=== PATIENT | male | born 1955 | race Caucasian/White ===

== ENCOUNTER 2020-08-31 14:01 | Outpatient (REF) | payer MEDICARE, MEDICAID, SELFPAY ==
--- NOTE | 2020-08-31 14:08 | CT_ITS ---
EXAMINATION: CT CHEST WITHOUT CONTRAST CLINICAL INFORMATION: Pulmonary nodule COMPARISON: 10/04/2019 TECHNIQUE: Multidetector volumetric CT imaging of the chest was done. Axial MIP volume rendering provided. Sagittal and coronal reformatted images were obtained. This CT examination was performed using dose optimization techniques as appropriate, variously including the following: *Automated exposure control *Adjustment of mA and/or kV according to patient size (this includes techniques or standardized protocols for targeted exams where dose is matched to indication/reason for exam; i.e. extremities or head) *Use of iterative reconstruction technique DLP: 273 mGy-cm FINDINGS: LUNGS: cc there are scattered calcified and noncalcified lymph nodes which are stable from the previous examination (see iglesias images). The largest nodule within the right lung measures 5 mm and contains central coarse calcification within the middle lobe, the largest within the left lung measures 6 mm containing central calcification within the left upper lobe. There are scattered nodules measuring 3 mm or less along the fissural pleural surfaces compatible with lymph nodes. No new or suspicious pulmonary nodules. MEDIASTINUM: Multiple enlarged mediastinal and bilateral hilar lymph nodes with associated coarse calcification are stable in size and appearance. This would include the 2.7 x 1.5 cm right paratracheal lymph node on series 3, image 20, and the 4.0 x 2.0 cm subcarinal lymph node on series 3, image 32. Heart normal in size without pericardial effusion. Great vessels normal caliber. PLEURA: There is no pleural effusion. No pleural mass. Stable areas of pleural thickening along the lateral right upper lobe. AXILLA: No lymphadenopathy. UPPER ABDOMEN: Stable punctate calcification in the upper pole of left kidney. This could represent a cortical calcification or nonobstructive stone. OSSEOUS STRUCTURES: No acute or suspicious osseous abnormalities. IMPRESSION: Stable calcified and noncalcified pulmonary nodules, and bulky mediastinal and bilateral hilar calcified lymph nodes. This most likely reflects granulomatous disease, such as sarcoidosis, however treated lymphoma, or less likely metastatic disease could also have this appearance.
== END 2020-08-31 14:02 | disposition home or self-care (01) ==
LOC: HO.CT 14:01
PROVIDERS: Visit Provider Internal Medicine Pulmonary Disease
DX: R91.8 Other nonspecific abnormal finding of lung field (principal)
CPT/HCPCS: 71250

== ENCOUNTER → 2020-11-12 14:11 | Outpatient (BNVA) | payer OTHER, SELFPAY | PROVIDERS: PCP Nurse Practitioner Family; Visit Provider Internal Medicine Pulmonary Disease | DX: D86.9 Sarcoidosis, unspecified (principal); R91.8 Other nonspecific abnormal finding of lung field | CPT/HCPCS: 99212 ==

== ENCOUNTER 2021-04-26 12:59 | Outpatient (REF) | payer OTHER, SELFPAY ==
--- NOTE | ~2021-04-26 | CT_ITS ---
EXAMINATION: CT CHEST WITHOUT CONTRAST CLINICAL INFORMATION: Follow-up pulmonary nodules COMPARISON: Previous chest CT scans August 2020 and September 2019 TECHNIQUE: Multidetector volumetric CT imaging of the chest was done. Axial MIP volume rendering provided. Sagittal and coronal reformatted images were obtained. This CT examination was performed using dose optimization techniques as appropriate, variously including the following: *Automated exposure control *Adjustment of mA and/or kV according to patient size (this includes techniques or standardized protocols for targeted exams where dose is matched to indication/reason for exam; i.e. extremities or head) *Use of iterative reconstruction technique DLP: 266 mGy-cm FINDINGS: [employer]: LUNGS: There are small bilateral pulmonary nodules that are stable. The largest left pulmonary nodule measures 6 mm in the central left upper lobe adjacent to a vessel with central calcification axial image 251 series 5. The largest right pulmonary nodule is a calcified nodule and measures 5 mm in the right middle lobe axial image 386 series 5. No new pulmonary nodules are seen. MEDIASTINUM: There are enlarged calcified mediastinal and bilateral hilar lymph nodes. These appear unchanged. The heart does not appear enlarged. There is no pericardial effusion. The thoracic aorta is normal in caliber. The thyroid gland has been removed. PLEURA: There is no pleural effusion. No pleural mass or thickening. AXILLA: No lymphadenopathy. UPPER ABDOMEN: Unremarkable. OSSEOUS STRUCTURES: There are degenerative changes of the spine. CT/CT chest wo con IMPRESSION: Stable calcified and noncalcified pulmonary nodules and calcified mediastinal and bilateral hilar lymph nodes.
== END 2021-04-26 13:00 | disposition home or self-care (01) ==
LOC: HO.CT 12:59
PROVIDERS: Visit Provider Internal Medicine Pulmonary Disease
DX: R91.8 Other nonspecific abnormal finding of lung field (principal)
CPT/HCPCS: 71250

== ENCOUNTER → 2021-05-14 13:37 | Outpatient (BNVA) | payer OTHER, SELFPAY | PROVIDERS: PCP Nurse Practitioner Family; Visit Provider Internal Medicine Pulmonary Disease | DX: D86.9 Sarcoidosis, unspecified (principal); R91.8 Other nonspecific abnormal finding of lung field | CPT/HCPCS: 99212 ==

== ENCOUNTER → 2021-12-10 12:56 | Outpatient (BNVA) | payer OTHER, SELFPAY | PROVIDERS: PCP Nurse Practitioner Family; Visit Provider Internal Medicine Pulmonary Disease | DX: D86.9 Sarcoidosis, unspecified (principal); R91.8 Other nonspecific abnormal finding of lung field | CPT/HCPCS: 99212 ==

== ENCOUNTER → 2022-06-17 12:41 | Outpatient (BNVA) | payer OTHER, SELFPAY | PROVIDERS: PCP Nurse Practitioner Family; Visit Provider Internal Medicine Pulmonary Disease | DX: D86.9 Sarcoidosis, unspecified (principal); R91.8 Other nonspecific abnormal finding of lung field | CPT/HCPCS: 99212 ==

== ENCOUNTER → 2023-03-27 14:51 | Outpatient (BNVA) | payer OTHER, SELFPAY | PROVIDERS: PCP Nurse Practitioner Family; Visit Provider Internal Medicine Pulmonary Disease | DX: D86.9 Sarcoidosis, unspecified (principal) | CPT/HCPCS: 99212 ==

== ENCOUNTER 2023-09-25 14:40 | Outpatient (AMB) | payer OTHER, SELFPAY ==
[2023-09-25 14:42] VITALS: BP 128/67; PULSE 84; O2SAT 96; BMI 34.7
--- NOTE | 2023-09-25 14:42 | A.OFFVIS_ITS ---
Intake Vital Signs 09/25/23 14:42 Height 5 ft 11 in Weight 249 lb 1.957 oz BMI 34.7 BP 128/67 Blood Pressure Location Lt brachial Position Sitting Pulse 84 Pulse Source Doppler Pulse Oximetry (%) 96 Oxygen Delivery Method Room Air Intake Visit Reasons: copd Allergies penicillin V Allergy (Unknown, Verified 09/25/23 14:44) Unknown bee stings Allergy (Severe, Uncoded 09/25/23 14:44) Anaphylaxis HPI copd HPI Details 68-year-old gentleman, lifetime nonsmoke r, followed for underlying sarcoidosis diagnosed with cervical lymph node biopsy.? He continues on Advair and albuterol MDI with good symptom control. He denies any recent exacerbations. [facility] Social History Advance Directives Date on File: 08/31/20 Review of Systems Const Denies daytime sleepiness, Denies excessive sweating, Denies fatigue, Denies fever(s), Denies lethargy, Denies malaise, Denies night sweats, Denies snoring and Denies weight loss Eyes Denies blurry vision and Denies itchy eyes ENT Denies nasal congestion, Denies post nasal drip, Denies sinus pain, Denies sinus pressure and Denies other ( Thrush) Card Denies chest pain, Denies pedal edema, Denies dyspnea, Denies orthopnea and Denies paroxysmal nocturnal dyspnea Resp Denies cough, Denies hemoptysis, Denies excessive phlegm production, Denies dyspnea, Denies snoring and Denies wheezing GI Denies abdominal pain and Denies heartburn Musc Denies myalgias, Denies arthralgias and Denies joint swelling Skin/Breast Denies rash Neuro Denies memory loss and Denies seizure-like activity Psych Denies abnormal sleep pattern, Denies anxiety and Denies memory loss Endo Denies excessive sweating, Denies fatigue and Denies heat intolerance Nitin/Lymph Denies easy bruising Aller/Immun Denies itchy eyes, Denies seasonal rhinorrhea and Denies wheezing Physical Exam Vital Signs: Last Vital Signs Pulse 84 09/25/23 14:42 BP 128/67 09/25/23 14:42 Pulse Ox 96 09/25/23 14:42 Oxygen Delivery Method Room Air 09/25/23 14:42 BMI result Body Mass Index 34.7 Const General: no acute distress and alert Nutritional Appearance: not obese Orientation/consciousness: Other orientation findings ( oriented) HEENT Head: Yes atraumatic Eyes General: appearance normal, both eyes and all related structures Sclerae: sclerae normal EOM: EOMs intact bilaterally Neck Neck: Yes supple Lymphatic: no lymphadenopathy noted Resp Effort & Inspection: normal respiratory effort and no use of accessory muscles Auscultation: clear to auscultation bilaterally Cardio Rate: regular rate Rhythm: regular rhythm Heart sounds: no gallops, no murmurs and no rubs Skin General skin exam: other ( warm) Extrem General: No clubbing, No cyanosis and No edema Assessment & Plan Assessment & Plan (1) Sarcoidosis: Code(s): D86.9 - Sarcoidosis, unspecified Plan: Well controlled on current regimen of Advair and albuterol MDI. Continue current regimen. Coding Level of Care Code Est Pt Level 3 (96542) Diagnoses Sarcoidosis D86.9
== END 2023-09-25 14:55 | disposition home or self-care (01) ==
PROVIDERS: PCP Nurse Practitioner Family; Visit Provider Internal Medicine Pulmonary Disease
DX: D86.9 Sarcoidosis, unspecified (principal)
CPT/HCPCS: 99213

== ENCOUNTER → 2023-09-25 14:40 | Outpatient (BNVA) | payer OTHER, SELFPAY | PROVIDERS: PCP Nurse Practitioner Family; Visit Provider Internal Medicine Pulmonary Disease | DX: D86.9 Sarcoidosis, unspecified (principal) | CPT/HCPCS: 99212 ==

== ENCOUNTER 2024-04-28 13:04 | Outpatient (AMB) | payer OTHER, SELFPAY ==
[2024-04-28 13:12] VITALS: BP 122/74; PULSE 82; O2SAT 98; BMI 34.9
--- NOTE | 2024-04-28 13:12 | A.OFFVIS_ITS ---
Vital Signs 04/28/24 13:12 Height 5 ft 11 in Weight 250 lb 3.594 oz BMI 34.9 BP 122/74 Blood Pressure Location Lt brachial Position Sitting Pulse 82 Pulse Source Doppler Pulse Oximetry (%) 98 Oxygen Delivery Method Room Air Intake Visit Reasons: copd Allergies penicillin V Allergy (Unknown, Verified 09/25/23 14:44) Unknown bee stings Allergy (Severe, Uncoded 09/25/23 14:44) Anaphylaxis HPI HPI copd: Details: 68-year-old gentleman, lifetime nonsmoker, followed for underlying sarcoidosis diagnosed with cervical lymph node biopsy.? He continues on Advair and albuterol MDI with good symptom control. He denies any recent exacerbations. [facility] Social History Advance Directives Date on File: 08/31/20 Review of Systems Const Denies daytime sleepiness, Denies excessive sweating, Denies fatigue, Denies fever(s), Denies lethargy, Denies malaise, Denies night sweats, Denies snoring and Denies weight loss Eyes Denies blurry vision and Denies itchy eyes ENT Denies nasal congestion, Denies post nasal drip, Denies sinus pain, Denies sinus pressure and Denies other ( Thrush) Card Denies chest pain, Denies pedal edema, Denies dyspnea, Denies orthopnea and Denies paroxysmal nocturnal dyspnea Resp Denies cough, Denies hemoptysis, Denies excessive phlegm production, Denies dyspnea, Denies snoring and Denies wheezing GI Denies abdominal pain and Denies heartburn Musc Denies myalgias, Denies arthralgias and Denies joint swelling Skin/Breast Denies rash Neuro Denies memory loss and Denies seizure-like activity Psych Denies abnormal sleep pattern, Denies anxiety and Denies memory loss Endo Denies excessive sweating, Denies fatigue and Denies heat intolerance Nitin/Lymph Denies easy bruising Aller/Immun Denies itchy eyes, Denies seasonal rhinorrhea and Denies wheezing Physical Exam Vital Signs: Last Vital Signs Pulse 82 04/28/24 13:12 BP 122/74 04/28/24 13:12 Pulse Ox 98 04/28/24 13:12 Oxygen Delivery Method Room Air 04/28/24 13:12 BMI result Body Mass Index 34.9 Const General: no acute distress and alert Nutritional Appearance: obese Orientation/consciousness: Other orientation findings ( oriented) HEENT Head: Yes atraumatic Eyes General: appearance normal, both eyes and all related structures Sclerae: sclerae normal EOM: EOMs intact bilaterally Neck Neck: Yes supple Lymphatic: no lymphadenopathy noted Resp Effort & Inspection: normal respiratory effort and no use of accessory muscles Auscultation: clear to auscultation bilaterally Cardio Rate: regular rate Rhythm: regular rhythm Heart sounds: no gallops, no murmurs and no rubs Skin General skin exam: other ( warm) Extrem General: No clubbing, No cyanosis and No edema Assessment & Plan Assessment & Plan (1) Sarcoidosis: Code(s): D86.9 - Sarcoidosis, unspecified Category: Medical Plan: No recent exacerbations. Continue to follow up clinically. (2) Reactive airway disease: Code(s): J45.909 - Unspecified asthma, uncomplicated Category: Medical Plan: Well controlled on Advair and albuterol MDI. Continue current regimen. Coding Level of Care Code Est Pt Level 4 (35759) Diagnoses Sarcoidosis D86.9 Reactive airway disease J45.909
== END 2024-04-28 13:59 | disposition home or self-care (01) ==
PROVIDERS: PCP Nurse Practitioner Family; Visit Provider Internal Medicine Pulmonary Disease
DX: D86.9 Sarcoidosis, unspecified (principal); J45.909 Unspecified asthma, uncomplicated
CPT/HCPCS: 99214

== ENCOUNTER → 2024-04-28 13:04 | Outpatient (BNVA) | payer OTHER, SELFPAY | PROVIDERS: PCP Nurse Practitioner Family; Visit Provider Internal Medicine Pulmonary Disease | DX: D86.9 Sarcoidosis, unspecified (principal); J45.909 Unspecified asthma, uncomplicated | CPT/HCPCS: 99212 ==

== ENCOUNTER 2025-03-09 13:23 | Outpatient (AMB) | payer OTHER, SELFPAY ==
[2025-03-09 13:24] VITALS: BP 122/70; PULSE 131; O2SAT 97; BMI 32.4
--- NOTE | 2025-03-09 13:24 | MHC.OFFVIS ---
Vital Signs 03/09/25 13:24 Height 5 ft 11 in Weight 232 lb BMI 32.4 BP 122/70 Blood Pressure Location Rt brachial Position Sitting Pulse 131 H Pulse Source Doppler Pulse Oximetry (%) 97 Oxygen Delivery Method Room Air Intake Visit Reasons: copd Allergies penicillin V Allergy (Unknown, Verified 03/09/25 13:28) Unknown bee stings Allergy (Severe, Uncoded 09/25/23 14:44) Anaphylaxis HPI HPI copd: Details: 68-year-old gentleman, lifetime nonsmoker, followed for underlying sarcoidosis diagnosed with cervical lymph node biopsy.? He is no longer able to tolerate Advair dry powder and has been relying on albuterol MDI with suboptimal control. He wants to try Airsupra. [facility] Social History Advance Directives Date on File: 08/31/20 Review of Systems Const Denies daytime sleepiness, Denies excessive sweating, Denies fatigue, Denies fever(s), Denies lethargy, Denies malaise, Denies night sweats, Denies snoring and Denies weight loss Eyes Denies blurry vision and Denies itchy eyes ENT Denies nasal congestion, Denies post nasal drip, Denies sinus pain, Denies sinus pressure and Denies other ( Thrush) Card Denies chest pain, Denies pedal edema, Denies dyspnea, Denies orthopnea and Denies paroxysmal nocturnal dyspnea Resp Denies cough, Denies hemoptysis, Denies excessive phlegm production, Denies dyspnea, Denies snoring and Denies wheezing GI Denies abdominal pain and Denies heartburn Musc Denies myalgias, Denies arthralgias and Denies joint swelling Skin/Breast Denies rash Neuro Denies memory loss and Denies seizure-like activity Psych Denies abnormal sleep pattern, Denies anxiety and Denies memory loss Endo Denies excessive sweating, Denies fatigue and Denies heat intolerance Nitin/Lymph Denies easy bruising Aller/Immun Denies itchy eyes, Denies seasonal rhinorrhea and Denies wheezing Physical Exam Vital Signs: Last Vital Signs Pulse 131 H 03/09/25 13:24 BP 122/70 03/09/25 13:24 Pulse Ox 97 03/09/25 13:24 Oxygen Delivery Method Room Air 03/09/25 13:24 BMI result Body Mass Index 32.4 Const General: no acute distress and alert Nutritional Appearance: not obese Orientation/consciousness: Other orientation findings ( oriented) HEENT Head: Yes atraumatic Eyes General: appearance normal, both eyes and all related structures Sclerae: sclerae normal EOM: EOMs intact bilaterally Neck Neck: Yes supple Lymphatic: no lymphadenopathy noted Resp Effort & Inspection: normal respiratory effort and no use of accessory muscles Auscultation: clear to auscultation bilaterally Cardio Rate: regular rate Rhythm: regular rhythm Heart sounds: no gallops, no murmurs and no rubs Skin General skin exam: other ( warm) Extrem General: No clubbing, No cyanosis and No edema Assessment & Plan Assessment & Plan (1) Sarcoidosis: Code(s): D86.9 - Sarcoidosis, unspecified Category: Medical (2) Reactive airway disease: Code(s): J45.909 - Unspecified asthma, uncomplicated Category: Medical Plan Suboptimal control on Advair as patient is not able to tolerate powder inhaler anymore. Will switch to Symbicort. Patient also wants to try Airsupra instead of albuterol. Ordered. Medications: New budesonide-formoterol 160-4.5 mcg/actuation (Symbicort) 2 puffs inhalation BID 10.2 grams 6RF albuterol-budesonide 90-80 mcg/actuation (Airsupra) 2 inhalations inhalation TID PRN 10.7 grams 6RF shortness of breath Coding Level of Care Code Est Pt Level 4 (77032) Diagnoses Sarcoidosis D86.9 Reactive airway disease J45.909
--- OUTSIDE RECORDS SUMMARY | 2025-03-09 15:42 | XMS_ITS ---
Author Name [facility] [place] [facility] [place] Address [address] [place] [address] Care Team Providers Care Unit Aide Tech Name Role Phone HUNTER MARTINEZ Primary Care Provider Unavailabl e Insurance Providers: All historical and current Section Date Range: From patient's date of to the date document was created. This section includes the names of all active insurance providers for the patient. Insurance Provider Type of Coverage Plan Name Start of Policy Coverage End of Policy Coverage Group Number Member ID Insurance Provider's Telephone Number Policy Carmona's Name Patient's Relationship to Policy Carmona [facility] Nov 16, 2014 01 [id number] LAUREL,JARRETT DE LA TORRE PATIENT MEDICARE (WNR) MEDICARE (M) PART A Jul 17, 2018 PART A [id number] LAUREL,JARRETT MEJIASONY PATIENT MEDICARE (WNR) MEDICARE (M) PART B Jul 17, 2018 PART B [id number] LAUREL,JARRETT MEJIASONY PATIENT MEDICARE (WNR) MEDICARE (M) PART A Jul 17, 2018 PART A [id number] LAUREL,JARRETT MEJIASONY PATIENT MEDICARE (WNR) MEDICARE (M) PART B Jul 17, 2018 PART B [id number] LAUREL,JARRETT DE [place] PATIENT Selected Encounter This section includes the information on record at [place] for the Encounter. Date/Time Encounter Type Encounter Description Reason Provider Source Sep 05, 2024 08:30 AM COMPRE OPH EXAM EST PT 1/> OPTOMETRY ICD-10-CM E11.3292 Type 2 diab with mild nonp rtnop without mclr edema, l eye MERHAR,NAMITA B IHE Encounter Template Text not used by VA Assessments - Encounter Diagnoses This section includes the primary and secondary diagnoses documented for the Encounter. Date/Time Primary/Secondary Diagnosis Diagnosis Name Provider Source Sep 05, 2024 08:49 AM PRIMARY Type 2 diab with mild nonp rtnop without mclr edema, l eye MERHAR,NAMITA B [place] [facility] [place] [facility] Sep 05, 2024 08:49 AM SECONDARY Age-related nuclear cataract, bilateral MERHAR,NAMITA B [facility] [place] [facility] Sep 05, 2024 08:49 AM SECONDARY Dry eye syndrome of bilateral lacrimal glands MERHAR,NAMITA B [place] [facility] [place] [facility] Sep 05, 2024 08:49 AM SECONDARY Regular astigmatism, bilateral MERHAR,NAMITA B [place] [facility] [place] [facility] Plan of Treatment: Future Appointments (+ 6 months) and Future Tests (+/- 45 days) The Plan of Treatment section includes future care activities for the patient from all [place] treatmentfacilities. This section includes future appointments and future orders which are active, pending or scheduled. Future Appointments This section includes appointments that were scheduled to occur 6 months from the date of the Encounter, up to a maximum of 20 appointments. The data comes from all [place] treatment facilities. Appointment Date/Time Appointment Type Appointme nt Facility Name Sep 06, 2024 12:00 PM AMBULATORY - NONE [facility] [place] [facility] Sep 08, 2024 11:00 AM [facility]ATORY - NONE [place] Sep 15, 2024 11:00 AM AMBULATORY - NONE [place] Sep 22, 2024 11:00 AM AMBULATORY - NONE [place] Sep 27, 2024 12:00 PM AMBULATORY - NONE [facility] [place] [facility] Sep 28, 2024 04:00 PM AMBULATORY - REHAB MEDICIN E [facility] [place] [facility] Oct 04, 2024 03:00 PM [facility]ULATORY - [facility]ICINE [place] [place] Oct 06, 2024 11:00 AM AMBULATORY - NONE [place] Oct 11, 2024 12:00 PM AMBULATORY - NONE [facility] [place] [facility] Oct 20, 2024 11:00 AM AMBULATORY - NONE [place] Oct 25, 2024 12:00 PM AMBULATORY - NONE [facility] [place] [facility] Oct 27, 2024 11:00 AM AMBULATORY - NONE [place] Oct 27, 2024 02:30 PM AMBULATORY - MEDICINE [facility] [place] [facility] Nov 03, 2024 09:00 AM AMBULATORY - MEDICINE [facility] [place] [facility] Nov 03, 2024 11:00 AM AMBULATORY - NONE [place] Dec 01, 2024 08:30 AM AMBULATORY - REHAB MEDICIN E [facility] [place] [facility] Dec 06, 2024 01:30 PM [facility]ORY [facility] Dec 08, 2024 11:00 AM AMBULATORY - NONE [place] Dec 13, 2024 12:00 PM AMBULATORY - NONE [facility] [place] [facility] Dec 15, 2024 11:00 AM AMBULATORY - NONE [place] Lab Results: +/- 30 days of the encounter This section includes the Chemistry and Hematology Lab Results on record with [place] for the patient. Radiology Reports and Pathology Reports are provided separately, in subsequent sections. Lab Results This section contains the Chemistry/Hematology Results that were resulted 30 days before or 30 daysafter the date of the Encounter. Date/Time Source Result Type Result - Unit Interpretation Reference Range Specimen Type Comment Aug 16, 2024 02:05 PM [facility] [place] [facility] T3, FREE (QU) SERUM Specimen Type: SERUM Comment: Test Performed by [employer], [employer] [facility], [address] [place] [address] Benjamin Ortiz M.D., Ph.D., Director of Laboratories , CLIA [id number] TEST PERFORMED AT: , Ordering Provider: ESTEFANI QUESADA Report Released Date/Time: Aug 16, 2024 06:36 AM Reporting Lab: [place] [facility] [place] [address] [address] Performing Lab: [facility] [place] [facility] [address] [address] T3, FREE (QU) 2.3 pg/mL 2.3-4.2 Aug 16, 2024 02:05 PM [facility] [place] [facility] THYROID TOTAL T4 SERUM Specimen Type: SERUM No comment entered. Ordering Provider: ESTEFANI QUESADA Report Released Date/Time: Aug 16, 2024 06:36 AM Reporting Lab: [facility] [place] [facility] [address] [facility] [address] Performing Lab: [facility] [place] [facility] [address] [facility] [address] THYROID TOTAL T4 7.92 ug/dL 4.5-12.0 Aug 16, 2024 02:05 PM [facility] TSH SERUM Specimen Type: SERUM No comment entered. Ordering Provider: ESTEFANI QUESADA Report Released Date/Time: Aug 16, 2024 06:36 AM Reporting Lab: [facility] [place] [facility] [address] [facility] [address] Performing Lab: [facility] [address] [facility] [address] TSH 0.98 u[IU]/mL 0.35-5.00 Social History: Smoking Status (Most current) and Tobacco Use (All prior to encounter date) This section includes the most current, and the historical, smoking and tobacco- related health factors from the [place] facility where the Encounter took place. Current Smoking Status This section includes the most current smoking, or tobacco-related health factor, from the [place] facility where the Encounter took place. Date/Time Current Smoking Status Comment Facil [facility] Dec 10, 2023 01:11 PM VA-TOBACCO NEVER USED [facility] Advance Directives: All historical and current Section Date Range: From patient's date of to the date document was created. This section includes ALL of a patient's completed or amended VA Advance and Rescinded Directives. The entries below indicate that a directive exists for the patient, but an actual copy is not included with this document. The data comes from all [place] facilities. Date Advance Directives Provider Source Aug 07, 2015 ADVANCE DIRECTIVE BEN BERNABE SEVERINO Encounter Notes: All associated encounter notes This section contains the clinical notes associated to the Encounter. Date/Time Encounter Note(s) Provider Source Sep 05, 2024 07:56 AM OPTOMETRY NOTE: LOCAL TITLE: OPTOMETRY NOTE STANDARD TITLE: OPTOMETRY NOTE DATE OF NOTE: SEP 05, 2024@07:56 ENTRY DATE: SEP 05, 2024@07:56:10 AUTHOR: NAMITA CRUZ EXP COSIGNER: URGENCY: STATUS: COMPLETED 69 WHITE MALE NOT OR Last eye exam: 09/03/23 Reason for Visit/CC: patient here for a comprehensive eye exam. Stopped the eyedrops because he didn't feel like he needed them, doing ok without them OHx: 1. Type II diabetes without diabetic retinopathy without macular edema OU 2. Nuclear sclerosis cataracts OU 3. 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 4. Refractive error OU/presbyopia 5. dry eye OU (-) Pain: (-) GALINDO: (-) Diplopia: (-) Flashes: (-) Floaters: (-) Amaurosis Fugax/Tia's: (-) Eye Injury: (+) Eye Surgery: pt denies, corneal scar OS consistent with RK (-) TBI (-) FOHx: MHx: Code Description Z77.29 Exposure to potentially hazardous substance ([facility] [id number]) H17.89 History of radial keratotomy ([facility] [id number]) R69. 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 ([facility] [id number]) E66.8 Obesity ([facility] [id number]) M17.0 Osteoarthritis of knee ([facility] [id number]) 799.9 outside providers (ICD-9-CM 799.9) C76.0 Neoplasm of neck ([facility] [id number]) D09.3 Thyroid cancer ([facility] [id number]) F20.9 Schizophrenia ([facility] [id number]) E11.65 Diabetes mellitus ([facility] [id number]) E78.5 Hyperlipidemia ([facility] [id number]) K59.00 Constipation ([facility] [id number]) Other: SYSTEMIC MEDICATIONS/OCULAR MEDICATIONS: Active and Recently Outpatient Medications (excluding Supplies): Active Outpatient Medications Status ========= 1) ALBUTEROL 90MCG (CFC-F) 200D ORAL INHL INHALE 2 PUFFS ACTIVE BY MOUTH EVERY 4 HOURS NEEDED FOR ASTHMA ATTACK 2) EMPAGLIFLOZIN 25MG TAB TAKE ONE TABLET BY MOUTH ONCE ACTIVE (S) DAILY FOR TYPE 2 DIABETES MELLITUS 3) FLUTICAS 250/SALMETEROL 50 INHL DISK 60 INHALE 1 PUFF ACTIVE BY MOUTH TWICE DAILY 4) GLUCOSE 4GM CHEW TAB CHEW FOUR TABLETS BY MOUTH ACTIVE NEEDED FOR LOW BLOOD SUGAR 5) INSULIN,GLARGINE-YFGN 100UNIT/ML PEN 3ML INJECT 10 ACTIVE (S) UNITS SUBCUTANEOUSLY ONCE DAILY FOR DIABETES 6) LEVOTHYROXINE NA (SYNTHROID) 150MCG TAB TAKE ONE ACTIVE (S) TABLET BY MOUTH EVERY MORNING 30 MINUTES BEFORE BREAKFAST FOR THYROID - TAKE ON AN EMPTY STOMACH WITH A FULL GLASS OF WATER 7) METFORMIN HCL 1000MG TAB TAKE ONE TABLET BY MOUTH ACTIVE TWICE DAILY FOR DIABETES Inactive Outpatient Medications Status ========= 1) CARBOXYMETHYLCELLULOSE NA 0.5% OPH SOLN INSTILL 1 DROP INTO EACH EYE FOUR TIMES DAILY NEEDED FOR DRYNESS Active Non-VA Medications Status ========= 1) Non-VA ASCORBIC ACID 500MG TAB 1000MG BY MOUTH ONCE ACTIVE DAILY 2) Non-VA BISACODYL 5MG EC TAB 5MG BY MOUTH TWICE DAILY ACTIVE 3) Non-VA CHOLECALCIF 50MCG (D3-2,000UNIT) TAB 2000UNIT ACTIVE BY MOUTH DAILY 4) Non-VA DOCUSATE NA 100MG CAP 100MG BY MOUTH TWICE ACTIVE DAILY 5) Non-VA FENOFIBRATE 145MG TAB 145MG BY MOUTH ONCE ACTIVE DAILY 6) Non-VA FLAXSEED CAP,ORAL BY MOUTH DAILY ACTIVE 7) Non-VA LISINOPRIL 20MG TAB 20MG BY MOUTH ONCE DAILY ACTIVE 8) Non-VA MULTIVITAMIN/MINERALS CAP/TAB 1 TABLET BY ACTIVE MOUTH AT BEDTIME 9) Non-VA OLANZAPINE 15MG TAB 15MG BY MOUTH AT BEDTIME ACTIVE 10) Non-VA POLYETHYLENE GLYCOL 3350 ORAL PWDR 17 GRAMS (1 ACTIVE CAPFUL) BY MOUTH AT BEDTIME 11) Non-VA SIMVASTATIN 80MG TAB 40MG BY MOUTH AT BEDTIME ACTIVE 19 Total Medications ALLERGIES: PENICILLIN, BEE STINGS LAST BP: 99/72 (12/10/2023 13:03) PERTINENT LABS: HEMOGLOBIN A1C; BLOOD Silvia. Date: 04/21/24 13:35 12/10/23 13:50 Test Name Result Units Range HEMOGLOBIN A1C 6.2 H 6.1 H % 4.0 - 5.6 Current Rx with last BCVA: OD:-0.75-1.89m386 20/20 OS:+0.75-0.31w321 20/20 Add:+2.50 DVA ( )sc ( x )cc OD 20/25+2 OS 20/20-1 Pupils: PERRL (-)APD EOM: Full all meridia OU, (-) pain/diplopia Confrontation Visual Swan: Full all meridia OU Subjective: OD plano -1.25 x 090 20/20 OS +1.00 -0.50 x 095 20/20 Add: +2.50 20/20 OU SLE: Lids/Lashes: clear OU Conjunctiva: white and quiet OU Corneas: mild inferior SPK OU, 4 radial scars OS Iris: flat and clear OU (-)NVI OU Anterior Chamber: deep and quiet OU Angles: open OU Lens: 1+ NS OU TAP @ 8:10am Salazar OD 18 mm Hg OS 18 mm Hg Dilating Drops: 1 gtt 1% Tropicamide OU, 2.5% phenylephrine OU (Pt. ed. on side effects) Vitreous: Syneresis OU C/D (Size and Rim Description) OD 0.25 pink & healthy OS 0.25 pink & healthy (-)NVD OU Macula OD flat and clear OS flat and clear (-)CSME OU A/V: attenuation OU with increased arterial light reflex OU Posterior Pole: clear OD, 1 dot hemorrhage superior arcade OS Periphery: Flat and intact (-)NVE, holes, tears, detachments 360 OU chorioretinal scar temporally OS Assessment/Plan: 1. 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 Pt ed on findings and importance of good blood glucose control. Monitor 2. Nuclear sclerosis cataracts OU, not visually significant. Monitor 3. 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 4. dry eye OU - defers artificial tears at this time. 5. regular astigmatism OU - order new DVO clear and sun and NVO RTC 1 year or earlier PRN Patient Education: Diabetes: Patient was educated regarding diabetes and related ocular complications including retinopathy and cataract formation as well as other related systemic complications. The importance of good blood sugar control, blood sugar testing as recommended by their PCP and the importance of timely follow up were all emphasized. patient offered and declined printed medication list Medication Reconciliation: Outpatient: Has the patient been taking medications as documented in the EMLR? YES: The patient has been taking medications as documented in the EMLR. Essential Medication List for Review used to complete this medication reconciliation. INCLUDED IN THIS LIST: Alphabetical list of active outpatient prescriptions dispensed from this [facility] (local) and dispensed from another [place] or [facility] facility (remote) as well as inpatient orders (local, pending and active), local clinic medications, locally documented non-VA medications, and local prescriptions that have or been discontinued in the past 90 days. - All changes in medications, including all non-VA/Herbal/OTC medications were entered into CPRS. - If there were any medications the patient should no longer take, they were discontinued. - The patient/caregiver was instructed to update this list, discard old lists, and take this list to the next appointment, whether with a VA or non-VA provider. JLV Link Data on this list may not be complete. Please check JLV. Allergies/ADRs (Tool #5) FACILITY ALLERGY/ADR -------- No Remote Allergy/ADR Data available for this patient [facility] [place] [facility] PENICILLIN Med Recon NoGlossary (Tool #1) INCLUDED IN THIS LIST: Alphabetical list of active outpatient prescriptions dispensed from this [place] (local) and dispensed from another [place] or [facility] facility (remote) as well as inpatient orders (local pending and active), local clinic medications, locally documented non-VA medications, and local prescriptions that have or been discontinued in the past 90 days. Non-VA Meds Last Documented On: Dec 10, 2023 NOTE The display of VA prescriptions dispensed from another [place] or [place] facility (remote) is limited to active outpatient prescription entries matched to National Drug File at the originating site and may not include some items such as investigational drugs, compounds, etc. NOT INCLUDED IN THIS LIST: Medications self-entered by the patient into personal health records (i.e. [employer]) are NOT included in this list. Non-VA medications documented outside this [place], remote inpatient orders (regardless of status) and remote clinic medications are NOT included in this list. The patient and provider must always discuss medications the patient is taking, regardless of where the medication was dispensed or obtained. -------- OUTPT ALBUTEROL 90MCG (CFC-F) 200D ORAL INHL (Status = Active) INHALE 2 PUFFS BY MOUTH EVERY 4 HOURS NEEDED FOR ASTHMA ATTACK Rx# [id number] Last Released: 07/08/24 Qty/Days Supply: Rx Expiration Date: 12/10/24 Refills Remainin Indication: FOR ASTHMA ATTACK Non-VA ASCORBIC ACID 500MG TAB TAKE TWO TABLETS BY MOUTH ONCE DAILY Medication prescribed by Non-VA provider. Non-VA BISACODYL 5MG EC TAB TAKE ONE TABLET BY MOUTH TWICE DAILY Medication prescribed by Non-VA provider. OUTPT CARBOXYMETHYLCELLULOSE NA 0.5% OPH SOLN (Status = ) INSTILL 1 DROP INTO EACH EYE FOUR TIMES DAILY NEEDED FOR DRYNESS Rx# [id number] Last Released: 09/11/23 Qty/Days Supply: Rx Expiration Date: 09/03/24 Refills Remainin Non-VA CHOLECALCIF 50MCG (D3-2,000UNIT) TAB TAKE ONE TABLET BY MOUTH DAILY Medication prescribed by Non-VA provider. Non-VA DOCUSATE NA 100MG CAP TAKE 1 CAPSULE BY MOUTH TWICE DAILY Medication prescribed by Non-VA provider. OUTPT EMPAGLIFLOZIN 25MG TAB (Status = ) TAKE ONE TABLET BY MOUTH ONCE DAILY FOR DIABETES Rx# [id number] Last Released: 04/21/24 Qty/Days Supply: Rx Expiration Date: 07/09/24 Refills Remainin OUTPT EMPAGLIFLOZIN 25MG TAB (Status = Discontinued) TAKE ONE TABLET BY MOUTH ONCE DAILY FOR TYPE 2 DIABETES MELLITUS Rx# [id number] Last Released: 07/13/24 Qty/Days Supply: Rx Expiration Date: 07/13/25 Refills Remainin Indication: FOR TYPE 2 DIABETES MELLITUS OUTPT EMPAGLIFLOZIN 25MG TAB (Status = Active/Suspended) TAKE ONE TABLET BY MOUTH ONCE DAILY FOR TYPE 2 DIABETES MELLITUS Rx# [id number] Last Released: Qt/Days Supply: Rx Expiration Date: 08/18/25 Refills Remainin Indication: FOR TYPE 2 DIABETES MELLITUS Non-VA FENOFIBRATE 145MG TAB TAKE ONE TABLET BY MOUTH ONCE DAILY Medication prescribed by Non-VA provider. Indication: FOR HIGH CHOLESTEROL Non-VA FLAXSEED CAP,ORAL TAKE BY MOUTH DAILY OUTPT FLUTICAS 250/SALMETEROL 50 INHL DISK 60 (Status = Active) INHALE 1 PUFF BY MOUTH TWICE DAILY Rx# [id number] Last Released: 07/08/24 Qty/Days Supply: 12/15 Rx Expiration Date: 12/10/24 Refills Remainin OUTPT GLUCOSE 4GM CHEW TAB (Status = Active) CHEW FOUR TABLETS BY MOUTH NEEDED FOR LOW BLOOD SUGAR Rx# [id number] Last Released: 07/08/24 Qt/ Supply: Rx Expiration Date: 07/06/25 Refills Remainin Indication: FOR LOW BLOOD SUGAR OUTPT INSULIN,GLARGINE-YFGN 100UNIT/ML PEN 3ML (Status = ) INJECT 26 UNITS SUBCUTANEOUSLY ONCE DAILY Rx# [id number] Last Released: 07/13/23 Qty/Days Supply: Rx Expiration Date: 07/09/24 Refills Remainin Indication: FOR DIABETES OUTPT INSULIN,GLARGINE-YFGN 100UNIT/ML PEN 3ML (Status = Active/Suspended) INJECT 10 UNITS SUBCUTANEOUSLY ONCE DAILY FOR DIABETES Rx# [id number] Last Released: Supply: Rx Expiration Date: 08/18/25 Refills Remainin Indication: FOR DIABETES OUTPT LEVOTHYROXINE NA (SYNTHROID) 150MCG TAB (Status = Discontinued) TAKE ONE TABLET BY MOUTH EVERY MORNING 30 MINUTES BEFORE BREAKFAST FOR THYROID - TAKE ON AN EMPTY STOMACH WITH A FULL GLASS OF WATER Rx# [id number] Last Released: 07/28/24 Qty/Days Supply: Rx Expiration Date: 11/18/24 Refills Remainin OUTPT LEVOTHYROXINE NA (SYNTHROID) 150MCG TAB (Status = Active/Suspended) TAKE ONE TABLET BY MOUTH EVERY MORNING 30 MINUTES BEFORE BREAKFAST FOR THYROID - TAKE ON AN EMPTY STOMACH WITH A FULL GLASS OF WATER Rx# [id number] Last Released: Supply: Rx Expiration Date: 08/24/25 Refills Remainin Non-VA LISINOPRIL 20MG TAB TAKE ONE TABLET BY MOUTH ONCE DAILY Medication prescribed by Non-VA provider. OUTPT METFORMIN HCL 1000MG TAB (Status = Discontinued) TAKE ONE TABLET BY MOUTH TWICE DAILY FOR DIABETES Rx# [id number] Last Released: 06/08/24 Qt/ Supply: Rx Expiration Date: 10/19/24 Refills Remainin OUTPT METFORMIN HCL 1000MG TAB (Status = Active) TAKE ONE TABLET BY MOUTH TWICE DAILY FOR DIABETES Rx# [id number] Last Released: Supply: Rx Expiration Date: 08/18/25 Refills Remainin Non-VA MULTIVITAMIN/MINERALS CAP/TAB TAKE ONE TABLET BY MOUTH AT BEDTIME Medication prescribed by Non-VA provider. OUTPT NIACIN (SLO-NIACIN) 500MG TAB,SA (Status = Discontinued) TAKE THREE TABLETS BY MOUTH ONCE DAILY PER DR. CASANOVA Rx# [id number] Last Released: 05/26/24 Qty/Days Supply: 300/90 Rx Expiration Date: 10/23/24 Refills Remainin Non-VA OLANZAPINE 15MG TAB TAKE ONE TABLET BY MOUTH AT BEDTIME Medication prescribed by Non-VA provider. Non-VA POLYETHYLENE GLYCOL 3350 ORAL PWDR TAKE 17 GRAMS (1 CAPFUL) BY MOUTH AT BEDTIME Medication prescribed by Non-VA provider. Non-VA SIMVASTATIN 80MG TAB TAKE ONE-HALF TABLET BY MOUTH AT BEDTIME Apr 27, 2020 Medication prescribed by Non-VA provider. OUTPT SODIUM FLUORIDE 1.1% (FL 0.5%) DENT GEL (Status = ) APPLY PEA SIZE AMOUNT TO TEETH AT BEDTIME FOR TOOTH DECAY PREVENTION Rx# [id number] Last Released: 06/16/24 Qty/Days Supply: 180 Rx Expiration Date: 07/13/24 Refills Remainin Indication: FOR TOOTH DECAY PREVENTION -------- SUPPLIES -------- OUTPT GLUCOSE SENSOR [employer] G7 (Status = Active) USE 1 SENSOR DIRECTED EVERY 10 DAYS Rx# [id number] Last Released: 06/24/24 Qty/Days Supply: Rx Expiration Date: 04/22/25 Refills Remainin OUTPT LANCET,SOFTCLIX (Status = Active) USE 1 LANCET TOPICALLY TWICE DAILY TO TEST BLOOD SUGAR Rx# [id number] Last Released: 09/18/23 Qty/Days Supply: 200/90 Rx Expiration Date: 09/18/24 Refills Remainin OUTPT NEEDLE,PEN 31G,5MM (Status = ) USE 1 NEEDLE SUBCUTANEOUSLY ONCE DAILY FOR USE WITH PEN DEVICE Rx# [id number] Last Released: 05/23/24 Qty/Days Supply: 100/90 Rx Expiration Date: 07/14/24 Refills Remainin OUTPT NEEDLE,PEN 31G,5MM (Status = Active) USE 1 NEEDLE SUBCUTANEOUSLY ONCE DAILY FOR USE WITH PEN DEVICE Rx# [id number] Last Released: 08/22/24 Qty/Days Supply: 100/90 Rx Expiration Date: 08/18/25 Refills Remainin /damaris/ NAMITA CRUZ OD Car Dumper Operator Signed: 09/05/2024 08:49 NAMITA CRUZ [facility]
--- OUTSIDE RECORDS SUMMARY | 2025-03-09 15:43 | XMS_ITS | Encounter Summary ---
Author Name [facility] [place] Address [address] [place] [address] Care Team Providers Care Asthma Educator Name Role Phone HUNTER MARTINEZ Primary Care [...] Carmona's Name Patient's Relationship to Policy Carmona [facility] MEDICAID [facility] Nov 16, 2014 01 [id number] JARRETT BARRAGAN PATIENT MEDICARE (WNR) MEDICARE (M) PART A Jul 17, 2018 PART A [id number] LAUREL,JARRETT [place] PATIENT MEDICARE (WNR) MEDICARE (M) PART B Jul 17, 2018 PART B [id number] LAUREL,JARRETT MEJIASONY PATIENT MEDICARE (WNR) MEDICARE (M) PART A Jul 17, 2018 PART A [id number] JARRETT BARRAGAN PATIENT MEDICARE (WNR) MEDICARE (M) PART B Jul 17, 2018 PART B [id number] JARRETT BARRAGAN PATIENT Selected Encounter This section includes the information on record at [place] for the Encounter. Date/Time Encounter Type Encounter Description Reason Provider Source Mar 06, 2025 07:30 AM EXERCISE CLASS HEALTH/[facility] ICD-10-CM Z72.3 Lack of physical exercise DESTINEY HORTON E Encounter Template Text not used by [place] Assessments - Encounter Diagnoses This section includes the primary and secondary diagnoses documented for the Encounter. Date/Time Primary/Secondary Diagnosis Diagnosis Name Provider Source Mar 06, 2025 10:49 AM PRIMARY Lack of physical exercise DESTINEY HORTON [facility] Plan of Treatment: Future Appointments (+ 6 months) and Future Tests (+/- 45 days) The Plan of Treatment section includes future care activities for the patient [facility] [place] [facility]. This section includes future appointments and future orders which are active, pending or scheduled. Future Appointments This section includes appointments that were scheduled to occur 6 months from the date of the Encounter, up to a maximum of 20 appointments. The data comes from all [place] treatment facilities. Appointment Date/Time Appointment Type Appointme nt Facility Name Mar 07, 2025 12:00 PM [facility] Mar 09, 2025 11:00 AM AMBULATORY - NONE [facility] Mar 09, 2025 01:30 PM [facility] April 04, 2025 02:00 PM AMBULATORY - MEDICINE [facility] Jun 13, 2025 03:00 PM [facility] Jun 29, 2025 03:00 PM AMBULATORY - MEDICINE [facility] Active, Pending, and Scheduled Orders This section includes a listing of several types of active, pending, and scheduled orders, including clinic medications orders, diagnostic test orders, procedure orders and consult orders; where the start date of the order is 45 days before the date of the Encounter or 45 days after the date of theEncounter. The data comes from all [place] treatment facilities. Test Date/Time Test Type Test Details Facility Name Feb 22, 2025 09:49 AM Consult Order COMMUNITY CARE-PULMONARY Cons Scraper Operator's Choice [facility] Social History: Smoking Status (Most current) and Tobacco Use (All prior to encounter date) This section includes the most current, and the historical, smoking and tobacco- related health factors from the [place] facility where the Encounter took place. Current Smoking Status This section includes the most current smoking, or tobacco-related health factor, from the [place] facility where the Encounter took place. Date/Time Current Smoking Status Genesis hamm Dec 10, 2023 01:11 PM VA-TOBACCO NEVER USED [facility] Advance Directives: All historical and current Section Date Range: From patient's date of to the date document was created. This section includes ALL of a patient's completed or amended [place] Advance and Rescinded Directives. The entries below indicate that a directive exists for the patient, but an actual copy is not included with this document. The data comes from all [place] facilities. Date Advance Directives Provider Source Aug 07, 2015 ADVANCE DIRECTIVE BEN BERNABE Encounter Notes: All associated encounter notes This section contains the clinical notes associated to the Encounter. Date/Time Encounter Note(s) Provider Source Mar 06, 2025 10:48 AM PHYSICAL MEDICINE REHAB NOTE: LOCAL TITLE: GEROFIT-SUPERVISED EXERCISE NOTE STANDARD TITLE: PHYSICAL MEDICINE REHAB NOTE DATE OF NOTE: MAR 06, 2025@10:48 ENTRY DATE: MAR 06, 2025@10:48:47 AUTHOR: JACQUI HORTON EXP COSIGNER: URGENCY: STATUS: COMPLETED participated in the [facility] exercise program today. Activities were focused on progression of their individual exercise prescription (cardiorespiratory fitness training, strength training, etc.) and group based exercise sessions to include, but not limited to: flexibility training, balance training, functional circuit training, Juanpablo Chi for arthritis, and other functional strength and neuromotor exercises. Exercise participation [facility] supervised [facility] and any questions/concerns were addressed with the patient. Modifications were made to programming as appropriate to suit Veterans individual needs, preferences, and whole health concerns. /damaris/ MILLY BALTAZAR LICENSE TURN LASTER Signed: 03/06/2025 10:53 JACQUI HORTON [facility]
--- OUTSIDE RECORDS SUMMARY | 2025-03-09 15:43 | XMS_ITS ---
Author Name [facility] [place] Address [address] [place] [address] Care Team Providers Care Labor Standards Director Name Role Phone HUNTER MARTINEZ Primary Care [...] Carmona's Name Patient's Relationship to Policy Carmona [facility] MEDICAID [facility] Nov 16, 2014 01 [id number] LAUREL,JARRETT DE [place] PATIENT MEDICARE (WNR) MEDICARE (M) PART A Jul 17, 2018 PART A [id number] LAUREL,JARRETT MEJIASONY PATIENT MEDICARE (WNR) MEDICARE (M) PART B Jul 17, 2018 PART B [id number] LAUREL,JARRETT MEJIASONY PATIENT MEDICARE (WNR) MEDICARE (M) PART A Jul 17, 2018 PART A [id number] LAUREL,JARRETT MEJIASONY PATIENT MEDICARE (WNR) MEDICARE (M) PART B Jul 17, 2018 PART B [id number] LAUREL,JARRETT DE [place] PATIENT Selected Encounter This section includes the information on record at [place] for the Encounter. Date/Time Encounter Type Encounter Description Reason Pro vider Source Jan 18, 2025 02:30 AM Outpatient Encounter ADMIN PAT ACTIVTIES (SUNGNONCT) IHE Encounter Template Text not used by [place] Plan of Treatment: Future Appointments (+ 6 months) and Future Tests (+/- 45 days) The Plan of Treatment section includes future care activities for the patient from all [place] treatmentfacilities. This section includes future appointments and future orders which are active, pending or scheduled. Future Appointments This section includes appointments that were scheduled to occur 6 months from the date of the Encounter, up to a maximum of 20 appointments. The data comes from all [place] treatment facilities. Appointment Date/Time Appointment Type Appointme nt Facility Name Jan 19, 2025 11:00 AM AMBULATORY - NONE [facility] Jan 20, 2025 01:00 PM [facility] Jan 26, 2025 11:00 AM AMBULATORY - NONE [place] Feb 02, 2025 11:00 AM AMBULATORY - NONE [facility] [facility] Feb 07, 2025 12:00 PM [facility]ONE [facility] [place] Feb 07, 2025 03:00 PM [facility]ORY - [facility]IC[place] [facility] Feb 09, 2025 11:00 AM AMBULATORY - NONE [facility] [facility] Feb 16, 2025 11:00 AM AMBULATORY - NONE [facility] Feb 21, 2025 12:00 PM [facility]ORY [facility]ONE [facility] [place] Feb 23, 2025 11:00 AM AMBULATORY - NONE [facility] Mar 02, 2025 11:00 AM AMBULATORY - NONE [place] Mar 07, 2025 12:00 PM AM[facility]UL[facility]ORY [facility]ONE [facility] [place] Mar 09, 2025 11:00 AM AMBULATORY - NONE [facility] Mar 09, 2025 01:30 PM [facility] [place] April 04, 2025 02:00 PM AMBULATORY - MEDICINE [facility] Jun 13, 2025 03:00 PM AMBULATORY - MEDICINE [facility] Jun 29, 2025 03:00 PM AMBULATORY - [place]ICINE [facility] [place] [facility] Active, Pending, and Scheduled Orders This section includes a listing of several types of active, pending, and scheduled orders, including clinic medications orders, diagnostic test orders, procedure orders and consult orders; where the start date of the order is 45 days before the date of the Encounter or 45 days after the date of theEncounter. The data comes from all [place] treatment facilities. Test Date/Time Test Type Test Details Facility Name Feb 22, 2025 09:49 AM Consult Order COMMUNITY CARE-PULMONARY Cons Order Picker/Assembler's Bruce [place] Social History: Smoking Status (Most current) and Tobacco Use (All prior to encounter date) This section includes the most current, and the historical, smoking and tobacco- related health factors from the [place] facility where the Encounter took place. Current Smoking Status This section includes the most current smoking, or tobacco-related health factor, from the [place] facility where the Encounter took place. Date/Time Current Smoking Status Comment Facil ity Dec 10, 2023 01:11 PM VA-TOBACCO NEVER USED [place] [facility] [place] [facility] Advance Directives: All historical and current Section Date Range: From patient's date of to the date document was created. This section includes ALL of a patient's completed or amended [place] Advance and Rescinded Directives. The entries below indicate that a directive exists for the patient, but an actual copy is not included with this document. The data comes from all [place] facilities. Date Advance Directives Provider Source Aug 07, 2015 ADVANCE DIRECTIVE BEN BERNABE [facility] Encounter Notes: All associated encounter notes This section contains the clinical notes associated to the Encounter. Date/Time Encounter Note(s) Provider Source Jan 18, 2025 02:30 AM PHARMACY NOTE: LOCAL TITLE: PHARMACY CUSTOMER CARE MEDICATION RENEWAL STANDARD TITLE: PHARMACY NOTE DATE OF NOTE: JAN 18, 2025@02:30 ENTRY DATE: JAN 18, 2025@02:30:47 AUTHOR: RUBY KOEHLER COSIGNER: URGENCY: STATUS: COMPLETED Date: Jan Division: [place] Pt referred by Pharmacy Call Center for medication renewal: Non-controlled/maintenanc e medication Medications requested: [id number] GLUCOSE 4GM CHEW TAB Defer to primary care provider To be mailed . Please review and renew if appropriate. *This note was generated by [facility] Customer Care. If you have any questions or need assistance, do not contact this author. Please refer all questions to your local, on-site pharmacy departments. /damaris/ RUBY KOEHLER CPhT Payable Manager, [place]/Pharmacy Customer Care Signed: 01/18/2025 02:31 Receipt Acknowledged By: 01/18/2025 08:21 /damaris/ TYLOR EVANS REGISTERED NURSE 01/18/2025 08:02 /damaris/ HUNTER MARTINEZ NP NURSE PRACTITIONER RUBY KOEHLER [facility]
--- OUTSIDE RECORDS SUMMARY | 2025-03-09 15:43 | XMS_ITS | Encounter Summary ---
Author Name [facility] Organization [facility] Address [address] [place] [id number] Care Team Providers Care Clerical And Administrative Workers Name Role Phone HUNTER MARTINEZ Primary Care [...] Carmona's Name Patient's Relationship to Policy Carmona [place] Nov 16, 2014 01 [id number] LAUREL,JARRETT MEJIASONY PATIENT MEDICARE (WNR) MEDICARE (M) PART A Jul 17, 2018 PART A [id number] LAUREL,AN WIL PATIENT MEDICARE (WNR) MEDICARE (M) PART B Jul 17, 2018 PART B [id number] LAUREL,AN WIL PATIENT MEDICARE (WNR) MEDICARE (M) PART A Jul 17, 2018 PART A [id number] LAUREL,AN WIL PATIENT MEDICARE (WNR) MEDICARE (M) PART B Jul 17, 2018 PART B [id number] LAUREL,JARRETT [place] PATIENT Selected Encounter This section includes the information on record at ID for the Encounter. Date/Time Encounter Type Encounter Description Reason Provider Source Oct 27, 2024 02:30 PM MTMS BY PHARM RAFA 15 MIN CLINICAL PHARMACY ICD-10-CM E11.65 Type 2 diabetes mellitus with hyperglycemia KRISTEL THOMPSON [facility] Encounter Template Text not used by ID Assessments - Encounter Diagnoses This section includes the primary and secondary diagnoses documented for the Encounter. Date/Time Primary/Secondary Diagnosis Diagnosis Name Provider Source Oct 27, 2024 02:52 PM PRIMARY Type 2 diabetes mellitus with hyperglycemia RITO THOMPSON [place] Plan of Treatment: Future Appointments (+ 6 months) and Future Tests (+/- 45 days) The Plan of Treatment section includes future care activities for the [facility] This section includes future appointments and future orders which are active, pending or scheduled. Future Appointments This section includes appointments that were scheduled to occur 6 months from the date of the Encounter, up to a maximum of 20 appointments. The data comes from all ID treatment facilities. Appointment Date/Time Appointment Type Appointme nt Facility Name Nov 03, 2024 09:00 AM AMBULATORY - MEDICINE [facility] Nov 03, 2024 11:00 AM AMBULATORY - NONE [place] Dec 01, 2024 08:30 AM AMBULATORY - REHAB MEDICIN [facility] Dec 06, 2024 01:30 PM AMBULATORY - MEDICINE [place] Dec 08, 2024 11:00 AM AMBULATORY - NONE [place] Dec 13, 2024 12:00 PM AMBULATORY - NONE [facility] Dec 15, 2024 11:00 AM AMBULATORY - NONE [place] Dec 15, 2024 02:30 PM AMBULATORY - MEDICINE ID [facility] Dec 29, 2024 11:00 AM AMBULATORY - NONE [place] Jan 05, 2025 11:00 AM AMBULATORY - NONE [place] Jan 12, 2025 11:00 AM AMBULATORY - NONE [place] Jan 19, 2025 11:00 AM AMBULATORY - NONE [place] Jan 20, 2025 01:00 PM AMBULATORY - MEDICINE [facility] Jan 26, 2025 11:00 AM AMBULATORY - NONE [place] Feb 02, 2025 11:00 AM AMBULATORY - NONE [place] Feb 07, 2025 12:00 PM AMBULATORY - NONE [facility] Feb 07, 2025 03:00 PM [facility] Feb 09, 2025 11:00 AM AMBULATORY - NONE [place] Feb 16, 2025 11:00 AM AMBULATORY - NONE [place] Feb 21, 2025 12:00 PM AMBULATORY - NONE [facility] Active, Pending, and Scheduled Orders This section includes a listing of several types of active, pending, and scheduled orders, including clinic medications orders, diagnostic test orders, procedure orders and consult orders; where thestart date of the order is 45 days before the date of the Encounter or 45 days after the date of the Encounter. The data comes from all ID treatment facilities. Test Date/Time Test Type Test Details Facility Name Oct 27, 2024 12:00 AM Laboratory - Chemistry Order MICROALBUMIN CREATININE RATIO PANEL URINE (RANDOM) SP [facility] Lab Results: +/- 30 days of the encounter This section includes the Chemistry and Hematology Lab Results on record with ID for the patient. Radiology Reports and Pathology Reports are provided separately, in subsequent sections. Lab Results This section contains the Chemistry/Hematology Results that were resulted 30 days before or 30 daysafter the date of the Encounter. Date/Time Source Result Type Result - Unit Interpretation Reference Range Specimen Type Comment Oct 27, 2024 02:50 PM [facility] HEMOGLOBIN A1C PANEL BLOOD Specimen Type: BLOOD Comment: Values obtained from A1C measurements can vary. For atypical A1C assays, a reported value of 7.0 could actually be between 6.72 and 7.28 if measured by a reference method. A reported value of 9.0 could actually be between 8.73 and 9.27. Ref: http://www.ngsp .org/CAPdata.as p Ordering Provider: ADIEL THOMPSON Report Released Date/Time: Oct 27, 2024 02:44 PM Reporting Lab: [address] [id number] Performing Lab: [address] [address] HEMOGLOBIN A1C 6.0 H 4.0-5.6 Oct 27, 2024 02:50 PM [facility] BASIC METABOLIC PANEL (non-fasting) SERUM Spe cimen Type: SERUM No comment entered. Ordering Provider: ADIEL THOMPSON Report Released Date/Time: Oct 27, 2024 02:44 PM Reporting Lab: [address] [address] Performing Lab: [address] [address] UREA NITROGEN 19 mg/dL 7-25 GLUCOSE 92 mg/dL 65-100 SODIUM 138 mmol/L 135-145 POTASSIUM 4.8 mmol/L 3.5-5.0 CHLORIDE 107 mmol/L 100-110 CO2 20 meq/L 20-30 CREATININE, Serum 0.84 mg/dL 0.50-1.40 eGFR(CKD-EPI 2020) >90 mL/min >60 Oct 27, 2024 02:50 PM [facility] CBC BLOOD Specimen Type: BLOOD No comment entered. Ordering Provider: ADIEL THOMPSON Report Released Date/Time: Oct 27, 2024 02:44 PM Reporting Lab: [address] [address] Performing Lab: [address] [address] WBC 6.22 10*3/uL 4.50-11.00 RBC 5.33 10*6/uL 4.23-5.66 HGB 16.2 g/dL 12.8-17 HCT 48.3 39.2-50.4 MCV 90.6 fL 82-99 MCHC 33.5 g/dL 30.8-35.1 PLT 252 10*3/uL 140-360 RDW-CV 13.6 12.0-16.0 MCH 30.4 pg 26.2-32.6 Vital Signs: All taken on the encounter date This section contains inpatient and outpatient Vital Signs collected on the date of the Encounter. Date/Time Temperature Pulse Blood Pressure Respiratory Rate SP02 Pain Height Weight Body Mass Index Source Oct 27, 2024 03:47 PM 233 [address] [place] Social History: Smoking Status (Most current) and Tobacco Use (All prior to encounter date) This section includes the most current, and the historical, smoking and tobacco- related health factors from the ID facility where the Encounter took place. Current Smoking Status This section includes the most current smoking, or tobacco-related health factor, from the ID facility where the Encounter took place. Date/Time Current Smoking Status Comment Otf ity May 27, 2022 09:30 AM VA-TOBACCO NEVER USED [place] Tobacco Use History This section includes a history of the smoking, or tobacco-related health factors, that were collected on or before the date of the Encounter. The data comes from the ID facility where the Encounter took place. Date/Time Smoking Status/Tobacco Use Comment F acility Jan 11, 2020 10:38 AM ID-TOBACCO NEVER USED [place] Jan 25, 2019 01:47 PM ID-TOBACCO NEVER USED [place] Feb 04, 2018 01:53 PM LIFETIME NON-TOBACCO USER [place] Feb 04, 2017 10:10 AM LIFETIME NON-TOBACCO USER [place] Jul 12, 2015 08:31 AM LIFETIME NON-TOBACCO USER [place] Advance Directives: All historical and current Section Date Range: From patient's date of to the date document was created. This section includes ALL of a patient's completed or amended ID Advance and Rescinded Directives. The entries below indicate that a directive exists for the patient, but an actual copy is not included with this document. The data comes from all ID facilities. Date Advance Directives Provider Source Aug 07, 2015 ADVANCE DIRECTIVE BEN BERNABE [facility] Encounter Notes: All associated encounter notes This section contains the clinical notes associated to the Encounter. Date/Time Encounter Note(s) Provider Source Oct 27, 2024 02:42 PM PHARMACY OUTPATIEN T NOTE: LOCAL TITLE: PHARMACY CLINIC NOTE STANDARD TITLE: PHARMACY OUTPATIENT NOTE DATE OF NOTE: OCT 27, 2024@14:42 ENTRY DATE: OCT 27, 2024@14:42:18 AUTHOR: ADIEL THOMPSON COSIGNER: URGENCY: STATUS: COMPLETED Patient Name: JUSTIN BARRAGAN was seen via [facility] for follow-up for diabetes management treatment. : Jul Age: 69 Sex: MALE Race: WHITE Subjective: Pt presents for a f/up. He states his ozempic dose has been increased by outside provider. He is doing well. Per prev: Pt went to ER in April the cause was overtreated the low BG. Pt brought paperwork from the visit. Pt satates he is doing well otherwise. Per prev: Pt comes to the appt stating he is likely to have gained some weight. He suspects it's due to patient eating larger portions sizes meals. He has no other complaints. Per prev: Pt reports hypoglycemia. Pt continues on ozempic and dexcom sensor. He is also followed by an outside pcp. Per prev: Pt lost reader for dexcom states he must of bend over and it slipped from the pocket. Pt has recently seen outside non-VA MD: Dr. Juan Jose Martinez MD [facility] Endocrinology on 10/21/24 A1C: 6.4% -repeated that day. Pt was trained on dexcom at the last visit w/ CPP> Per prev: Sees Dr. Reid from [facility] in October,. Pt states his BG levels are dropping but he is not loosing as much weight as he desires. Per prev: Pt presents to the visit w/ outside non-VA rx for semaglutide. [facility]. This group underwriter checked w/ community care pharmacist and pt does not have a current/active CC consult to endocrine. Informed the pt this rx cannot be filled at the va and explained the rationale. Pt wishes to proceed to obtain GLP-1 agent from the [facility] but does commment that he did not have [facility]. Per prev: Pt presents for carine upload and evaluation. Pt states he continues w/ the MOVE! program and he started to walk daily. Pt reports to be in good spirits. Per prev: Subjective: Pt presents for a f/up. He is doing well and brings his food journal. Pt contineus with the MOVE program and nutrition. Pt walks daily He was last seen on 02/25/23. Target Goals: A1C: 7%; FB-130 mg/dL; 2HRS PP <180mg/dL. Allergies: PENICILLIN, BEE STINGS PERTINENT INFORMATION: Active problems - Computerized Problem List is the source for the followin. Exposure to potentially hazardous substance 2. History of radial keratotomy 3. Health maintenance alteration 4. Sarcoidosis 5. Parapelvic renal cyst 6. Obesity 7. Osteoarthritis of knee 8. outside providers 9. Neoplasm of neck 10. Thyroid cancer 11. Schizophrenia 12. Diabetes mellitus 13. Hyperlipidemia 14. Constipation - Medication management Diabetes -- empagliflozin 25 mg daily - eGFR 86 ml/min 11/2023 -eGFR >90 ml/min on 04/2024 -- Metformin 1000 mg bid -Insulin glargine 10 units daily *when BG morning is >200 mg/dl pt injects 12 units --semaglutide 2 mg weekly - (Sundays) non-VA - INCREASED ~ 2MONTHS AGO Labs: HEMOGLOBIN A1C TREND Collection DT Spec HGBA1c 04/21/2024 13:35 BLOOD 6.2 H 12/10/2023 13:50 BLOOD 6.1 H 09/18/2023 14:30 BLOOD 6.0 H 02/26/2023 09:14 BLOOD 6.0 H 11/28/2022 08:23 BLOOD 7.4 H CBC TREND Collection DT Spec WBC RBC HGB HCT MCV MCH PLT 07/05/2024 13:24 BLOOD 6.07 4.77 14.8 44.1 92.5 31.0 242 12/10/2023 13:50 BLOOD 6.82 5.19 15.8 47.5 91.5 30.4 254 01/13/2020 07:11 BLOOD 5.39 4.24 13.4 40.2 94.8 31.6 205 01/27/2018 09:02 BLOOD 4.80 4.56 14.3 41.8 91.7 31.4 295 02/02/2017 09:24 BLOOD 6.57 5.03 15.5 46.2 91.8 30.8 270 CHEM 7 TREND LAB CUMULATIVE SELECTED Collection DT Spec GLUCOSE BUN CREATIN Sodium K+/Pot CL CO2 07/05/2024 13:24 SERUM 105 H 22 0.92 134 L 4.5 101 23 04/21/2024 13:35 SERUM 95 21 0.87 138 4.2 105 21 12/10/2023 13:50 SERUM 88 22 0.95 139 4.6 104 25 09/18/2023 14:30 SERUM 122 H 24 0.93 137 4.0 105 22 02/26/2023 09:14 SERUM 123 H 22 0.84 138 4.6 105 23 LAB CUMULATIVE SELECTED 2 No selection items chosen for this component. CHEM 7 Results Collection DT Spec Sodium K+/Pot CL CO2 GLUCOSE BUN 07/05/2024 13:24 SERUM 134 L 4.5 101 23 105 H 22 04/21/2024 13:35 SERUM 138 4.2 105 21 95 21 12/10/2023 13:50 SERUM 139 4.6 104 25 88 22 09/18/2023 14:30 SERUM 137 4.0 105 22 122 H 24 02/26/2023 09:14 SERUM 138 4.6 105 23 123 H 22 11/28/2022 08:22 SERUM 3.9 85 18 08/22/2022 08:14 SERUM 138 4.6 105 23 212 H 21 05/12/2022 11:32 SERUM 136 4.5 103 19 L 174 H 26 H 11/14/2021 09:01 SERUM 4.0 132 H 20 01/13/2020 07:11 SERUM 136 4.0 102 26 136 H 12 01/27/2019 09:17 SERUM 137 4.3 104 24 155 H 13 01/27/2018 09:02 SERUM 131 L 4.6 99 L 26 123 H 11 02/02/2017 09:24 SERUM 134 L 4.5 101 23 154 H 23 01/08/2016 08:28 SERUM 136 4.5 101 25 177 H 13 LIPID PANEL TREND Collection DT Spec CHOL HDL CHO/HDL LDL-c TRIG 12/10/2023 13:50 SERUM 151 53 2.8 61 187 H 11/28/2022 08:22 SERUM 130 53 2.5 60 83 11/14/2021 09:01 SERUM 127 49 2.6 59 95 01/13/2020 07:11 SERUM 103 45 2.3 45 64 01/27/2018 09:02 SERUM 120 54 2.2 49 87 THYROID PANEL Collection DT Specimen Test Name Result Units Ref Range 08/16/2024 14:05 SERUM TSH 0.98 uIU/mL 0.35 - 5.00 08/16/2024 14:05 SERUM THYROID TOTAL T4 7.92 ug/dL 4.5 - 12.0 01/13/2020 07:11 SERUM Free T4 SR-REF 1.41 ng/dL 0.6 - 1.6 VITAMIN D 25-OH Collection DT Specimen Test Name Result Units Ref Range 07/05/2024 13:24 SERUM VITAMIN D (25-OH) 27 ng/mL 20 - 50 SERUM Dec 10 Nov 28 Reference 2023 2022 13:50 08:22 Units Ranges CHOL 151 130 mg/dL <7 - 199 TRIG 187 H 83 mg/dL 0 - 150 HDL 53 53 mg/dL 40 - 60 LDL 61 60 mg/dL 0 - 129 CHO/HDL 2.8 2.5 Comments: kameron garcia SrCjax (last 6 weeks): CREATININE-EGFR - NONE FOUND CRCL IBW: CrCl(est): 88.6 mL/min (Creat:0.92 07/05/24) CRCL ACT: 100 mL/min CRCL ADJ: 88.6 mL/min (07/05/24) ---- GENERAL CHEMISTRY ---- SERUM Dec 10 Sep 18 Feb 26 Nov 28 Reference 2023 2022 2022 2022 13:50 14:30 09:14 08:22 Units Ranges AST 38 H 47 H U/L 5 - 34 ALT 37 34 U/L <6 - 55 Vitals: Weight (BMI): 238 lb [107.95 kg] (08/11/2024 11:30) Height: 71 in [180.3 cm] (06/03/2023 15:46) BMI: 33.3 Active and Recently Outpatient Medications (including Supplies): Active Outpatient Medications Status Active Outpatient Medications (including Supplies): ALBUTEROL 90MCG (CFC-F) 200D ORAL INHL INHALE 2 PUFFS BY ACTIVE MOUTH EVERY 4 HOURS NEEDED FOR ASTHMA ATTACK CARBOXYMETHYLCELLULOSE NA 0.5% OPH SOLN INSTILL 1 DROP ACTIVE INTO EACH EYE FOUR TIMES DAILY NEEDED FOR DRYNESS EMPAGLIFLOZIN 25MG TAB TAKE ONE TABLET BY MOUTH ONCE DAILY ACTIVE (S) FOR TYPE 2 DIABETES MELLITUS FLUTICAS 250/SALMETEROL 50 INHL DISK 60 INHALE 1 PUFF BY ACTIVE MOUTH TWICE DAILY GLUCOSE 4GM CHEW TAB CHEW FOUR TABLETS BY MOUTH NEEDED ACTIVE FOR LOW BLOOD SUGAR GLUCOSE SENSOR DEXCOM G7 USE 1 SENSOR DIRECTED EVERY 10 ACTIVE DAYS LANCET,SOFTCLIX USE 1 LANCET TOPICALLY TWICE DAILY TO TEST ACTIVE BLOOD SUGAR LEVOTHYROXINE NA (SYNTHROID) 150MCG TAB TAKE ONE TABLET BY ACTIVE MOUTH EVERY MORNING 30 MINUTES BEFORE BREAKFAST FOR THYROID - TAKE ON AN EMPTY STOMACH WITH A FULL GLASS OF WATER METFORMIN HCL 1000MG TAB TAKE ONE TABLET BY MOUTH TWICE ACTIVE (S) DAILY FOR DIABETES Non-VA ASCORBIC ACID 500MG TAB 1000MG BY MOUTH ONCE DAILY ACTIVE Non-VA BISACODYL 5MG EC TAB 5MG BY MOUTH TWICE DAILY ACTIVE Non-VA CHOLECALCIF 50MCG (D3-2,000UNIT) TAB 2000UNIT BY ACTIVE MOUTH DAILY Non-VA DOCUSATE NA 100MG CAP 100MG BY MOUTH TWICE DAILY ACTIVE Non-VA FENOFIBRATE 145MG TAB 145MG BY MOUTH ONCE DAILY ACTIVE Non-VA FLAXSEED CAP,ORAL BY MOUTH DAILY ACTIVE Non-VA LISINOPRIL 20MG TAB 20MG BY MOUTH ONCE DAILY ACTIVE Non-VA MULTIVITAMIN/MINERALS CAP/TAB 1 TABLET BY MOUTH AT ACTIVE BEDTIME Non-VA OLANZAPINE 15MG TAB 15MG BY MOUTH AT BEDTIME ACTIVE Non-VA POLYETHYLENE GLYCOL 3350 ORAL PWDR 17 GRAMS (1 ACTIVE CAPFUL) BY MOUTH AT BEDTIME Non-VA SIMVASTATIN 80MG TAB 40MG BY MOUTH AT BEDTIME ACTIVE MEDICATION RECONCILIATION: done BLOOD GLUCOSE MONITORING INFORMATION OBTAINED FROM [facility] SENSOR on 11/20/22: 7 DAY AVERAGE = 130 mg/dl 7 DAY TIME IN TARGET very high >250 0% high 181-250 9% target range 70-180 90% low 54-69 1% very low <54 0% TOTAL 7 DAY LOW GLUCOSE EVENTS = 1 SEE SEPARATE NOTE FOR UPLOAD OF SENSOR SENT TO SCANNING ====== 11/06/22: Fasting BG av mg/dl ; (n=8; range: 119- 201 mg/dl) Before dinner av mg/dl; (n= 4; range: 1123- 155 mg/dl) Bedtime: 119; (n=1) 11/20/22: Fasting BG av mg/dl; (n=8; range 102-262mg/dl) Before Lunch: av mg/dl ( n=4; range 129-158 mg/dl) Before dinner: avmg/dl; (n=9; range 102-167 mg/dl) ======= 10/17/22: Taken from carine pro: BLOOD GLUCOSE MONITORING 15 DAY AVERAGE = 254 15 DAY TIME IN TARGET very high >250 43% high 181-250 45% target range 70-180 12% low 54-69 0 % very low <54 0 % TOTAL 15 DAY LOW GLUCOSE EVENTS = 0 12/04/22 Fasting BG av mg/dl ; (n=6; range 106- 262mg/dl) Before lunch av mg/dl; (n=8; range 99-219mg/dl) Before dinner avmg/dl; (n=6; range 99-277mg/dl) Bedtime av mg/dl; (n=3; range: 119-146 mg/dl) Date: 12/25/22 Fasting BG av mg/dl ; (n=11; range 108-168mg/dl) Before lunch av mg/dl; (n=1) Before dinner avmg/dl; (n=11; range 93-235mg/dl) Bedtime av mg/dl; (n=1) Date: 02/25/23: Fasting BG av mg/dl; (n=6; range: 93-243mg/dl) Before lunch avmg/dl; (n=3; range: 104-129mg/dl) Before dinner avmg/dl; (n=15; range: 89-147mg/dl) Bedtime: 89mg/dl; n=1 Date: 03/25/23: Before lunch av mg/dl ; n=1 Before dinner av mg/dl; (n=10; range: 76-161 mg/dl) Bedtime avmg/dl; (n=6; range: 88-141 mg/dl) Date: 04/08/23: carine pro 15 DAY AVERAGE = 157 15 DAY TIME IN TARGET very high >250 5% high 181-250 26% target range 70-180 66% low 54-69 2% very low <54 1% TOTAL 15 DAY LOW GLUCOSE EVENTS = 5 A SEPERATE NOTE W/ UPLOAD IS AVAILABLE IN CPRS Date: 07/09/23: fasting BG avmg/dl; (n=3; range: 88-178mg/dl) Bedtime avmg/dl; (n=13; range: 78-175mg/dl) 10/16/23: fastin mg/dl; n=3; range: 101- 140 mg/dl; Bedtime av mg/dl; n=3; range: 115-170 mg/dl 11/19/23 fasting BG : 111 mg/dl; n=1 Before lunch B mg/dl Before dinner BG av mg/dl; n=2; range: 93-124 mg/dl Bedtime BG : 103 mg/dl date: 01/22/24 dexcom G7 14 day av mg/dl 0% VERY HIGH 5% HIGH 94% IN RANGE <1% LOW <1% VERY LOW date: 01/22/24: Fasting BG av; n=2; range: 111-143mg/dl Before dinner av mg/dl; n=2; range: 93-124mg/dl Bedtime : 103mg/dl; n=1 Date: 04/21/24 Dexcom G7: 14 day avg 155 mg/dl 2% VERY HIGH 17% HIGH 80% IN TARGET RANGE <1% LOW 0% VERY LOW SENSOR USAGE: 100% Date: 04/21/24 BG meter: fasting BG av mg/dl ; n=1 Before dinner avmg/dl; n=6; range: 91-163mg/dl Bedtime: 99 mg/dl ;n=1 Date: 08/17/24 Dexcom G7: 14 day avg 151 mg/dl 1% VERY HIGH 17% HIGH 82% IN TARGET RANGE <1% LOW 0% VERY LOW SENSOR USAGE: 100% Date: 10/27/24 Dexcom G7: 14 day avg 139 mg/dl 0% VERY HIGH 11% HIGH 89% IN TARGET RANGE 0% LOW 0% VERY LOW SENSOR USAGE: 100% NUTRITION: Diet Patterns: patient eats on avg.3 x/day: B: yogurt or cottage cheese and bannana L: mac and cheese w/ green beans and potatoes D: 3:30-4:30PM: pt cooks ; tacos, once in a while he takes out food i..e kittitian Snacks: cut down ; popcorn 4-5 carbs , hot chocolate, pretzels , mixed berries Drinks:4-5 bottles of water and coffee Exercise: walking : increased over last couple of days ~ 10K steps 2 miles/day HYPOGLYCEMIC Events: 0 in the last 2 weeks Hypoglycemia recognition & treatment reviewed: Yes EtOH/Illicit drugs: Alcohol: denies Tobacco: denies Other: - Denies personal or fhx thyroid cancer or MENS2 - Denies hx pancreatitis Personal Goals: - Get BG under control - Lose weightnies use Exercise: walking - just started almost daily w/ friend weight 09/18/23 => 239 lbs weight 10/16/23 => 241 lbs weight 11/19/23 => 252.6 lbs weight 01/22/24 => 238 lbs weight 04/20/24 => 238 lbs weight 07/2024 => 238 lbs weight 10/2024 => 233 lbs goal weight: 217 lbs ASSESSMENT/PLAN: Reviewed dexcom upload - pt's time in target remains >70%. Discussed the food journal and food options. Pt definitely eating too many carbohydrates / meals which is impacting his BG and weight. Reviewed that in details. Pt to repeat labs today. Recommend to further reduce the insulin glargine dose. Counseled not to vary the doses from day to day. f/up in July. Date: 08/17/24 Reviewed the BG from both sensor and BG meter. Pt was concerned about the discrepancy between the two - discussed in details. Time in target still at 82%. REcommned no changes. Pt is receiving ozempic from outside provider recommend to suggest to increase to max dose of 2 mg weekly to improve pp glycemia and trigger further weight loss. Reviewed nutrition. fup in October. Date: 10/27/24 Reviewed the sensor data - pt's time in target is >80%. Congratulated pt on this achievement. Reviewed nutrition pt continues to log the food journal. rEcommend to reduce the dose of insulin glargine. No other changes pt is loosing weight. f/up in November DIABETES A1c is below goal of <7% - Medication management Diabetes -- c/t empagliflozin 25 mg daily - eGFR 88 ml/min on 09/2023 -eGFR >90 ml/min on 04/2024 -- c/t Metformin 1000 mg bid -- REDUCE Insulin glargine 8 units daily hs -- c/t semaglutide 2 mg weekly - non-VA - Reviewed [facility] lab results - Monitor for s/sx hypoglycemia and contact clinic if BG consistently <70mg/dL - Healthy dietary and lifestyle modifications encouraged - increase water intake to 40-60 oz of water daily - Repeat A1c: today HTN: recent BP ; lisinopril ; MAT-I/ARB - defer to PCP ASCVD: ASA 325 mg/d daily ; fenofibrate ; flaxseed ; simvastatin Microalb: History of Preventive Care: 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 Clinic's Next Scheduled Follow-up: November 2024 No barriers; Patient understands and agrees to current treatment plan. If he has any questions, concerns, or changes in current health status he will call or come in to the [facility]. 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
--- OUTSIDE RECORDS SUMMARY | 2025-03-09 15:43 | XMS_ITS | Encounter Summary ---
Author Name [place] Address [address] [place] [address] Care Team Providers Care Strategy Analyst Name Role Phone HUNTER MARTINEZ Primary Care [...] Carmona's Name Patient's Relationship to Policy Carmona [facility] MEDICAID [facility] Nov 16, 2014 01 [id number] JARRETT BARRAGAN PATIENT MEDICARE (WNR) MEDICARE (M) PART B Jul 17, 2018 PART B [id number] LAUREL,JARRETT [place] PATIENT MEDICARE (WNR) MEDICARE (M) PART A Jul 17, 2018 PART A [id number] LAUREL,JARRETT MEJIASONY PATIENT MEDICARE (WNR) MEDICARE (M) PART A Jul 17, 2018 PART A [id number] [id number] JARRETT BARRAGAN PATIENT MEDICARE (WNR) MEDICARE (M) PART B Jul 17, 2018 PART B [id number] JARRETT BARRAGAN PATIENT Selected Encounter This section includes the information on record at [place] for the Encounter. Date/Time Encounter Type Encounter Description Reason Pro vider Source Jan 20, 2025 01:00 PM Outpatient Encounter [facility] IHE Encounter Template Text not used by [place] Plan of Treatment: Future Appointments (+ 6 months) and Future Tests (+/- 45 days) The Plan of Treatment section includes future care activities for the patient [facility] [place] [facility] This section includes future appointments and future orders which are active, pending or scheduled. Future Appointments This section includes appointments that were scheduled to occur 6 months from the date of the Encounter, up to a maximum of 20 appointments. The data comes from all [place] treatment facilities. Appointment Date/Time Appointment Type Appointme nt Facility Name Jan 26, 2025 11:00 AM [facility]ATORY - NONE [facility] Feb 02, 2025 11:00 AM AMBULATORY - NONE [facility] Feb 07, 2025 12:00 PM AM[facility]UL[facility]ORY [facility] NONE [facility] [place] [facility] Feb 07, 2025 03:00 PM [facility]ICINE [facility] Feb 09, 2025 11:00 AM AMBULATORY - NONE [facility] Feb 16, 2025 11:00 AM AMBULATORY - NONE [facility] Feb 21, 2025 12:00 PM AMBULATORY - NONE [facility] [place] [facility] Feb 23, 2025 11:00 AM AMBULATORY - NONE [facility] Mar 02, 2025 11:00 AM AMBULATORY - NONE [facility] Mar 07, 2025 12:00 PM AMBULATORY - NONE [facility] [place] [facility] Mar 09, 2025 11:00 AM AMBULATORY - NONE [facility] Mar 09, 2025 01:30 PM AMBULATORY - [place]ICINE [place] [facility] [place] [facility] April 04, 2025 02:00 PM [facility]ORY [facility] MEDICINE [facility] Jun 13, 2025 03:00 PM [facility]ORY - MEDICINE [facility] Jun 29, 2025 03:00 PM [place] [facility] Active, Pending, and Scheduled Orders This section includes a listing of several types of active, pending, and scheduled orders, including clinic medications orders, diagnostic test orders, procedure orders and consult orders; where the start date of the order is 45 days before the date of the Encounter or 45 days after the date of theEncounter. The data comes from all [place] treatment facilities. Test Date/Time Test Type Test Details Facility Name Feb 22, 2025 09:49 AM Consult Order COMMUNITY CARE-PULMONARY Cons Baggage Smasher's Choice [place] Advance Directives: All historical and current Section Date Range: From patient's date of to the date document was created. This section includes ALL of a patient's completed or amended [place] Advance and Rescinded Directives. The entries below indicate that a directive exists for the patient, but an actual copy is not included with this document. The data comes from all [place] facilities. Date Advance Directives Provider Source Aug 07, 2015 ADVANCE DIRECTIVE BEN BERNABE [facility] Encounter Notes: All associated encounter notes This section contains the clinical notes associated to the Encounter. Date/Time Encounter Note(s) Provider Source Jan 20, 2025 04:01 PM CLERICAL NOTE: LOCAL TITLE: APPOINTMENT NO SHOW STANDARD TITLE: CLERICAL NOTE DATE OF NOTE: JAN 20, 2025@16:01 ENTRY DATE: JAN 20, 2025@16:01:34 AUTHOR: ZACH MAR EXP COSIGNER: URGENCY: STATUS: COMPLETED Patient Name: JUSTIN BARRAGAN Patient SSN: [id number] Date and time of Appointment No show : 01/20/25 13:00 PATIENT PHONE - PHONE NUMBER [CELLULAR] - Patient's medical record was reviewed. Follow-up actions were determined and initiated: Please check/complete as applies: [X]Telephoned Directly [ ]Re-scheduled for next available appt [X]Sent a N0-show letter ( must call for appointment) [ ]Other (Emergent/Overbook, etc.): Additional Comments: Future Clinic Visits 02/07/2025 15:00 [facility] PODIATRY 1 04/04/2025 14:00 SPR PACT 1 SERVICE CENTER MANAGER 06/29/2025 15:00 SPR PHARM PACT 2 09/07/2025 08:00 [facility] 1 AM /damaris/ ZACH MAR TRAINING MANAGER Signed: 01/20/2025 16:01 ZACH MAR [facility] ([id number])
--- OUTSIDE RECORDS SUMMARY | 2025-03-09 15:43 | XMS_ITS | Encounter Summary ---
Author Name [place] Address [address] [place] [id number] Care Team Providers Care Hotel Or Motel Room Service Supervisor Name Role Phone HUNTER MARTINEZ Primary Care [...] Carmona's Name Patient's Relationship to Policy Carmona [facility] MEDICAID [facility] Nov 16, 2014 01 [id number] JARRETT BARRAGAN PATIENT MEDICARE (WNR) MEDICARE (M) PART A Jul 17, 2018 PART A [id number] LAUREL,JARRETT DE [place] PATIENT MEDICARE (WNR) MEDICARE (M) PART B Jul 17, 2018 PART B [id number] LAUREL,JARRETT MEJIASONY PATIENT MEDICARE (WNR) MEDICARE (M) PART A Jul 17, 2018 PART A [id number] JARRETT BARRAGAN PATIENT MEDICARE (WNR) MEDICARE (M) PART B Jul 17, 2018 PART B [id number] [phone] JARRETT BARRAGAN PATIENT Selected Encounter This section includes the information on record at [place] for the Encounter. Date/Time Encounter Type Encounter Description Reason Pro vider Source Feb 21, 2025 04:25 PM Outpatient Encounter COMMUNITY CARE CONSULT IHE Encounter Template Text not used by [place] Plan of Treatment: Future Appointments (+ 6 months) and Future Tests (+/- 45 days) The Plan of Treatment section includes future care activities for the patient from all [place] treatmentfacilities. This section includes future appointments and future orders which are active, pending or scheduled. Future Appointments This section includes appointments that were scheduled to occur 6 months from the date of the Encounter, up to a maximum of 20 appointments. The data comes from all [place] treatment [facility]. Appointment Date/Time Appointment Type Appointme nt Facility Name Feb 23, 2025 11:00 AM [facility] Mar 02, 2025 11:00 AM [facility] Mar 07, 2025 12:00 PM [facility] Mar 09, 2025 11:00 AM [facility] Mar 09, 2025 01:30 PM [place]UL[place]ORY [place] [facility] [place] [facility] April 04, 2025 02:00 PM AMBULATORY - MEDICINE [facility] Jun 13, 2025 03:00 PM AMBULATORY - MEDICINE [facility]NOTE 3[facility]I [facility] Jun 29, 2025 03:00 PM AMBULATORY - MEDICINE [facility] Active, Pending, and Scheduled Orders This section includes a listing of several types of active, pending, and scheduled orders, including clinic medications orders, diagnostic test orders, procedure orders and consult orders; where the start date of the order is 45 days before the date of the Encounter or 45 days after the date of theEncounter. The data comes from all [facility]. Test Date/Time Test Type Test Details Facility Name Feb 22, 2025 09:49 AM Consult Order COMMUNITY CARE-PULMONARY Cons Community Health Navigator's Bruce LINCOLN Social History: Smoking Status (Most current) and Tobacco Use (All prior to encounter date) This section includes the most current, and the historical, smoking and tobacco- related health factors from the [place] facility where the Encounter took place. Current Smoking Status This section includes the most current smoking, or tobacco-related health factor, from the [place] facility where the Encounter took place. Date/Time Current Smoking Status Comment Otf hamm Dec 10, 2023 01:11 PM VA-TOBACCO NEVER USED [place] [facility] [place] [facility] Advance Directives: All historical and current Section Date Range: From patient's date of to the date document was created. This section includes ALL of a patient's completed or amended [place] Advance and Rescinded Directives. The entries below indicate that a directive exists for the patient, but an actual copy is not included with this document. The data comes from all [place] facilities. Date Advance Directives Provider Source Aug 07, 2015 ADVANCE DIRECTIVE BEN BERNABE [facility] Encounter Notes: All associated encounter notes This section contains the clinical notes associated to the Encounter. Date/Time Encounter Note(s) Provider Source Feb 21, 2025 04:25 PM NONVA NOTE: LOCAL TITLE: COMMUNITY CARE-REQUEST FOR SERVICE NOTE STANDARD TITLE: NONVA NOTE DATE OF NOTE: FEB 21, 2025@16:25 ENTRY DATE: FEB 21, 2025@16:25:21 AUTHOR: MARYSE BARBOSA COSIGNER: URGENCY: STATUS: COMPLETED COMMUNITY CARE-REQUEST FOR SERVICE NOTE Has ADDENDA Request for Services (RFS) documentation has been sent for scanning to [facility] Community Care Consult: COMMUNITY CARE-Pulmonary [facility] [address] [place] [address] [place] [address] Chronic Obstructive Pulmonary Disease, unspecified(ICD-10-CM J44.9) appt 03/09/2025 @ 1330 Alert to PACT to enter a cc pulm consult if in agreement /daamris/ MARYSE BARBOSA Community Care RN Signed: 02/21/2025 16:29 Receipt Acknowledged By: 02/22/2025 09:43 /damaris/ TYLOR EVANS REGISTERED NURSE 02/22/2025 ADDENDUM STATUS: COMPLETED Continuation of care consult placed, held for provider's review and signature if appropriate. /lindsay EVANS REGISTERED NURSE Signed: 02/22/2025 09:44 MARYSE BARBOSA [place] [facility] [place] [facility]
--- OUTSIDE RECORDS SUMMARY | 2025-03-09 15:43 | XMS_ITS | Encounter Summary ---
Author Name [place] Organization [place] Address [address] [place] [address] Care Team Providers Care Fieldwork Coordinator Name Role Phone HUNTER MARTINEZ Primary Care [...] [place] [facility] Nov 16, 2014 01 [id number] LAUREL,JARRETT MEJIASONY PATIENT MEDICARE (WNR) MEDICARE (M) PART B Jul 17, 2018 PART B [id number] LAUREL,AN WIL PATIENT MEDICARE (WNR) MEDICARE (M) PART A Jul 17, 2018 PART A [id number] LAUREL,AN WIL PATIENT MEDICARE (WNR) MEDICARE (M) PART A Jul 17, 2018 PART A [id number] LAUREL,AN WIL PATIENT MEDICARE (WNR) MEDICARE (M) PART B Jul 17, 2018 PART B [id number] LAUREL,JARRETT DE [place] PATIENT Selected Encounter This section includes the information on record at [place] for the Encounter. Date/Time Encounter Type Encounter Description Reason Provider Source Aug 17, 2024 03:00 PM MTMS BY PHARM RAFA 15 MIN CLINICAL PHARMACY ICD-10-CM E11.65 Type 2 diabetes mellitus with hyperglycemia KRISTEL THOMPSON [facility] Encounter Template Text not used by [place] Assessments - Encounter Diagnoses This section includes the primary and secondary diagnoses documented for the Encounter. Date/Time Primary/Secondary Diagnosis Diagnosis Name Provider Source Aug 17, 2024 03:33 PM PRIMARY Type 2 diabetes mellitus with hyperglycemia RITO THOMPSON [place] Plan of Treatment: Future Appointments (+ 6 months) and Future Tests (+/- 45 days) The Plan of Treatment section includes future care activities for the patient from all [place] [facility] This section includes future appointments and future orders which are active, pending or scheduled. Future Appointments This section includes appointments that were scheduled to occur 6 months from the date of the Encounter, up to a maximum of 20 appointments. The data comes from all [place] treatment facilities. Appointment Date/Time Appointment Type Appointme nt Facility Name Aug 18, 2024 11:00 AM AMBULATORY - NONE [facility] Aug 23, 2024 12:00 PM AMBULATORY - NONE [facility] [place] [facility] Aug 25, 2024 11:00 AM AMBULATORY - NONE [facility] [facility] Aug 30, 2024 03:00 PM AMBULATORY - REHAB MEDICIN E [facility] [place] [facility] Sep 01, 2024 11:00 AM AMBULATORY - NONE [facility] Sep 05, 2024 08:30 AM AMBULATORY - MEDICINE [facility] [place] [facility] Sep 06, 2024 12:00 PM AMBULATORY - NONE [facility] [place] [facility] Sep 08, 2024 11:00 AM AMBULATORY - NONE [facility] Sep 15, 2024 11:00 AM AMBULATORY - NONE [facility] Sep 22, 2024 11:00 AM AMBULATORY - NONE [facility] Sep 27, 2024 12:00 PM AMBULATORY - NONE [facility] [place] [facility] Sep 28, 2024 04:00 PM AMBULATORY - REHAB MEDICIN E [facility] [place] [facility] Oct 04, 2024 03:00 PM AMBULATORY [facility] MED[facility] Oct 06, 2024 11:00 AM AMBULATORY - NONE [facility] Oct 11, 2024 12:00 PM AMBULATORY - NONE [facility] [place] [facility] Oct 20, 2024 11:00 AM AMBULATORY - NONE [facility] [facility] Oct 25, 2024 12:00 PM AMBULATORY - NONE [facility] [place] [facility] Oct 27, 2024 11:00 AM AMBULATORY - NONE [facility] [facility] Oct 27, 2024 02:30 PM AMBULATORY - MEDICINE [place] [facility] [place] [facility] Nov 03, 2024 09:00 AM AMBULATORY - MEDICINE [place] [facility] Lab Results: +/- 30 days of the encounter This section includes the Chemistry and Hematology Lab Results on record with [place] for the patient. Radiology Reports and Pathology Reports are provided separately, in subsequent sections. Lab Results This section contains the Chemistry/Hematology Results that were resulted 30 days before or 30 daysafter the date of the Encounter. Date/Time Source Result Type Result - Unit Interpretation Reference Range Specimen Type Comment Aug 16, 2024 02:05 PM [facility] T3, FREE (QU) SERUM Specimen Type: SERUM Comment: Test Performed by [facility], [facility], [address] [place] [address] Benjamin Ortiz M.D., Ph.D., Director of Laboratories , [facility] [id number] TEST PERFORMED AT: , Ordering Provider: ESTEFANI QUESADA Report Released Date/Time: Aug 16, 2024 06:36 AM Reporting Lab: [facility] [address] [facility] [address] Performing Lab: [facility] [place] [facility] [address] [address] T3, FREE (QU) 2.3 pg/mL 2.3-4.2 Aug 16, 2024 02:05 PM [facility] THYROID TOTAL T4 SERUM Specimen Type: SERUM No comment entered. Ordering Provider: ESTEFANI QUESADA Report Released Date/Time: Aug 16, 2024 06:36 AM Reporting Lab: [facility] [address] [facility] [address] Performing Lab: [facility] [address] [facility] [address] THYROID TOTAL T4 7.92 ug/dL 4.5-12.0 Aug 16, 2024 02:05 PM [facility] TSH SERUM Specimen Type: SERUM No comment entered. Ordering Provider: ESTEFANI QUESADA Report Released Date/Time: Aug 16, 2024 06:36 AM Reporting Lab: [facility] [place] [facility] [address] [facility] [address] Performing Lab: [facility] [address] [facility] [address] TSH 0.98 u[IU]/mL 0.35-5.00 Social History: Smoking Status (Most current) and Tobacco Use (All prior to encounter date) This section includes the most current, and the historical, smoking and tobacco- related health factors from the [place] facility where the Encounter took place. Current Smoking Status This section includes the most current smoking, or tobacco-related health factor, from the [place] facility where the Encounter took place. Date/Time Current Smoking Status Comment Facil ity May 27, 2022 09:30 [facility] [place] Tobacco Use History This section includes a history of the smoking, or tobacco-related health factors, that were collected on or before the date of the Encounter. The data comes from the [place] facility where the Encounter took place. Date/Time Smoking Status/Tobacco Use Comment F acility Jan 11, 2020 10:38 AM [place]-TOBACCO NEVER USED [place] Jan 25, 2019 01:47 PM LA-TOBACCO NEVER USED [place] Feb 04, 2018 01:53 PM LIFETIME NON-TOBACCO USER [place] Feb 04, 2017 10:10 AM LIFETIME NON-TOBACCO USER [place] Jul 12, 2015 08:31 AM LIFETIME NON-TOBACCO USER [place] Advance Directives: All historical and current Section Date Range: From patient's date of to the date document was created. This section includes ALL of a patient's completed or amended [place] Advance and Rescinded Directives. The entries below indicate that a directive exists for the patient, but an actual copy is not included with this document. The data comes from all [place] facilities. Date Advance Directives Provider Source Aug 07, 2015 ADVANCE DIRECTIVE BEN BERNABE [facility] Encounter Notes: All associated encounter notes This section contains the clinical notes associated to the Encounter. Date/Time Encounter Note(s) Provider Source Aug 17, 2024 03:07 PM PHARMACY OUTPATIEN T NOTE: LOCAL TITLE: PHARMACY CLINIC NOTE STANDARD TITLE: PHARMACY OUTPATIENT NOTE DATE OF NOTE: AUG 17, 2024@15:07 ENTRY DATE: AUG 17, 2024@15:07:13 AUTHOR: ADIEL THOMPSON COSIGNER: URGENCY: STATUS: COMPLETED Patient Name: JUSTIN BARRAGAN was seen via for follow-up for diabetes management treatment. : Jul Age: 69 Sex: MALE Race: WHITE Subjective: Pt went to ER in April the [...] non-VA MD: Dr. Juan Jose Martinez MD [facility] Endocrinology on 10/21/24 A1C: 6.4% -repeated that day. Pt was trained on dexcom at the last visit w/ CPP> Per prev: Sees Dr. Reid from [facility] in October,. Pt states his BG levels are dropping but he is not loosing as much weight as he desires. Per prev: Pt presents to the visit w/ outside non-VA rx for semaglutide. [facility]. This senior technical writer checked w/ community care pharmacist and pt does not have a current/active CC consult to endocrine. Informed the pt this rx cannot be filled at the va and explained the rationale. Pt wishes to proceed to obtain GLP-1 agent from the [facility] but does commment that he did not have to pay copay for this rx in [facility]. Per prev: Pt presents for carine upload [...] -- Metformin 1000 mg bid -Insulin glargine 8-10 units daily *when BG morning is >200 mg/dl pt injects 12 units --semaglutide 1 mg weekly - (Sundays) non-VA Labs: HEMOGLOBIN A1C TREND Collection DT Spec [...] (25-OH) 27 ng/mL 20 - 50 SERUM [place] Nov 28 Reference 2023 2022 13:50 08:22 Units Ranges CHOL 151 130 mg/dL <7 - 199 TRIG 187 H 83 mg/dL 0 - 150 HDL 53 53 mg/dL 40 - 60 LDL 61 60 mg/dL 0 - 129 CHO/HDL 2.8 2.5 Comments: kameron garcia SrCr (last 6 weeks): CREATININE-EGFR - NONE FOUND [...] range 102-167 mg/dl) ======= 10/17/22: Taken from [employer]: BLOOD GLUCOSE MONITORING 15 DAY AVERAGE = [...] a while he takes out food i..e [employer] Snacks: cut down ; popcorn 4-5 carbs [...] 238 lbs weight 07/2024 => 238 lbs goal weight: 217 lbs ASSESSMENT/PLAN: Reviewed [...] weight loss. Reviewed nutrition. fup in October. 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 Clinic's Next Scheduled Follow-up: October, No barriers; Patient understands and agrees to current treatment plan. If he has any questions, concerns, or changes in current health status he will call or come in to the [facility]. FUTURE APPOINTMENTS: 08/30/2024 15:00 [facility] NO AUDIO EVAL D 09/05/2024 08:30 C[facility]/NO/OPTOMETRY/MERHAR 10/04/2024 15:00 C[facility]/SO/PODIATRY/ROSS 12/06/2024 13:30 CWM/SO/PACT 1 BANK EXAMINER DM type is : t2d Length of Visit: 30 minutes PBM PharmD Pharmacotherapy Rem V12: PHARMACIST INTERVENTIONS: TYPE 2 DIABETES MELLITUS Medication monitoring, no dosage change required, continue to monitor and assess /damaris/ ADIEL THOMPSON [facility] NURSE Signed: 08/17/2024 15:51 Receipt Acknowledged By: 08/22/2024 12:19 /damaris/ HUNTER MARTINEZ NP NURSE PRACTITIONER ADIEL THOMPSONFIELD
--- OUTSIDE RECORDS SUMMARY | 2025-03-09 15:43 | XMS_ITS | Encounter Summary ---
Author Name [facility] Organization [facility] Address [address] [place] [id number] Care Team Providers Care Stereo Equipment Installer Name Role Phone HUNTER MARTINEZ Primary Care [...] [place] H Nov 16, 2014 01 [phone] [id number] JARRETT BARRAGAN PATIENT MEDICARE (WNR) MEDICARE (M) PART A Jul 17, 2018 PART A [id number] LAUREL,JARRETT MEJIASONY PATIENT MEDICARE (WNR) MEDICARE (M) PART B Jul 17, 2018 PART B [id number] LAUREL,JARRETT MEJIASONY PATIENT MEDICARE (WNR) MEDICARE (M) PART A Jul 17, 2018 PART A [id number] [phone] LAUREL,JARRETT MEJIASONY PATIENT MEDICARE (WNR) MEDICARE (M) PART B Jul 17, 2018 PART B [id number] LAUREL,JARRETT [place] PATIENT Selected Encounter This section includes the information on record at [place] for the Encounter. Date/Time Encounter Type Encounter Description Reason Provider Source Dec 06, 2024 01:30 PM OFFICE O/P EST MOD 30 MIN PRIMARY CARE/MEDICINE ICD-10-CM E11.65 Type 2 diabetes mellitus with hyperglycemia HUNTER MARTINEZ [place] Encounter Template Text not used by [place] Assessments - Encounter Diagnoses This section includes the primary and secondary diagnoses documented for the Encounter. Date/Time Primary/Secondary Diagnosis Diagnosis Name Provider Source Dec 06, 2024 01:46 PM PRIMARY Type 2 diabetes mellitus with hyperglycemia HUNTER MARTINEZ Dec 06, 2024 01:46 PM SECONDARY Hyperlipidemia, unspecified HUNTER MARTINEZ Dec 06, 2024 01:46 PM SECONDARY Schizophrenia, unspecified HUNTER MARTINEZ Plan of Treatment: Future Appointments (+ 6 months) and Future Tests (+/- 45 days) The Plan of Treatment section includes future care activities for the patient from all [place] treatmentfacilities. This section includes future appointments and future orders which are active, pending or scheduled. Future Appointments This section includes appointments that were scheduled to occur 6 months from the date of the Encounter, up to a maximum of 20 appointments. The data comes from all [place] treatment facilities. Appointment Date/Time Appointment Type Appointme nt Facility Name Dec 08, 2024 11:00 AM AMBULATORY - NONE [facility] Dec 13, 2024 12:00 PM AMBULATORY - NONE [facility] [place] [facility] Dec 15, 2024 11:00 AM AMBULATORY - NONE [place] Dec 15, 2024 02:30 PM AMBULATORY - MEDICINE [facility] [place] [facility] Dec 29, 2024 11:00 AM AMBULATORY - NONE [facility] Jan 05, 2025 11:00 AM AMBULATORY - NONE [facility] [facility] Jan 12, 2025 11:00 AM AMBULATORY - NONE [facility] [facility] Jan 19, 2025 11:00 AM AMBULATORY - NONE [facility] [facility] Jan 20, 2025 01:00 PM AMBULATORY - MEDICINE [facility] [place] [facility] Jan 26, 2025 11:00 AM AMBULATORY - NONE [facility] [facility] Feb 02, 2025 11:00 AM AMBULATORY - NONE [facility] [facility] Feb 07, 2025 12:00 PM AMBULATORY - NONE [facility] [place] [facility] Feb 07, 2025 03:00 PM [facility]ORY - [facility]INE [facility] Feb 09, 2025 11:00 AM AMBULATORY - NONE [facility] Feb 16, 2025 11:00 AM AMBULATORY - NONE [facility] [facility] Feb 21, 2025 12:00 PM AMBULATORY - NONE [facility] [place] [facility] Feb 23, 2025 11:00 AM AMBULATORY - NONE [facility] [facility] Mar 02, 2025 11:00 AM AMBULATORY - NONE [facility] [facility] Mar 07, 2025 12:00 PM AMBULATORY - NONE [facility] [place] [facility] Mar 09, 2025 11:00 AM AMBULATORY - NONE [facility] [facility] Active, Pending, and Scheduled Orders This section includes a listing of several types of active, pending, and scheduled orders, including clinic medications orders, diagnostic test orders, procedure orders and consult orders; where the start date of the order is 45 days before the date of the Encounter or 45 days after the date of theEncounter. The data comes from all [place] treatment facilities. Test Date/Time Test Type Test Details Facility Name Oct 27, 2024 12:00 AM Laboratory - Chemistry Order MICROALBUMIN CREATININE RATIO PANEL URINE (RANDOM) SP [facility] Lab Results: +/- 30 days of the encounter This section includes the Chemistry and Hematology Lab Results on record with [place] for the patient. Radiology Reports and Pathology Reports are provided separately, in subsequent sections. Lab Results This section contains the Chemistry/Hematology Results that were resulted 30 days before or 30 daysafter the date of the Encounter. Date/Time Source Result Type Result - Unit Interpretation Reference Range Specimen Type Comment Dec 06, 2024 01:41 PM [facility] LIPID PANEL, NON FASTING SERUM Specim en Type: SERUM No comment entered. Ordering Provider: HUNTER MARTINEZ Report Released Date/Time: Dec 06, 2024 01:15 PM Reporting Lab: [address] [address] Performing Lab: [address] [address] CHOLESTEROL 144 mg/dL TRIGLYCERIDE 293 mg/dL H 0-150 LDL calculated 45 mg/dL 0-129 CHOL/HDL 3.6 HDL CHOLESTEROL 40 mg/dL 40-60 Dec 06, 2024 01:41 PM [facility] LIVER FUNCTION SERUM Specimen Type: SERUM No comment entered. Ordering Provider: HUNTER MARTINEZ Report Released Date/Time: Dec 06, 2024 01:15 PM Reporting Lab: [facility] [address] [facility] [address] Performing Lab: [facility] [address] [facility] [address] PROTEIN,TOTAL 7.3 g/dL 6.0-8.3 ALBUMIN 4.1 g/dL 3.5-5.0 ALKALINE PHOSPHATASE 45 U/L 40-150 AST 24 U/L 5-34 ALT 24 U/L BILIRUBIN, TOTAL 0.3 mg/dL 0.2-1.2 Vital Signs: All taken on the encounter date This section contains inpatient and outpatient Vital Signs collected on the date of the Encounter. Date/Time Temperature Pulse Blood Pressure Respiratory Rate SP02 Pain Height Weight Body Mass Index Source Dec 06, 2024 01:39 PM 97.9 121/80 99 247 35 [place] Social History: Smoking Status (Most current) and Tobacco Use (All prior to encounter date) This section includes the most current, and the historical, smoking and tobacco- related health factors from the [place] facility where the Encounter took place. Current Smoking Status This section includes the most current smoking, or tobacco-related health factor, from the [place] facility where the Encounter took place. Date/Time Current Smoking Status Comment Otf hamm May 27, 2022 09:30 AM PA-TOBACCO NEVER USED [facility] Tobacco Use History This section includes a history of the smoking, or tobacco-related health factors, that were collected on or before the date of the Encounter. The data comes from the [place] facility where the Encounter took place. Date/Time Smoking Status/Tobacco Use Comment F acility Jan 11, 2020 10:38 AM PA-TOBACCO NEVER USED [facility] Jan 25, 2019 01:47 PM PA-TOBACCO NEVER USED [facility] Feb 04, 2018 01:53 PM LIFETIME NON-TOBACCO USER [facility] Feb 04, 2017 10:10 AM LIFETIME NON-TOBACCO USER [facility] Jul 12, 2015 08:31 AM LIFETIME NON-TOBACCO USER [facility] Advance Directives: All historical and current Section Date Range: From patient's date of to the date document was created. This section includes ALL of a patient's completed or amended [place] Advance and Rescinded Directives. The entries below indicate that a directive exists for the patient, but an actual copy is not included with this document. The data comes from all [place] facilities. Date Advance Directives Provider Source Aug 07, 2015 ADVANCE DIRECTIVE FLORECITABENDYLAN VASQUEZ NATE SEVERINO Encounter Notes: All associated encounter notes This section contains the clinical notes associated to the Encounter. Date/Time Encounter Note(s) Provider Source Dec 06, 2024 01:09 PM PRIMARY CARE NURSE PRACTITIONER OUTPATIENT NOTE: LOCAL TITLE: NURSE PRACTITIONER OUTPATIENT NOTE STANDARD TITLE: PRIMARY CARE NURSE PRACTITIONER OUTPATIENT NOTE DATE OF NOTE: DEC 06, 2024@13:09 ENTRY DATE: DEC 06, 2024@13:09:55 AUTHOR: HUNTER MARTINEZ COSIGNER: URGENCY: STATUS: COMPLETED PRIMARY CARE VISIT JUSTIN ABRRAGAN, is a 69 yo WHITE MALE [place] who [facility] the [facility]. TYPE OF VISIT: Face to face 68-year-old male with sarcoid, schizophrenia, obesity, HLD, type 2 diabetes, and a history of thyroid cancer status post excision 2003 presented to the outpatient clinic in regular follow-up. He is comanaged with a community PCP. He has been attending weight loss exercise group, move program with some success. No concerns today. No recent illnesses. No falls. Recent labs and diagnostic studies were reviewed with the . All medications were reconciled during this visit. HEALTHCARE PROVIDERS: Community PCP: Dr. Castillo CPP: Dr. Neumann MH: [facility] clinician. Social Hx: The lives alone in senior housing in [place]. No nicotine, alcohol, MJ. Exercises daily by walking. 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 12/02/2022 LESLEYLYNDONTRAVON S Obesity E66.8 01/15/2016 NEIL ROGERS Osteoarthritis of knee M17.0 12/02/2022 SUTTONLYNDON WUJARRETT Raya outside providers 799.9 07/12/2015 NEIL ROGERS Neoplasm of neck C76.0 12/02/2022 LESLEYTRAVON Raya Thyroid cancer D09.3 02/17/2019 NEIL ROGERS Schizophrenia F20.9 12/02/2022 LESLEYTRAVON Raya Diabetes mellitus E11.65 01/15/2016 NEIL ROGERS Hyperlipidemia E78.5 01/15/2016 KENNE[place] Constipation K59.00 12/02/2022 SUTTONTRAVON Raya VITAL SIGNS: Temperature 97.1 F [36.2 C] (12/10/2023 13:03) Blood Pressure 99/72 (12/10/2023 13:03) Pulse 91 (12/10/2023 13:03) Respiration 19 (06/03/2023 15:46) Pain 0 (06/03/2023 15:46) BMI BMI: 32.6 Weight 233 lb [105.69 kg] (11/03/2024 11:16) Pulse Oximetry 98% (12/10/2023 13:03) ASSISTIVE DEVICES: None REVIEW OF SYSTEMS: CONSTITUTIONAL: No fevers, chills, weight loss/gain ENT: No sore throat, sneezing, congestion, rhinorrhea, anosmia, or ageusia. CARDIOVASCULAR: No chest pain, palpitations, or increased pedal edema RESPIRATORY: No SOB, cough, sputum, wheeze. GASTROINTESTINAL: Denies abd pain, N/V/D. No melena or hematochezia. No tenesmus or constipation. GENITOURINARY: No burning micturition. No urinary frequency or urgency. No nocturia. MUSCULOSKELETAL: No myalgias or arthralgias. PSYCHIATRIC: No new anxiety or depression. No sleep disturbance. NEUROLOGIC: No headaches, dizziness, numbness or tingling in the extremities, or unilateral weakness. EXAMINATION General: Well-appearing [place] in no obvious distress. Mental Status: Alert and oriented x4. Head: Normocephalic. Eyes: PERRLA. EOMI. Anicteric sclerae. ENT: Moist oral mucosa. Posterior pharynx unremarkable Neck: Supple. No JVD. No LAD. No bruit. Lungs: CTA. Normal chest excursion. Eupneic respirations. CV: Heart tones S1, S2. RRR. No M/G/R. No HSM or edema GI: Abdomen is soft and nontender. No palpable mass. : No CVA tenderness. Ext: No cyanosis or clubbing. No gross deformities. Neuro: CN II through XII grossly intact. Normal speech. Normal gait. Integument: Skin warm and dry. No concerning lesions or rashes. Psych: Normal mood and affect. Normal judgment. ALLERGIES: ========= PENICILLIN, BEE STINGS >> HEALTH MAINTENANCE PREVENTIVE MEDICINE GOALS Info Only: [facility] Video Connect Capable DUE NOW MH AIMS Testing DUE NOW Advance Directive Screen MH AD Dec 10 Suicide Screen Dec 01 Follow Up Colonoscopy Feb 04 Depression Screening Dec 10 PTSD Screening Jan 11 Influenza Immunization DUE NOW Medication Reconciliation DUE NOW Alcohol Use Screen (AUDIT-C) Dec 10 COVID-19 Immunization DUE NOW RSV Immunization DUE NOW Sexual Orientation Dec 10 RHS Screen DUE NOW (Optional) Whole Health Documentation DUE NOW ASSESSMENT/PLAN: Active problems - Computerized Problem List is the source for the following: Obesity: BMI 32.8. Continues to participate in the move program Thyroid cancer: Now with secondary hypothyroidism. Maintained on levothyroxine 150 mcg daily. TSH normal. Schizophrenia: He follows with [facility] clinician for medical management. Diabetes mellitus: HbA1c 6%. Maintained on empagliflozin and metformin. Follows a diabetic diet. Encouraged to continue. Hyperlipidemia: Check lipid panel. Continue rosuvastatin. FOLLOW UP: RTC Below & sooner PRN UPCOMING APPOINTMENTS: 12/06/2024 13:30 CWM/SO/PACT 1 CIVIL RIGHTS ATTORNEY 12/15/2024 14:30 [facility] PACT 2 02/07/2025 15:00 CWM/SO/PODIATRY/ROSS 09/07/2025 08:00 CWM/NO/OPTOMETRY 1 AM 30 minutes spent in patient evaluation, data review, and patient education. All medications were reconciled during this visit. No barriers; Patient understands and agrees to current treatment plan. If pt has any questions, concerns, or changes in current health status he/she will call or come in to the [facility]. Sexual Orientation: The patient thinks of their sexual orientation as: Straight or Heterosexual Alcohol Use Screen (AUDIT-C): Alcohol Screen: SCREEN FOR ALCOHOL (AUDIT-C) An alcohol screening test (AUDIT-C) was negative (score=0). 1. How often did you have a drink containing alcohol in the past year? Consider a drink to be a 12 ounce can or bottle of regular beer, 8 ounces of malt liquor, a 5 ounce glass of table wine, or a 1.5 ounce shot of liquor (like scotch, gin, or vodka). Never 2. How many drinks containing alcohol did you have on a typical day when you were drinking in the past year? Response not required due to responses to other questions. 3. How often did you have six or more drinks on one occasion in the past year? Response not required due to responses to other questions. Medication Reconciliation: Outpatient: Has the patient been taking medications as documented in the EMLR? YES: The patient has been taking medications as documented in the EMLR. Essential Medication List for Review used to complete this medication reconciliation. INCLUDED IN THIS LIST: Alphabetical list of active outpatient prescriptions dispensed from this [facility] (local) and dispensed from another VA or [facility] facility (remote) as well as [...] whether with a VA or non-VA provider. Follow Up Colonoscopy: Colonoscopy is due based on information available to this reminder. Colonoscopy consult has been ordered. See orders tab for details. /es/ HUNTER MARTINEZ NP NURSE PRACTITIONER Signed: 12/06/2024 13:45 HUNTER MARTINEZ [facility]
--- OUTSIDE RECORDS SUMMARY | 2025-03-09 15:44 | XMS_ITS | Encounter Summary ---
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 Name Role Phone HUNTER MARTINEZ Primary Care [...] [place] H Nov 16, 2014 01 [id number] LAUREL,JARRETT MEJIASONY PATIENT MEDICARE (WNR) MEDICARE (M) PART A Jul 17, 2018 PART A [id number] LAUREL,AN WIL PATIENT MEDICARE (WNR) MEDICARE (M) PART B Jul 17, 2018 PART B [id number] LAUREL,AN WIL PATIENT MEDICARE (WNR) MEDICARE (M) PART A Jul 17, 2018 PART A [id number] LAUREL,AN WIL PATIENT MEDICARE (WNR) MEDICARE (M) PART B Jul 17, 2018 PART B [id number] LAUREL,JARRETT DE [place] PATIENT Selected Encounter This section includes the information on record at [place] for the Encounter. Date/Time Encounter Type Encounter Description Reason Provider Source Dec 15, 2024 02:30 PM MTMS BY PHARM ADDL 15 MIN CLINICAL PHARMACY ICD-10-CM E11.65 Type 2 diabetes mellitus with hyperglycemia KRISTEL THOMPSON [facility] Encounter Template Text not used by [place] Assessments - Encounter Diagnoses This section includes the primary and secondary diagnoses documented for the Encounter. Date/Time Primary/Secondary Diagnosis Diagnosis Name Provider Source Dec 15, 2024 02:51 PM PRIMARY Type 2 diabetes mellitus with hyperglycemia RITO THOMPSON [facility] Plan of Treatment: Future Appointments (+ 6 months) and Future Tests (+/- 45 days) The Plan of Treatment section includes future care activities for the patient from all [place] treatmentfacilities. This section includes future appointments and future orders which are active, pending or scheduled. Future Appointments This section includes appointments that were scheduled to occur 6 months from the date of the Encounter, up to a maximum of 20 appointments. The data comes from all [place] treatment facilities. Appointment Date/Time Appointment Type Appointme nt Facility Name Dec 29, 2024 11:00 AM AMBULATORY - NONE [facility] Jan 05, 2025 11:00 AM AMBULATORY - NONE [facility] Jan 12, 2025 11:00 AM AMBULATORY - NONE [facility] Jan 19, 2025 11:00 AM AM[facility]ULATORY - NONE [facility] Jan 20, 2025 01:00 PM AM[facility] [place] Jan 26, 2025 11:00 AM AMBULATORY - NONE [facility] Feb 02, 2025 11:00 AM AMBULATORY - NONE [facility] Feb 07, 2025 12:00 PM AMBULATORY - NONE [facility] [place] [facility] Feb 07, 2025 03:00 PM [facility] - [facility] Feb 09, 2025 11:00 AM AMBULATORY - NONE [facility] Feb 16, 2025 11:00 AM AMBULATORY - NONE [facility] Feb 21, 2025 12:00 PM AMBULATORY - NONE [facility] [place] [facility] Feb 23, 2025 11:00 AM AMBULATORY - NONE [facility] Mar 02, 2025 11:00 AM AMBULATORY - NONE [facility] Mar 07, 2025 12:00 PM AMBULATORY - NONE [facility] [place] [facility] Mar 09, 2025 11:00 AM AMBULATORY - NONE [facility] Mar 09, 2025 01:30 [facility] April 04, 2025 02:00 PM AMBULATORY - MEDICINE [facility] Jun 13, 2025 03:00 PM AMBULATORY - MEDICINE [facility] Lab Results: +/- 30 days of the encounter This section includes the Chemistry and Hematology Lab Results on record with [place] for the patient. Radiology Reports and Pathology Reports are provided separately, in subsequent sections. Lab Results This section contains the Chemistry/Hematology Results that were resulted 30 days before or 30 daysafter the date of the Encounter. Date/Time Source Result Type Result - Unit Interpretation Reference Range Specimen Type Comment Dec 06, 2024 01:41 PM [facility] LIPID PANEL, NON FASTING SERUM Specim en Type: SERUM No comment entered. Ordering Provider: HUNTER MARTINEZ Report Released Date/Time: Dec 06, 2024 01:15 PM Reporting Lab: [address] [address] Performing Lab: [address] [address] CHOLESTEROL 144 mg/dL TRIGLYCERIDE 293 mg/dL H 0-150 LDL calculated 45 mg/dL 0-129 CHOL/HDL 3.6 HDL CHOLESTEROL 40 mg/dL 40-60 Dec 06, 2024 01:41 PM [facility] LIVER FUNCTION SERUM Specimen Type: SERUM No comment entered. Ordering Provider: HUNTER MARTINEZ Report Released Date/Time: Dec 06, 2024 01:15 PM Reporting Lab: [address] [address] Performing Lab: [address] [id number] PROTEIN,TOTAL 7.3 g/dL 6.0-8.3 ALBUMIN 4.1 g/dL [...] Height Weight Body Mass Index Source Dec 15, 2024 11:58 AM 231 32 [facility] Social History: Smoking Status (Most current) and Tobacco Use (All prior to encounter date) This section includes the most current, and the historical, smoking and tobacco- related health factors from the [place] facility where the Encounter took place. Current Smoking Status This section includes the most current smoking, or tobacco-related health factor, from the [place] facility where the Encounter took place. Date/Time Current Smoking Status Comment Facil ity May 27, 2022 09:30 AM VA-TOBACCO NEVER USED [facility] Tobacco Use History This section includes a history of the smoking, or tobacco-related health factors, that were collected on or before the date of the Encounter. The data comes from the [place] facility where the Encounter took place. Date/Time Smoking Status/Tobacco Use Comment F acility Jan 11, 2020 10:38 AM [place]-TO[place] NEVER USED [facility] Jan 25, 2019 01:47 PM [place]-TO[place]ACCO NEVER USED [facility] Feb 04, 2018 01:53 PM LIFETIME NON-TOBACCO USER [facility] Feb 04, 2017 10:10 AM LIFETIME NON-TOBACCO USER [facility] Jul 12, 2015 08:31 AM LIFETIME NON-TOBACCO USER [facility] Advance Directives: All historical and current Section Date Range: From patient's date of to the date document was created. This section includes ALL of a patient's completed or amended [place] Advance and Rescinded Directives. The entries below indicate that a directive exists for the patient, but an actual copy is not included with this document. The data comes from all [place] facilities. Date Advance Directives Provider Source Aug 07, 2015 ADVANCE DIRECTIVE BEN BERNBAE [facility] Encounter Notes: All associated encounter notes This section contains the clinical notes associated to the Encounter. Date/Time Encounter Note(s) Provider Source Dec 15, 2024 02:30 PM PHARMACY OUTPATIEN T NOTE: LOCAL TITLE: PHARMACY CLINIC NOTE STANDARD TITLE: PHARMACY OUTPATIENT NOTE DATE OF NOTE: DEC 15, 2024@14:30 ENTRY DATE: DEC 15, 2024@14:30:35 AUTHOR: ADIEL THOMPSON COSIGNER: URGENCY: STATUS: COMPLETED Patient Name: JUSTIN BARRAGAN was seen via [facility] for follow-up for diabetes management treatment. : Jul Age: 69 Sex: MALE Race: WHITE Subjective: Pt presents for a f/up. He is doing well on higher dose of ozempic Per prev: Pt went to ER in [...] non-VA MD: Dr. Juan Jose Martinez MD [facility] Endocrinology on 10/21/24 A1C: 6.4% -repeated that day. Pt was trained on dexcom at the last visit w/ CPP> Per prev: Sees Dr. Reid from [facility] in October,. Pt states his BG levels are dropping but he is not loosing as much weight as he desires. Per prev: Pt presents to the visit w/ outside non-VA rx for semaglutide. [facility]. This insurance writer checked w/ community care pharmacist and pt does not have a current/active CC consult to endocrine. Informed the pt this rx cannot be filled at the va and explained the rationale. Pt wishes to proceed to obtain GLP-1 agent from the [facility] but does commment that he did not have to pay copay for this rx in [place]. Per prev: Pt presents for ana upload and evaluation. Pt states he continues [...] 86 ml/min 11/2023 -eGFR >90 ml/min on -- Metformin 1000 mg bid -Insulin glargine 6-8 units daily --semaglutide 2 mg weekly - (Sundays) non-VA Labs: HEMOGLOBIN A1C TREND Collection DT Spec HGBA1c 10/27/2024 14:50 BLOOD 6.0 H 04/21/2024 13:35 BLOOD 6.2 H 12/10/2023 13:50 BLOOD 6.1 H 09/18/2023 14:30 BLOOD 6.0 H 02/26/2023 09:14 BLOOD 6.0 H CBC TREND Collection DT Spec WBC RBC HGB HCT MCV MCH PLT 10/27/2024 14:50 BLOOD 6.22 5.33 16.2 48.3 90.6 30.4 252 07/05/2024 13:24 BLOOD 6.07 4.77 14.8 44.1 92.5 31.0 242 12/10/2023 13:50 BLOOD 6.82 5.19 15.8 47.5 91.5 30.4 254 01/13/2020 07:11 BLOOD 5.39 4.24 13.4 40.2 94.8 31.6 205 01/27/2018 09:02 BLOOD 4.80 4.56 14.3 41.8 91.7 31.4 295 CHEM 7 TREND LAB CUMULATIVE SELECTED Collection DT Spec GLUCOSE BUN CREATIN Sodium K+/Pot CL CO2 10/27/2024 14:50 SERUM 92 19 0.84 138 4.8 107 20 07/05/2024 13:24 SERUM 105 H 22 0.92 134 L 4.5 101 23 04/21/2024 13:35 SERUM 95 21 0.87 138 4.2 105 21 12/10/2023 13:50 SERUM 88 22 0.95 139 4.6 104 25 09/18/2023 14:30 SERUM 122 H 24 0.93 137 4.0 105 22 LAB CUMULATIVE SELECTED 2 No selection items chosen for this component. CHEM 7 Results Collection DT Spec Sodium K+/Pot CL CO2 GLUCOSE BUN 10/27/2024 14:50 SERUM 138 4.8 107 20 92 19 07/05/2024 13:24 SERUM 134 L 4.5 101 [...] DT Spec CHOL HDL CHO/HDL LDL-c TRIG 12/06/2024 13:41 SERUM 144 40 3.6 45 293 H 12/10/2023 13:50 SERUM 151 53 2.8 61 187 H 11/28/2022 08:22 SERUM 130 53 2.5 60 83 11/14/2021 09:01 SERUM 127 49 2.6 59 95 01/13/2020 07:11 SERUM 103 45 2.3 45 64 THYROID PANEL Collection DT Specimen Test Name [...] D (25-OH) 27 ng/mL 20 - 50 ---- LIPID PANEL ---- SERUM Dec 06 Dec 10 Nov 28 Nov 14 Reference 2024 2023 2022 2020 13:41 13:50 08:22 09:01 Units Ranges CHOL 144 151 130 127 mg/dL <7 - 199 TRIG 293 H 187 H 83 95 mg/dL 0 - 150 HDL 40 53 53 49 mg/dL 40 - 60 LDL-d mg/dL <10 - 120 LDL 45 61 60 59 mg/dL 0 - 129 CHO/HDL 3.6 2.8 2.5 2.6 Comments: a o v ad SrCr (last 6 weeks): CREATININE-EGFR - NONE FOUND CRCL IBW: CrCl(est): 96.0 mL/min (Creat:0.84 10/27/24) CRCL ACT: 100 mL/min CRCL ADJ: 96.0 mL/min (10/27/24) ---- GENERAL CHEMISTRY ---- SERUM Dec 06 Oct 27 Jul 05 Apr 21 Reference 2025 2024 2024 2024 13:41 14:50 13:24 13:35 Units Ranges AST 24 U/L 5 - 34 ALT 24 U/L <6 - 55 ---- GENERAL CHEMISTRY ---- SERUM Dec 10 Sep 18 Feb 26 Nov 28 Reference 2023 2022 2022 2022 13:50 14:30 09:14 08:22 Units Ranges AST 38 H 47 H U/L 5 - 34 ALT 37 34 U/L <6 - 55 Vitals: Weight (BMI): 231 lb [104.78 kg] (12/15/2024 11:58) Height: 71 in [180.3 cm] (06/03/2023 15:46) BMI: 32.3 Active and Recently Outpatient Medications (including Supplies): Active Outpatient Medications Status Active Outpatient Medications (including Supplies): ALBUTEROL 90MCG (CFC-F) 200D ORAL INHL INHALE 2 PUFFS BY ACTIVE MOUTH EVERY 4 HOURS NEEDED Indication: FOR ASTHMA ATTACK EMPAGLIFLOZIN 25MG TAB TAKE ONE TABLET BY MOUTH ONCE DAILY ACTIVE Indication: FOR TYPE 2 DIABETES MELLITUS FLUTICAS 250/SALMETEROL 50 INHL DISK 60 INHALE 1 PUFF BY ACTIVE MOUTH TWICE DAILY GLUCOSE 4GM CHEW TAB CHEW FOUR TABLETS BY MOUTH NEEDED ACTIVE Indication: FOR LOW BLOOD SUGAR GLUCOSE SENSOR DEXCOM G7 USE 1 SENSOR DIRECTED EVERY 10 ACTIVE DAYS INSULIN,GLARGINE-YFGN 100UNIT/ML PEN 3ML INJECT 10 UNITS ACTIVE SUBCUTANEOUSLY ONCE DAILY Indication: FOR DIABETES LEVOTHYROXINE NA (SYNTHROID) 150MCG TAB TAKE ONE TABLET BY ACTIVE (S) MOUTH EVERY MORNING 30 MINUTES BEFORE BREAKFAST FOR THYROID - TAKE ON AN EMPTY STOMACH WITH A FULL GLASS OF WATER METFORMIN HCL 1000MG TAB TAKE ONE TABLET BY MOUTH TWICE ACTIVE DAILY FOR DIABETES NEEDLE,PEN 31G,5MM USE 1 NEEDLE SUBCUTANEOUSLY ONCE DAILY ACTIVE FOR USE WITH PEN DEVICE SODIUM FLUORIDE 1.1% (FL 0.5%) DENT GEL APPLY PEA SIZE ACTIVE AMOUNT TO TEETH AT BEDTIME Indication: FOR TOOTH DECAY PREVENTION Non-VA ASCORBIC ACID 500MG TAB 1000MG BY MOUTH ONCE DAILY ACTIVE Non-VA BISACODYL 5MG EC TAB 5MG BY MOUTH TWICE DAILY ACTIVE Non-VA CHOLECALCIF 50MCG (D3-2,000UNIT) TAB 2000UNIT BY ACTIVE MOUTH DAILY Non-VA DOCUSATE NA 100MG CAP 100MG BY MOUTH TWICE DAILY ACTIVE Non-VA FENOFIBRATE 145MG TAB 145MG BY MOUTH ONCE DAILY ACTIVE Indication: FOR HIGH CHOLESTEROL Non-VA FLAXSEED CAP,ORAL BY MOUTH DAILY ACTIVE Non-VA LISINOPRIL 20MG TAB 20MG BY MOUTH ONCE DAILY ACTIVE Non-VA MULTIVITAMIN/MINERALS CAP/TAB 1 TABLET BY MOUTH AT ACTIVE BEDTIME Non-VA OLANZAPINE 15MG TAB 15MG BY MOUTH AT BEDTIME ACTIVE Non-VA POLYETHYLENE GLYCOL 3350 ORAL PWDR 17 GRAMS (1 ACTIVE CAPFUL) BY MOUTH AT BEDTIME Non-VA SIMVASTATIN 80MG TAB 40MG BY MOUTH AT BEDTIME ACTIVE 21 Total Medications MEDICATION RECONCILIATION: done BLOOD GLUCOSE MONITORING INFORMATION OBTAINED FROM [facility] SENSOR on 11/20/22: 7 DAY AVERAGE [...] range 102-167 mg/dl) ======= 10/17/22: Taken from [facility]: BLOOD GLUCOSE MONITORING 15 DAY AVERAGE = [...] avmg/dl; (n=6; range: 88-141 mg/dl) Date: 04/08/23: ana pro 15 DAY AVERAGE = 157 15 DAY TIME IN TARGET very high >250 5% high 181-250 26% target range 70-180 66% low 54-69 2% very low <54 1% TOTAL 15 DAY LOW GLUCOSE EVENTS = 5 A SEPERATE NOTE W/ UPLOAD IS AVAILABLE IN [facility] Date: 07/09/23: fasting BG avmg/dl; (n=3; range: [...] 0% VERY LOW SENSOR USAGE: 100% Date: 12/15/24 Dexcom G7: 14 day avg 148 mg/dl 3% VERY HIGH 12% HIGH 85% IN TARGET RANGE 0% LOW 0% VERY LOW SENSOR USAGE: 97% NUTRITION: Diet Patterns: patient eats on avg.3 x/day: B: yogurt or cottage cheese and bannana, or oatmeal L: mac and cheese w/ green beans and potatoes or soup: potatoe or chicken noodle soup, can of peaches D: 3:30-4:30PM: pt cooks ; tacos, once in a while he takes out food i..e [employer] or 1 6 [employer] pad grinder and 2 small pears Snacks: cut down ; popcorn 4-5 carbs , hot chocolate, pretzels , mixed berries Drinks:4-5 bottles of water and coffee, diet root bear ; decaf coke Exercise: walking : increased over last couple of days ~ 10K steps 2 miles/day [facility] HYPOGLYCEMIC Events: 0 in the last 2 [...] 238 lbs weight 10/2024 => 233 lbs weight 11/2024 => 231 lbs goal weight: 217 lbs ASSESSMENT/PLAN: Reviewed [...] pt is loosing weight. f/up in November date: 12/15/24 Pt is doing very well. Time in target continues to be >80%. Discussed physical activity. Difficult to walk during the cold weather. Suggested fit vet consult - pt is interested. No changes in medications. Reviewed nutrition pt carries food journal. f/up x 6 months. 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 Clinic's Next Scheduled Follow-up:June, No barriers; Patient understands and agrees to current treatment plan. If he has any questions, concerns, or changes in current health status he will call or [facility] to the [facility].n current health status he will call or come [facility] to the [facility]. FUTURE APPOINTMENTS: 02/07/2025 15:00 SPR PODIATRY 1 04/04/2025 14:00 CWM/SO/PACT 1 EXPORT SPECIALIST 09/07/2025 08:00 NDM OPTOMETRY 1 AM DM type is : T2D Length of Visit: 30 minutes PBM PharmD Pharmacotherapy Rem V12: PHARMACIST INTERVENTIONS: TYPE 2 DIABETES MELLITUS Medication monitoring, no dosage change required, continue to monitor and assess /damaris/ ADIEL THOMPSON CLINICAL PROGRAM TECHNICIAN Signed: 12/16/2024 09:23 Receipt Acknowledged By: 12/19/2024 10:12 /es/ HUNTER MARTINEZ NP NURSE PRACTITIONER ADIEL THOMPSON
--- OUTSIDE RECORDS SUMMARY | 2025-03-09 15:44 | XMS_ITS | Encounter Summary ---
Author Name [facility] [place] Organization [facility] [place] Address [address] [place] [id number] Care Team Providers Care Area Forester Name Role Phone HUNTER MARTINEZ Primary Care [...] [place] H Nov 16, 2014 01 [phone] [id number] JARRETT BARRAGAN PATIENT MEDICARE (WNR) MEDICARE (M) PART A Jul 17, 2018 PART A [id number] LAUREL,JARRETT MEJIASONY PATIENT MEDICARE (WNR) MEDICARE (M) PART B Jul 17, 2018 PART B [id number] LAUREL,JARRETT MEJIASONY PATIENT MEDICARE (WNR) MEDICARE (M) PART A Jul 17, 2018 PART A [id number] LAUREL,JARRETT MEJIASONY PATIENT MEDICARE (WNR) MEDICARE (M) PART B Jul 17, 2018 PART B [id number] [phone] LAUREL,JARRETT DE LA TORRE PATIENT Selected Encounter This section includes the information on record at [place] for the Encounter. Date/Time Encounter Type Encounter Description Reason Provider Source May 17, 2024 03:00 PM OFFICE O/P EST LOW 20 MIN PODIATRY ICD-10-CM L60.0 Ingrowing nail BLANCA PAYAN [facility] Encounter Template Text not used by [place] Assessments - Encounter Diagnoses This section includes the primary and secondary diagnoses documented for the Encounter. Date/Time Primary/Secondary Diagnosis Diagnosis Name Provider Source May 17, 2024 03:27 PM PRIMARY Ingrowing nail BLANCA PAYAN [place] May 17, 2024 03:27 PM SECONDARY Pain in left toe(s) ORABLANCA Marcos BETTY May 17, 2024 03:27 PM SECONDARY Pain in right toe(s) BLANCA PAYAN [place] May 17, 2024 03:27 PM SECONDARY Type 2 diabetes w diabetic peripheral angiopath w/o gangrene BLANCA PAYAN Plan of Treatment: Future Appointments (+ 6 months) and Future Tests (+/- 45 days) The Plan of Treatment section includes future care activities for the patient from all [place] treatmentfacilities. This section includes future appointments and future orders which are active, pending or scheduled. Future Appointments This section includes appointments that were scheduled to occur 6 months from the date of the Encounter, up to a maximum of 20 appointments. The data comes from all [place] treatment facilities. Appointment Date/Time Appointment Type Appointme nt Facility Name May 26, 2024 11:00 AM AMBULATORY - NONE [facility] Jun 02, 2024 11:00 AM AMBULATORY - NONE [facility] Jun 07, 2024 12:00 PM [facility] [place] [facility] Jun 09, 2024 11:00 AM AMBULATORY - NONE [place] Jun 16, 2024 10:00 AM AM[facility]UL[facility]ORY [facility]INE [facility] [place] [facility] Jun 16, 2024 11:00 AM AMBULATORY - NONE [facility] [facility] Jun 23, 2024 11:00 AM AMBULATORY - NONE [facility] Jun 28, 2024 12:00 PM AMBULATORY - NONE [facility] [place] [facility] Jul 05, 2024 01:00 PM [facility] Jul 12, 2024 12:00 PM AMBULATORY - NONE [facility] [place] [facility] Jul 14, 2024 11:00 AM AMBULATORY - NONE [facility] [facility] Jul 21, 2024 11:00 AM AMBULATORY - NONE [facility] Jul 26, 2024 12:00 PM AMBULATORY - NONE [facility] [place] [facility] Jul 28, 2024 01:00 PM [facility]ULATORY - [facility]ICINE [facility] [place] [facility] Aug 09, 2024 12:00 PM AMBULATORY - NONE [facility] [place] [facility] Aug 11, 2024 11:00 AM AMBULATORY - NONE [facility] Aug 17, 2024 03:00 PM AMBULATORY - MEDICINE [facility] [place] [facility] Aug 18, 2024 11:00 AM AMBULATORY - NONE [facility] [facility] Aug 23, 2024 12:00 PM AMBULATORY - NONE [facility] [place] [facility] Aug 25, 2024 11:00 AM AMBULATORY - NONE [facility] [facility] Lab Results: +/- 30 days of the encounter This section includes the Chemistry and Hematology Lab Results on record with [facility] for the patient. Radiology Reports and Pathology Reports are provided separately, in subsequent sections. Lab Results This section contains the Chemistry/Hematology Results that were resulted 30 days before or 30 daysafter the date of the Encounter. Date/Time Source Result Type Result - Unit Interpretation Reference Range Specimen Type Comment Apr 21, 2024 01:35 PM [facility] HEMOGLOBIN A1C PANEL BLOOD Specimen Type: BLOOD Comment: Values obtained from A1C measurements can vary. For atypical A1C assays, a reported value of 7.0 could actually be between 6.72 and 7.28 if measured by a reference method. A reported value of 9.0 could actually be between 8.73 and 9.27. Ref: http://www.ngsp .org/CAPdata.as p Ordering Provider: ADIEL THOMPSON Report Released Date/Time: Apr 21, 2024 01:11 PM Reporting [facility] [address] [facility] [address] Performing Lab: [facility] [address] [facility] [address] HEMOGLOBIN A1C 6.2 H 4.0-5.6 Apr 21, 2024 01:35 PM [facility] MICROALBUMIN CREATININE RATIO PANEL URINE Spe cimen Type: URINE No comment entered. Ordering Provider: ADIEL THOMPSON Report Released Date/Time: Apr 21, 2024 01:11 PM Reporting Lab: [facility] [address] [facility] [address] Performing Lab: [facility] [address] [facility] [address] MICROALBUMIN/CREATININE RATIO canc mg/g 0-29.9 MICROALBUMIN,QUANTITATIVE < 0.5 mg/dL RR UNAVAIL CREATININE URINE 13.76 mg/dL Apr 21, 2024 01:35 PM [facility] BASIC METABOLIC PANEL (non-fasting) SERUM Spe cimen Type: SERUM No comment entered. Ordering Provider: ADIEL THOMPSON Report Released Date/Time: Apr 21, 2024 01:11 PM Reporting Lab: [facility] [address] [facility] [address] Performing Lab: [address] [address] UREA NITROGEN 21 mg/dL 7-25 GLUCOSE 95 mg/dL 65-100 SODIUM 138 mmol/L 135-145 POTASSIUM 4.2 mmol/L 3.5-5.0 CHLORIDE 105 mmol/L 100-110 CO2 21 meq/L 20-30 CREATININE, Serum 0.87 mg/dL 0.50-1.40 eGFR(CKD-EPI 2020) >90 mL/min >60 Social History: Smoking Status (Most current) and Tobacco Use (All prior to encounter date) This section includes the most current, and the historical, smoking and tobacco- related health factors from the [place] facility where the Encounter took place. Current Smoking Status This section includes the most current smoking, or tobacco-related health factor, from the [place] facility where the Encounter took place. Date/Time Current Smoking Status Comment Otf ity May 27, 2022 09:30 AM IN-TOBACCO NEVER USED [place] Tobacco Use History This section includes a history of the smoking, or tobacco-related health factors, that were collected on or before the date of the Encounter. The data comes from the [place] facility where the Encounter took place. Date/Time Smoking Status/Tobacco Use Comment F acility Jan 11, 2020 10:38 AM VA-TOBACCO NEVER USED [place] Jan 25, 2019 01:47 PM VA-TOBACCO NEVER USED [place] Feb 04, 2018 01:53 PM LIFETIME NON-TOBACCO USER [place] Feb 04, 2017 10:10 AM LIFETIME NON-TOBACCO USER [place] Jul 12, 2015 08:31 AM LIFETIME NON-TOBACCO USER [place] Advance Directives: All historical and current Section Date Range: From patient's date of to the date document was created. This section includes ALL of a patient's completed or amended [place] Advance and Rescinded Directives. The entries below indicate that a directive exists for the patient, but an actual copy is not included with this document. The data comes from all [place] facilities. Date Advance Directives Provider Source Aug 07, 2015 ADVANCE DIRECTIVE [facility] Encounter Notes: All associated encounter notes This section contains the clinical notes associated to the Encounter. Date/Time Encounter Note(s) Provider Source Jun 01, 2024 08:52 AM LETTERS: LOCAL TITLE: PATIENT LETTER (B) STANDARD TITLE: LETTERS DATE OF NOTE: JUN 01, 2024@08:52 ENTRY DATE: JUN 01, 2024@08:52:29 AUTHOR: PEEWEE BLAND COSIGNER: URGENCY: STATUS: COMPLETED [facility] [address] [place] [address] [phone] * JUSTIN BARRAGAN [address] [place] [id number] Date: JUN 01, 2024 Dear Boone: This is a reminder letter that your SHOES are ready for pick at the [facility] [place] located at [address] [place] [address]. You may pick and shovel worker your shoes and or orthotics at your convenience any day, Thursday through Daniel between 8:30am and 3:30pm. You do not need an appointment. BUT WE DO REQUEST THAT YOU CALL BEFORE ARRIVING TO MAKE SURE THE PODIATRY HEALTH AUTOMATIC VULCANIZING OPERATOR IS AVAILABLE ON THAT DAY. Call [phone] for Peewee if you have any questions. We hope to see you soon, Sincerely, Office Staff for:HUNTER MARTINEZ Care Provider Upcoming Appointments: 07/05/2024 13:00 CWM/SO/PACT 1 FOOD SERVICE WORKER 07/28/2024 13:00 CWM/SO/PHARM/PACT 2 09/05/2024 08:30 CWM/NO/OPTOMETRY/MERHAR 10/04/2024 15:00 CWM/SO/PODIATRY/PEEWEE STOREY [place] May 17, 2024 03:29 PM PODIATRY NOTE: LOCAL TITLE: PODIATRY PAVE FOOT EXAM STANDARD TITLE: PODIATRY NOTE DATE OF NOTE: MAY 17, 2024@15:29 ENTRY DATE: MAY 17, 2024@15:29:10 AUTHOR: BLANCA PAYAN COSIGNER: URGENCY: STATUS: COMPLETED PAVE FOOT EXAM A foot risk level was completed. The following risk level was identified for this patient: +POD RISK SCORE+ *--LEVEL 3 - (HIGH RISK)* ANY of the following: Severe obstructive peripheral arterial disease Ulceration; OR history of ulceration, osteomyelitis, or amputation Charcot joint w/foot deformity Chronic kidney disease, stage 4 or higher (Decreased sensation, foot deformity, and minor foot infection may be present or absent) LEVEL 3 FOOT EDUCATION: 1. Advised patient that extra depth footwear with soft molded inserts and braces may be required. 2. Advised patient not to walk barefoot. Instructed the patient to pay close attention to the style and fit of shoes. 3. Explained the importance of daily foot checks. Explained that loss of sensation leads to callouses. Callouses break down, which result in ulcers that may lead to gangrene and amputation. 4. Stressed the importance of daily foot hygiene. Warm (not hot) bathing of the feet, complete drying and thorough inspection for changes in the condition of the skin constitute daily foot care. Demonstrated how to do a thorough foot check. 5. Emphasized the use of clean, non-restrictive socks/stockings and well fitting shoes. 6. Stressed the importance of immediate follow-up of any foot injuries or ulcers. Explained that he/she should be non-weight bearing whenever there are lesions on the foot, to prevent cellular damage. Level of Understanding: Good Patient/Family Response to Foot Care Teaching Patient walks barefoot: A few times per month Patient/caregiver able to clean feet at least once daily: Yes Patient/caregiver has difficulty examining feet: No /damaris/ BLANCA PAYAN DPM PROMOTION MANAGER Signed: 05/17/2024 15:29 BLANCA PAYAN [place] May 17, 2024 10:51 AM PODIATRY NOTE: LOCAL TITLE: PODIATRY NOTE STANDARD TITLE: PODIATRY NOTE DATE OF NOTE: MAY 17, 2024@10:51 ENTRY DATE: MAY 17, 2024@10:51:42 AUTHOR: BLANCA PAYAN EXP COSIGNER: URGENCY: STATUS: COMPLETED PODIATRY NOTE Has ADDENDA HAS RECEIVED BOTH COVID VACCINE DOSES + 4 BOOSTERS AT [facility] LAST SEEN FOR TREATMENT: 02/23/2024 S: Pt. is a 68 yo alert WDWN CAUC MALE who presents for continued podiatric evaluation & care for treatment of a presenting complaint of painful ingrown toenails and callus. Patient has DM & is at risk of injury with self or other non-professional care. Patient has been referred by: NEIL ROGERS NP Location of symptoms are: plantar 5th met head bilateral & 2nd left nail Onset of symptoms has been several weeks due to this being a recent condition that has been exacerbating over the past few days. Duration of symptoms is intermittently with periods of exacerbation and remission. Description of symptoms is of an aching nature. Contributing factors are: shoes and increased activity. PMH: Active problems - Computerized Problem List is the source for the following: *NOTE: REVIEWED ABOVE NOTING NO CHANGES SINCE PREVIOUS VISIT: * PLEASE SEE PROBLEM LIST TEMPLATE FOR COMPLETE LIST NEEDED. Family History: Non-contributory Social History: N/A *DENIES ANY RECENT CHANGES IN MEDS UPON QUESTIONING TODAY- SEE RECONCILIATION PERFORMED THIS DATE BELOW TOBACCO USE = NONE Allergies:PENICILLIN, BEE STINGS Previous Surgery/Hospitalization: N/A *NOTE: A1c= 6.2 (LAST TAKEN: 04/2024) FBS= 140 RISK =1 HEIGHT:236 lb [107.3 kg] (07/05/2020 11:00) WEIGHT:71 in [180.3 cm] (01/11/2020 10:54) REVIEW OF SYSTEMS: DEFERRED BEING NON-CONTRIBUTORY TO THE CC & I HAVE REVIEWED THE PCP NOTES & PMH WELL. O: DERMATOLOGICAL: Exam reveals skin color, temp & text to be WNL. There is absence of hair noted. Nails are WNL but incurvated and he is unable to render self-care The affected nails are 1-2-3-4-5 bilat with the 2nd LT mildly thickened and had previous trauma. There are superficial painful hyperkeratotic lesions noted at this time located at the following sites: PLANTAR 5TH MET HEAD BILATERAL. There are no rashes, ulcers, indurations or nodules noted. VASCULAR: Exam reveals DP & PT pulses to be +2 equal & symmetrical bilateral. CFT is <3 sec x 10. There are no superficial varices noted and there is no edema noted. MUSCULOSKELETAL: Exam reveals muscle strength and tone to be equal & symmetrical bilaterally & WNL for an individual of this age and present physical medical condition. There is pain free ROM at all joints distal to and including the ankle. Patient states that he likes to walk and has been active. NEUROLOGICAL: Exam reveals S/D, vibratory, light touch & proprioception sensations to be equal & symmetrical bilaterally & WNL for an individual of this age and present physical-medical status. Protective sensation utilizing a [place]-Yoana lOg monofilament is 10/10 bilateral. *NOTE: *YEARLY COMPLETE PAVE EXAM PERFORMED TODAY - SEE BELOW. BIOMECHANICAL: Exam is deferred at this time due as BEING non-contributory to the cc . A: Clinical Impression is painful onychocryptic nails & hyperkeratosis PLANTAR 5TH MET HEAD BILATERAL in the presence of DM BUT NO PVD. P: Treatment consists of trimming-reduction of all nails via manual & electric means with excision of the offending nail borders and surgical paring-debridement of all hyperkeratosis utilizing sharp dissection with a sterile #10 scalpel. All care rendered without complications & the patient is progressing well after podiatric care this date and will be scheduled for periodic podiatric care in an attempt to prevent future complications due to the underlying medical conditions. Treatment by a non-professional could be extremely hazardous to the patient's well-being due to the underlying medical conditions. Return to Clinic: ( 10/04 @ 3PM) *DISCUSSED NEW PROTOCOLS AND CALLED CARYL TODAY FOR RESCHEDULING. I DISCUSSED THE FINDINGS & PLAN WITH PATIENT (UNCHANGED SINCE PREVIOUS VISIT) & PATIENT AGREES AND UNDERSTANDS PLAN & MIRROR RECEIVED *REVIEWED HOME FOOT CARE FEET ARE IN EXCELLENT CONDITION AND I PROVIDED HIM WITH WRITTEN RECOMMENDATIONS FOR FOOT CARE TO BE REVIEWED AT HOME (FOOT CARE TIPS). HE CONTINUES UTILIZING A NAIL FILE ON HIS HEEL CALLUS AND IT IS IMPROVED DISCUSSED STAYING HOME FOR A QUIET May WITH FAMILY Medication Reconciliation: PERFORMED TODAY - SEE BELOW. Outpatient: Has the patient been taking medications as documented in the EMLR? YES: The patient has been taking medications as documented in the EMLR. Essential Medication List for Review used to complete this medication reconciliation. INCLUDED IN THIS LIST: Alphabetical list of active outpatient prescriptions dispensed from this [place] (local) and dispensed from another [place] or DoD facility (remote) as well as [...] Remote Allergy/ADR Data available for this [facility] [place] [facility] PENICILLIN Med Recon Scottieary (Tool #1) INCLUDED IN THIS LIST: Alphabetical list of active outpatient prescriptions dispensed from this [place] (local) and dispensed from another [place] or [facility] facility (remote) as well as inpatient orders (local pending and active), local clinic medications, locally documented non-VA medications, and local prescriptions that have or been discontinued in the past 90 days. Non-VA Meds Last Documented On: Dec 10, 2023 NOTE The display of VA prescriptions dispensed from another [place] or [facility] facility (remote) is limited to active outpatient prescription entries matched to National Drug File at the originating site and may not include some items such as investigational drugs, compounds, etc. NOT INCLUDED IN THIS LIST: Medications self-entered by the patient into personal health records (i.e. Valued Relationships) are NOT included in this list. Non-VA medications documented outside this [place], remote inpatient orders (regardless of status) and remote clinic medications are NOT included in this list. The patient and provider must always discuss medications the patient is taking, regardless of where the medication was dispensed or obtained. OUTPT ALBUTEROL 90MCG (CFC-F) 200D ORAL INHL (Status = Active) INHALE 2 PUFFS BY MOUTH EVERY 4 HOURS NEEDED FOR ASTHMA ATTACK Rx# [id number] Last Released: 02/03/24 Qty/Days Supply: Rx Expiration Date: 12/10/24 Refills Remainin Indication: FOR ASTHMA ATTACK Non-VA ASCORBIC ACID 500MG TAB TAKE TWO TABLETS BY MOUTH ONCE DAILY Medication prescribed by Non-VA provider. Non-VA BISACODYL 5MG EC TAB TAKE ONE TABLET BY MOUTH TWICE DAILY Medication prescribed by Non-VA provider. OUTPT CARBOXYMETHYLCELLULOSE NA 0.5% OPH SOLN (Status = Active) INSTILL 1 DROP INTO EACH EYE FOUR TIMES DAILY NEEDED FOR DRYNESS Rx# [id number] Last Released: 09/11/23 Qty/Days Supply: Rx Expiration Date: 09/03/24 Refills Remainin Non-VA CHOLECALCIF 50MCG (D3-2,000UNIT) TAB TAKE ONE TABLET BY MOUTH DAILY Medication prescribed by Non-VA provider. Non-VA DOCUSATE NA 100MG CAP TAKE 1 CAPSULE BY MOUTH TWICE DAILY Medication prescribed by Non-VA provider. OUTPT EMPAGLIFLOZIN 25MG TAB (Status = Active) TAKE ONE TABLET BY MOUTH ONCE DAILY FOR DIABETES Rx# [id number] Last Released: 04/21/24 Qty/Days Supply: Rx Expiration Date: 07/09/24 Refills Remainin Non-VA FENOFIBRATE 145MG TAB TAKE ONE TABLET BY MOUTH ONCE DAILY Medication prescribed by Non-VA provider. Indication: FOR HIGH CHOLESTEROL Non-VA FLAXSEED CAP,ORAL TAKE BY MOUTH DAILY OUTPT FLUTICAS 250/SALMETEROL 50 INHL DISK 60 (Status = Active) INHALE 1 PUFF BY MOUTH TWICE DAILY Rx# [id number] Last Released: 03/07/24 Qty/Days Supply: 12/15 Rx Expiration Date: 12/10/24 Refills Remainin OUTPT INSULIN,GLARGINE-YFGN 100UNIT/ML PEN 3ML (Status = Active) INJECT 26 UNITS SUBCUTANEOUSLY ONCE DAILY Rx# [id number] Last Released: 07/13/23 Qty/Days Supply: Rx Expiration Date: 07/09/24 Refills Remainin Indication: FOR DIABETES OUTPT LEVOTHYROXINE NA (SYNTHROID) 150MCG TAB (Status = Active) TAKE ONE TABLET BY MOUTH EVERY MORNING 30 MINUTES BEFORE BREAKFAST FOR THYROID - TAKE ON AN EMPTY STOMACH WITH A FULL GLASS OF WATER Rx# [id number] Last Released: 05/05/24 Qty/Days Supply: Rx Expiration Date: 11/18/24 Refills Remainin Non-VA LISINOPRIL 20MG TAB TAKE ONE TABLET BY MOUTH ONCE DAILY Medication prescribed by Non-VA provider. OUTPT METFORMIN HCL 1000MG TAB (Status = Active) TAKE ONE TABLET BY MOUTH TWICE DAILY FOR DIABETES Rx# [id number] Last Released: 03/22/24 Qty/Days Supply: 180/90 Rx Expiration Date: 10/19/24 Refills Remainin Non-VA MULTIVITAMIN/MINERALS CAP/TAB TAKE ONE TABLET BY MOUTH AT BEDTIME Medication prescribed by Non-VA provider. OUTPT NIACIN (SLO-NIACIN) 500MG TAB,SA (Status = Active) TAKE THREE TABLETS BY MOUTH ONCE DAILY PER DR. CASANOVA Rx# [id number] Last Released: 02/17/24 Qty/Days Supply: 300/90 Rx Expiration Date: 10/23/24 [...] 1.1% (FL 0.5%) DENT GEL (Status = Active) APPLY PEA SIZE AMOUNT TO TEETH AT BEDTIME FOR TOOTH DECAY PREVENTION Rx# [id number] Last Released: 03/18/24 Qty/Days Supply: 180/90 Rx Expiration Date: 07/13/24 Refills Remainin Indication: FOR TOOTH DECAY PREVENTION SUPPLIES OUTPT GLUCOSE SENSOR ModanisaCOM G7 (Status = Discontinued) USE 1 SENSOR DIRECTED EVERY 10 DAYS Rx# [id number] Last Released: 03/26/24 Qty/Days Supply: 02/12 Rx Expiration Date: 11/19/24 Refills Remainin OUTPT GLUCOSE SENSOR DEXCOM G7 (Status = Active) USE 1 SENSOR DIRECTED EVERY 10 DAYS Rx# [id number] Last Released: 04/26/24 Qty/Days Supply: Rx Expiration Date: 04/22/25 Refills Remainin OUTPT LANCET,SOFTCLIX (Status = Active) USE 1 LANCET TOPICALLY TWICE DAILY TO TEST BLOOD SUGAR Rx# [id number] Last Released: 09/18/23 Qty/Days Supply: 200/90 Rx Expiration Date: 09/18/24 Refills Remainin OUTPT NEEDLE,PEN 31G,5MM (Status = Active) USE 1 NEEDLE SUBCUTANEOUSLY ONCE DAILY FOR USE WITH PEN DEVICE Rx# [id number] Last Released: 03/09/24 Qty/Days Supply: 100/90 Rx Expiration Date: 07/14/24 Refills Remainin PAVE Foot Check: A complete foot check was completed at this encounter. VISUAL INSPECTION: Includes inspection for skin breaks, deformity, erythema, trauma, pallor on elevation, dependent rubor, nail deformities, extensive callus and pitting edema. Visual exam results: Normal Comment: no gross abnormalities noted bilateral PEDAL PULSES: Includes palpation of dorsalis and posterior tibial pulses and signs/symptoms of vascular compromise like pain, pallor, parasthesia or paralysis. Absent: Comment: DP & PT PULSES ARE ABSENT NON-PALPABLE BIALT SENSORY CHECK: Includes 10 gram Monofilament ([place]-Yoana) test of sensation. Intact (Greater than or equal to 80% of sites checked) Abnormal (Less than 80% of sites checked): Intact Comment: VIBRATORY & MONOFILAMENT ARE WNL BILAT HIGH-RISK: HIGH RISK INFORMATION PROVIDED: 1. Advised patient that extra depth footwear with soft molded inserts and braces may be required. 2. Advised patient not to walk barefoot. 3. Explained the importance of daily foot checks. 4. Stressed the importance of daily foot hygiene, including bathing, complete drying and thorough inspection for changes. The patient verbalized understanding and was offered a detailed handout on diabetic foot care. Patient is established patient of Podiatry and/or Vascular: Last scheduled appointment: FEB 23, 2024@15:00 CWM/SO/PODIATRY/[facility] Comment: 02/23/2024 /damaris/ BLANCA PAYAN DPM PROMOTION MANAGER Signed: 05/17/2024 15:28 05/17/2024 ADDENDUM STATUS: COMPLETED *NOTE: FBS = 112 AM today /damaris/ BLANCA PAYAN DPM PROMOTION MANAGER Signed: 05/17/2024 15:30 BLANCA PAYAN
--- OUTSIDE RECORDS SUMMARY | 2025-03-09 15:44 | XMS_ITS ---
Author Name [facility] [place] Organization [place] Address [address] [place] [id number] Care Team Providers Care Supervisor Bindery Name Role Phone HUNTER MARTINEZ Primary Care [...] Carmona's Name Patient's Relationship to Policy Carmona [facility], 2014 01 [id number] JARRETT BARRAGAN PATIENT MEDICARE (WNR) MEDICARE (M) PART A Jul 17, 2018 PART A [id number] LAUREL,JARRETT MEJIASONY PATIENT MEDICARE (WNR) MEDICARE (M) PART B Jul 17, 2018 PART B [id number] LAUREL,JARRETT MEJIASONY PATIENT MEDICARE (WNR) MEDICARE (M) PART A Jul 17, 2018 PART A [id number] LAUREL,JARRETT [place] PATIENT MEDICARE (WNR) MEDICARE (M) PART B Jul 17, 2018 PART B [id number] LAUREL,JARRETT [place] PATIENT Selected Encounter This section includes the information on record at [place] for the Encounter. Date/Time Encounter Type Encounter Description Reason Provider Source Dec 01, 2024 08:30 AM HEARING AID FITTING/CHECKIN G AUDIOLOGY ICD-10-CM Z46.1 Encounter for fitting and adjustment of hearing aid ALLYSON MALAGON [place] Encounter Template Text not used by [place] Assessments - Encounter Diagnoses This section includes the primary and secondary diagnoses documented for the Encounter. Date/Time Primary/Secondary Diagnosis Diagnosis Name Provider Source Dec 01, 2024 08:44 AM PRIMARY Encounter for fitting and adjustment of hearing aid ALLYSON MALAGON [place] [facility] [place] [facility] Dec 01, 2024 08:44 AM SECONDARY Sensorineural hearing loss, bilateral ALLYSON MALAGON [place] [facility] [place] [facility] Plan of Treatment: Future Appointments (+ 6 [...] Appointment Type Appointme nt Facility Name Dec 06, 2024 01:30 PM [facility] Dec 08, 2024 11:00 AM AMBULATORY - NONE [place] Dec 13, 2024 12:00 PM AMBULATORY - NONE [facility] [place] [facility] Dec 15, 2024 11:00 AM AMBULATORY - NONE [place] Dec 15, 2024 02:30 PM AMBULATORY - MEDICINE [place] [facility] [place] [facility] Dec 29, 2024 11:00 AM AMBULATORY - NONE [place] Jan 05, 2025 11:00 AM AMBULATORY - NONE [place] Jan 12, 2025 11:00 AM AMBULATORY - NONE [place] Jan 19, 2025 11:00 AM AMBULATORY - NONE [place] Jan 20, 2025 01:00 PM AMBULATORY - MEDICINE [facility] [place] [facility] Jan 26, 2025 11:00 AM AMBULATORY - NONE [place] Feb 02, 2025 11:00 AM AMBULATORY - NONE [place] Feb 07, 2025 12:00 PM [facility] Feb 07, 2025 03:00 PM [facility] Feb 09, 2025 11:00 AM AMBULATORY - NONE [place] Feb 16, 2025 11:00 AM AMBULATORY - NONE [place] Feb 21, 2025 12:00 PM [facility] - NONE [facility] Feb 23, 2025 11:00 AM AMBULATORY - NONE [place] Mar 02, 2025 11:00 AM AMBULATORY - NONE [place] Mar 07, 2025 12:00 PM [facility] Active, Pending, and Scheduled Orders This section includes a listing of several types of active, pending, and scheduled orders, including clinic medications orders, diagnostic test orders, procedure orders and consult orders; where the start date of the order is 45 days before the date of the Encounter or 45 days after the date of theEncounter. The data comes from all [place] treatment facilities. Test Date/Time Test Type Test Details Facility Name Oct 27, 2024 12:00 AM Laboratory - Chemistry Order MICROALBUMIN CREATININE RATIO PANEL URINE (RANDOM) SP [facility] Lab Results: +/- 30 days of the encounter This section includes the Chemistry and Hematology Lab Results on record with [place] for the patient. Radiology Reports and Pathology Reports are provided separately, in subsequent sections. Lab Results This section contains the Chemistry/Hematology Results that were resulted 30 days before or 30 daysafter the date of the Encounter. Date/Time Source Result Type Result - Unit Interpretation Reference Range Specimen Type Comment Dec 06, 2024 01:41 PM [place] LIPID PANEL, NON FASTING SERUM Specim en Type: SERUM No comment entered. Ordering Provider: HUNTER MARTINEZ Report Released Date/Time: Dec 06, 2024 01:15 PM Reporting Lab: [facility] [address] [facility] [address] Performing Lab: [facility] [address] [address] CHOLESTEROL 144 mg/dL TRIGLYCERIDE 293 mg/dL H 0-150 LDL calculated 45 mg/dL 0-129 CHOL/HDL 3.6 HDL CHOLESTEROL 40 mg/dL 40-60 Dec 06, 2024 01:41 PM [place] LIVER FUNCTION SERUM Specimen Type: SERUM No comment entered. Ordering Provider: HUNTER MARTINEZ Report Released Date/Time: Dec 06, 2024 01:15 PM Reporting Lab: [facility] [address] [facility] [address] Performing Lab: [facility] [address] [facility] [address] PROTEIN,TOTAL 7.3 g/dL 6.0-8.3 ALBUMIN 4.1 g/dL 3.5-5.0 ALKALINE PHOSPHATASE 45 U/L 40-150 AST 24 U/L 5-34 ALT 24 U/L BILIRUBIN, TOTAL 0.3 mg/dL 0.2-1.2 Social History: Smoking Status (Most current) and [...] 10, 2023 01:11 PM VA-TOBACCO NEVER USED [facility] Advance Directives: All historical and current [...] Aug 07, 2015 ADVANCE DIRECTIVE BEN BERNABE [facility] Encounter Notes: All associated encounter notes This section contains the clinical notes associated to the Encounter. Date/Time Encounter Note(s) Provider Source Dec 01, 2024 07:50 AM AUDIOLOGY E & M NO TE: [facility] TITLE: AUDIOLOGY CLINIC STANDARD TITLE: AUDIOLOGY E & M NOTE DATE OF NOTE: DEC 01, 2024@07:50 ENTRY DATE: DEC 01, 2024@07:50:21 AUTHOR: ALLYSON MALAGON COSIGNER: URGENCY: STATUS: COMPLETED has a history of bilateral sensorineural hearing loss. He was seen on 12-01-24 for hearing aid follow up regarding his Oticon BLADE Rs. He requests they be turned up, more so left aid, and notes he does not hear his car running. Sound check was positive for both hearing aids. Connected to NAMITA and increased overall gain for the right aid 2 steps and the left 3. He noted improved sound quality. Bagley will contact the clinic as needed. /damaris/ Narayan OBREGON, [facility]-A STAFF ENVIRONMENTAL EDUCATION SPECIALIST Signed: 12/01/2024 08:48 ALLYSON MALAGON [facility]
--- OUTSIDE RECORDS SUMMARY | 2025-03-09 15:44 | XMS_ITS ---
Author Name [facility] [place] Organization [place] Address [address] [place] [id number] Care Team Providers Care Soc Analyst Name Role Phone HUNTER MARTINEZ Primary [...] Carmona's Name Patient's Relationship to Policy Carmona [facility] Nov [facility], 2014 01 [id number] JARRETT BARRAGAN PATIENT MEDICARE (WNR) MEDICARE (M) PART A Jul 17, 2018 PART A [id number] LAUREL,JARRETT MEJIASONY PATIENT MEDICARE (WNR) MEDICARE (M) PART B Jul 17, 2018 PART B [id number] LAUREL,JARRETT MEJIASONY PATIENT MEDICARE (WNR) MEDICARE (M) PART A Jul 17, 2018 PART A [id number] LAUREL,JARRETT [place] PATIENT MEDICARE (WNR) MEDICARE (M) PART B Jul 17, 2018 PART B [id number] LAUREL,JARRETT [place] PATIENT Selected Encounter This section includes the information on record at [place] for the Encounter. Date/Time Encounter Type Encounter Description Reason Provider Source Aug 30, 2024 03:00 PM HEARING AID FITTING/CHECKIN G AUDIOLOGY ICD-10-CM H90.3 Sensorineural hearing loss, bilateral BART MOYA [place] Encounter Template Text not used by [place] Assessments - Encounter Diagnoses This section includes the primary and secondary diagnoses documented for the Encounter. Date/Time Primary/Secondary Diagnosis Diagnosis Name Provider Source Aug 30, 2024 03:59 PM PRIMARY Sensorineural hearing loss, bilateral BART MOYA [place] [facility] [place] [facility] Aug 30, 2024 03:59 PM SECONDARY Encounter for fitting and adjustment of hearing aid BART MOYA [place] [facility] [place] [facility] Plan of Treatment: Future Appointments (+ 6 months) and Future Tests (+/- 45 days) The Plan of Treatment section includes future care activities for the patient from all [place] treatmentfacilities. This section includes future appointments and future orders which are active, pending or scheduled. Future Appointments This section includes appointments that were scheduled to occur 6 months from the date of the Encounter, up to a maximum of 20 appointments. The data comes from all [place] treatment facilities. Appointment Date/Time Appointment Type Appointme nt Facility Name Sep 01, 2024 11:00 AM AMBULATORY - NONE [place] Sep 05, 2024 08:30 AM AMBULATORY - MEDICINE [facility] [place] [facility] Sep 06, 2024 12:00 PM AMBULATORY - NONE [facility] [place] [facility] Sep 08, 2024 11:00 AM AMBULATORY - NONE [place] Sep 15, 2024 11:00 AM AMBULATORY - NONE [place] Sep 22, 2024 11:00 AM AMBULATORY - NONE [place] Sep 27, 2024 12:00 PM AMBULATORY - NONE [facility] [place] [facility] Sep 28, 2024 04:00 PM AMBULATORY - REHAB MEDICIN [facility] [place] [facility] Oct 04, 2024 03:00 PM AMB[place]ATORY - [place]ICINE [place] Oct 06, 2024 11:00 AM AMBULATORY - NONE [place] Oct 11, 2024 12:00 PM AMBULATORY - NONE [facility] [place] [facility] Oct 20, 2024 11:00 AM AMBULATORY - NONE [place] Oct 25, 2024 12:00 PM AMBULATORY - NONE [facility] [place] [facility] Oct 27, 2024 11:00 AM AMBULATORY - NONE [place] Oct 27, 2024 02:30 PM AMBULATORY - MEDICINE [facility] [place] [facility] Nov 03, 2024 09:00 AM AMBULATORY - MEDICINE [facility] [place] [facility] Nov 03, 2024 11:00 AM AMBULATORY - NONE [place] Dec 01, 2024 08:30 AM AMBULATORY - REHAB MEDICIN E [facility] [place] [facility] Dec 06, 2024 01:30 PM AMBULATORY - [...] Type Comment Aug 16, 2024 02:05 PM [place] [facility] [place] [facility] T3, FREE (QU) SERUM Specimen Type: SERUM Comment: Test Performed by Donal Stuart, [facility], [address] [place] [address] Benjamin Ortiz M.D., Ph.D., Director of Laboratories , [place] [id number] TEST PERFORMED AT: , Ordering Provider: ESTEFANI QUESADA Report Released Date/Time: Aug 16, 2024 06:36 AM Reporting Lab: [place] [facility] [place] [facility] [address] [address] Performing Lab: [place] [facility] [place] [facility] [address] [address] T3, FREE (QU) 2.3 pg/mL 2.3-4.2 Aug 16, 2024 02:05 PM [place] [facility] [place] [facility] THYROID TOTAL T4 SERUM Specimen Type: SERUM No comment entered. Ordering Provider: ESTEFANI QUESADA Report Released Date/Time: Aug 16, 2024 06:36 AM Reporting Lab: [facility] [address] [address] Performing Lab: [facility]ITALUS[facility] [address] [facility] [address] THYROID TOTAL T4 7.92 ug/dL 4.5-12.0 Aug 16, 2024 02:05 PM [facility] TSH SERUM Specimen Type: SERUM No comment entered. Ordering Provider: ESTEFANI QUESADA Report Released Date/Time: Aug 16, 2024 06:36 AM Reporting Lab: [facility]ITALRHARTSELLE MEDICAL CENTERTRN [facility]ITALUSEBATAV[facility] [address] [address] Performing Lab: [facility]ITAL[facility] HOSPITALUSETS [facility] [address] [facility] [address] TSH 0.98 u[IU]/mL 0.35-5.00 Social History: Smoking Status (Most current) and Tobacco Use (All prior to encounter date) This section includes the most current, and the historical, smoking and tobacco- related health factors from the [place] facility where the Encounter took place. Current Smoking Status This section includes the most current smoking, or tobacco-related health factor, from the [place] facility where the Encounter took place. Date/Time Current Smoking Status Comment Facil ity Dec 10, 2023 01:11 PM VA-TOBACCO NEVER USED [facility] Advance Directives: All historical and current Section Date Range: From patient's date of to the date document was created. This section includes ALL of a patient's completed or amended [place] Advance and Rescinded Directives. The entries below indicate that a directive exists for the patient, but an actual copy is not included with this document. The data comes from all [place] facilities. Date Advance Directives Provider Source Aug 07, 2015 ADVANCE DIRECTIVE BEN BERNABE Encounter Notes: All associated encounter notes This section contains the clinical notes associated to the Encounter. Date/Time Encounter Note(s) Provider Source Aug 30, 2024 07:46 AM AUDIOLOGY E & M NOTE: LOCAL TITLE: AUDIOLOGY CLINIC STANDARD TITLE: AUDIOLOGY E & M NOTE DATE OF NOTE: AUG 30, 2024@07:46 ENTRY DATE: AUG 30, 2024@07:46:42 AUTHOR: GEOVANY MOYA COSIGNER: URGENCY: STATUS: COMPLETED AUDIOLOGY CLINIC Has ADDENDA Dx CODE: H90.3-Sensorineural Hearing Loss, Bilateral APPOINTMENT TYPE: Hearing Re-Evaluation and Hearing Aid Selection BACKGROUND/HISTORY: [place] was seen 08/30/24 for a hearing re-evaluation and hearing aid selection appointment, unaccompanied. He was fit with Phonak Musicshakeeo [id number] RICs on 12/26/20, and reports his left earmold broke. [facility] due to the age of the current devices. His last hearing evaluation was on 11/28/20 and he believes his hearing has declined since then. He reports occasional bilateral tinnitus which he describes as a buzzing sound. He denies concerns of vertigo. ASSESMENT: Results of today's testing are as follows: Otoscopy was WNL bilaterally. Normal tympanograms obtained bilaterally. Pure tone audiometric testing under headphones in the right ear revealed hearing WNL through 500 Hz with a mild sloping to severe SNHL. Testing in the left ear revealed a moderate sloping to severe SNHL 250-8000Hz. Stable asymmetry, left ear poorer. SRT WORD RECOGNITION (Recorded [place] CNC 1/2 Word List) Right 25dBHL 84% @ 70dBHL/50dBm Left 55dBHL 68% @ 85dBHL/65dBm No significant changes were found when compared to the 11/28/20 audiological evaluation. HEARING AID CHECK: Both hearing aids were cleaned and checked, and found to be in good working order. Microphone covers were suctioned. The left canal lock broke off earmold. Earmold was buffed smooth and a new earmold was ordered to be attached at upcoming HAF appointment. Hearing aids were connected to [employer] and a firmware update was completed. HEARING AID SELECTION: Different hearing aid options were discussed. He is interested in rechargeable technology similar to his previous hearing aids. He does not have a pacemaker. He will not be utilizing [employer] technology at this time. Oticon Intent 1 miniRITE-Rs were selected and ordered in [place]. Impressions were taken without incident and with 's verbal consent for canal lock earmolds. EDUCATION/COUNSELING: The patient was counseled re: today's hearing test results. He demonstrated satisfactory understanding of the education and plan, and was given the opportunity to ask questions throughout today's visit. PLAN: 1. RTC on 09/28/24 at 4PM for 60 minute hearing aid fitting appointment. 2. When left Phonak earmold arrives, it can be placed with new hearing aids for upcoming HAF appointment. 3. Hearing re-evaluation in 3-5 years, or sooner if change in hearing occurs. * Patient Education Education provided on the following topics: Hearing test results Education provided to: P Response to Education: VU Cloud Patient P Family F Significant Other SO Verbalizes Understanding VU Returns Demonstration RD Performs Independently PI Lacks Comprehension LC Refused Education RE Not Applicable NA * /damaris/ GEOVANY MOYA STAFF MORALE OFFICER Signed: 08/30/2024 15:59 Receipt Acknowledged By: 08/31/2024 07:34 /damaris/ PRIMO CHANDLER LEAD CASINO CONTROLLER 09/08/2024 ADDENDUM STATUS: COMPLETED Hearing aids received and certified, upcoming appointment scheduled on 09/28/2024. /damaris/ CARYL BARR Audiology Health Coat Operator Signed: 09/08/2024 08:15 09/08/2024 ADDENDUM STATUS: COMPLETED Left earmold received and certified, placed with hearing aids for upcoming appointment. /es/ CARYL BARR Audiology Health Coat Operator Signed: 09/08/2024 14:56 GEOVANY MOYARL [facility]
--- OUTSIDE RECORDS SUMMARY | 2025-03-09 15:44 | XMS_ITS | Encounter Summary ---
Author Name [facility] [place] Organization [facility] [place] Address [address] [place] [address] Care Team Providers Care Cost Accounting Clerk Name Role Phone HUNTER MARTINEZ Primary Care [...] [place] H Nov 16, 2014 01 [phone] JARRETT BARRAGAN PATIENT MEDICARE (WNR) MEDICARE (M) PART A Jul 17, 2018 PART A [id number] LAUREL,JARRETT DE [place] PATIENT MEDICARE (WNR) MEDICARE (M) PART B Jul 17, 2018 PART B [id number] LAUREL,JARRETT MEJIASONY PATIENT MEDICARE (WNR) MEDICARE (M) PART A Jul 17, 2018 PART A [id number] [id number] LAUREL,JARRETT MEJIASONY PATIENT MEDICARE (WNR) MEDICARE (M) PART B Jul 17, 2018 PART B [id number] LAUREL,JARRETT [place] PATIENT Selected Encounter This section includes the information on record at [place] for the Encounter. Date/Time Encounter Type Encounter Description Reason Pro vider Source Jul 28, 2024 01:00 PM Outpatient Encounter CLINICAL PHARMACY [facility] Encounter Template Text not used by [place] Plan of Treatment: Future Appointments (+ 6 months) and Future Tests (+/- 45 days) The Plan of Treatment section includes future care activities for the [facility] [place] [facility] This section includes future appointments and future orders which are active, pending or scheduled. Future Appointments This section includes appointments that were scheduled to occur 6 months from the date of the Encounter, up to a maximum of 20 appointments. The data comes from all [place] treatment facilities. Appointment Date/Time Appointment Type Appointme nt Facility Name Aug 09, 2024 12:00 PM AM[facility]UL[facility]ORY [facility] NONE [facility] [place] [facility] Aug 11, 2024 11:00 AM AM[facility]ULATORY - NONE [place] Aug 17, 2024 03:00 PM AMBULATORY - MEDICINE [facility] [place] [facility] Aug 18, 2024 11:00 AM AMBULATORY - NONE [place] Aug 23, 2024 12:00 PM AMBULATORY - NONE [facility] [place] [facility] Aug 25, 2024 11:00 AM AMBULATORY - NONE [place] Aug 30, 2024 03:00 PM AMBULATORY - REHAB MEDICIN E [facility] [place] [facility] Sep 01, 2024 11:00 AM AMBULATORY - NONE [place] Sep 05, 2024 08:30 AM AM[facility]UL[facility] [place] [facility] Sep 06, 2024 12:00 PM AMBULATORY - NONE [facility] [place] [facility] Sep 08, 2024 11:00 AM AMBULATORY - NONE [place] Sep 15, 2024 11:00 AM AMBULATORY - NONE [place] Sep 22, 2024 11:00 AM AMBULATORY - NONE [place] Sep 27, 2024 12:00 PM AMBULATORY - NONE [facility] [place] [facility] Sep 28, 2024 04:00 PM AMBULATORY - REHAB MEDICIN E [facility] [place] [facility] Oct 04, 2024 03:00 PM AMBULATORY - MED[facility] Oct 06, 2024 11:00 AM AMBULATORY - NONE [place] Oct 11, 2024 12:00 PM AMBULATORY - NONE [facility] [place] [facility] Oct 20, 2024 11:00 AM AMBULATORY - NONE [facility] Oct 25, 2024 12:00 PM [facility] - NONE [facility] Lab Results: +/- 30 days of [...] Comment Aug 16, 2024 02:05 PM [facility] T3, FREE (QU) SERUM Specimen Type: SERUM Comment: Test Performed by [employer] [facility], [address] [place] [address] Benjamin Ortiz M.D., Ph.D., Director of Laboratories , [place] [id number] TEST PERFORMED AT: , Ordering Provider: ESTEFANI QUESADA Report Released Date/Time: Aug 16, 2024 06:36 AM Reporting Lab: [facility] [address] [facility] [address] Performing Lab: [facility] [address] [address] T3, FREE (QU) 2.3 pg/mL 2.3-4.2 Aug 16, 2024 02:05 PM [facility] THYROID TOTAL T4 SERUM Specimen Type: SERUM No comment entered. Ordering Provider: ESTEFANI QUESADA Report Released Date/Time: Aug 16, 2024 06:36 AM Reporting Lab: [facility] [address] [facility] [address] Performing Lab: [facility] [address] [facility] [address] THYROID TOTAL T4 7.92 ug/dL 4.5-12.0 Aug 16, 2024 02:05 PM [facility] TSH SERUM Specimen Type: SERUM No comment entered. Ordering Provider: ESTEFANI QUESADA Report Released Date/Time: Aug 16, 2024 06:36 AM Reporting Lab: [facility] [address] [address] Performing Lab: [place] [facility] [address] [address] TSH 0.98 u[IU]/mL 0.35-5.00 Jul 05, 2024 01:32 PM [place] MICROALBUMIN CREATININE RATIO PANEL URINE Specimen Type: URINE No comment entered. Ordering Provider: HUNTER MARTINEZ Report Released Date/Time: Jul 05, 2024 01:19 PM Reporting Lab: [facility] [address] Performing Lab: [facility] [address] [address] MICROALBUMIN/CREATININE RATIO canc mg/g 0-29.9 MICROALBUMIN,QUANTITATIVE < 0.5 mg/dL RR UNAVAIL CREATININE URINE 19.74 mg/dL Jul 05, 2024 01:24 PM [place] TSH SERUM Sp ecimen Type: SERUM No comment entered. Ordering Provider: HUNTER MARTINEZ Report Released Date/Time: Jul 05, 2024 01:19 PM Reporting Lab: [facility] [address] Performing Lab: [place] [facility] [address] [address] TSH 0.25 u[IU]/mL L 0.35-5.00 Jul 05, 2024 01:24 PM [place] VITAMIN D (25-OH) SERUM Specimen Type: SERUM No comment entered. Ordering Provider: HUNTER MARTINEZ Report Released Date/Time: Jul 05, 2024 01:19 PM Reporting Lab: [facility] [address] [address] Performing Lab: [facility] [address] VITAMIN D (25-OH) 27 ng/mL 20-50 Jul 05, 2024 01:24 PM [place] BASIC METABOLIC PANEL (non-fasting) SERUM Specimen Type: SERUM No comment entered. Ordering Provider: HUNTER MARTINEZ Report Released Date/Time: Jul 05, 2024 01:19 PM Reporting Lab: [address] [address] Performing Lab: [address] [address] [place]A NITROGEN 22 mg/dL 7-25 GLUCOSE 105 mg/dL H 65-100 SODIUM 134 mmol/L L 135-145 POTASSIUM 4.5 mmol/L 3.5-5.0 CHLORIDE 101 mmol/L 100-110 CO2 23 meq/L 20-30 CREATININE, Serum 0.92 mg/dL 0.50-1.40 eGFR(CKD-EPI 2020) 89 mL/min >60 Jul 05, 2024 01:24 PM [place] CBC BLOOD Sp ecimen Type: BLOOD No comment entered. Ordering Provider: HUNTER MARTINEZ Report Released Date/Time: Jul 05, 2024 01:19 PM Reporting Lab: [address] [address] Performing Lab: [address] [address] WBC 6.07 10*3/uL 4.50-11.00 RBC 4.77 10*6/uL 4.23-5.66 HGB 14.8 g/dL 12.8-17 HCT 44.1 39.2-50.4 MCV 92.5 fL 82-99 MCHC 33.6 g/dL 30.8-35.1 PLT 242 10*3/uL 140-360 RDW-CV 13.6 12.0-16.0 MCH 31.0 pg 26.2-32.6 Social History: Smoking Status (Most current) and Tobacco Use (All prior to encounter date) This section includes the most current, and the historical, smoking and tobacco- related health factors from the [place] facility where the Encounter took place. Current Smoking Status This section includes the most current smoking, or tobacco-related health factor, from the [place] facility where the Encounter took place. Date/Time Current Smoking Status Comment Otf hamm May 27, 2022 09:30 AM [place]-TOBACCO NEVER USED [place] Tobacco Use History This section includes a history of the smoking, or tobacco-related health factors, that were collected on or before the date of the Encounter. The data comes from the [place] facility where the Encounter took place. Date/Time Smoking Status/Tobacco Use Comment Priti acmorro Jan 11, 2020 10:38 AM [facility]-TOBACCO NEVER USED [place] Jan 25, 2019 01:47 PM VA-TOBACCO NEVER USED [place] Feb 04, 2018 01:53 PM LIFETIME NON-TOBACCO USER [place] Feb 04, 2017 10:10 AM LIFETIME NON-TOBACCO USER [place] Jul 12, 2015 08:31 AM LIFETIME NON-TOBACCO USER [place] Advance Directives: All historical and current Section Date Range: From patient's date of to the date document was created. This section includes ALL of a patient's completed or amended [place] Advance and Rescinded Directives. The entries below indicate that a directive exists for the patient, but an actual copy is not included with this document. The data comes from all [facility]. Date Advance Directives Provider Source Aug 07, 2015 ADVANCE DIRECTIVE BEN BERNABE [facility] Encounter Notes: All associated encounter notes This section contains the clinical notes associated to the Encounter. Date/Time Encounter Note(s) Provider Source Jul 28, 2024 03:26 PM CLERICAL NOTE: LOCAL TITLE: APPOINTMENT NO SHOW STANDARD TITLE: CLERICAL NOTE DATE OF NOTE: JUL 28, 2024@15:26 ENTRY DATE: JUL 28, 2024@15:26:57 AUTHOR: ADIEL THOMPSON COSIGNER: URGENCY: STATUS: COMPLETED APPOINTMENT NO SHOW Has ADDENDA Patient Name: JUSTIN BARRAGAN Patient SSN: [id number] Date and time of Appointment No show : 07/28/24 13:00 PATIENT PHONE - PHONE NUMBER [CELLULAR] - Patient's medical record was reviewed. Follow-up actions were determined and initiated: Please check/complete as applies: [X]Telephoned Directly [ ]Re-scheduled for next available appt [ ]Sent a N0-show letter ( must call for appointment) [ ]Other (Emergent/Overbook, etc.): Additional Comments: will ask msa to kindly contact and offer to r/s cwm/so/pharm/pact 2 thank you Future Clinic Visits 09/05/2024 08:30 CWM/NO/OPTOMETRY/MERHAR 10/04/2024 15:00 C[facility]/SO/PODIATRY/ROSS 12/06/2024 13:30 CWM/SO/PACT 1 ZOO CARETAKER /damaris/ ADIEL THOMPSON CLINICAL FORM TAMPER Signed: 07/28/2024 15:27 Receipt Acknowledged By: 08/01/2024 10:46 /damaris/ CONY DE LA ROSA ADVANCE RUBBER [employer] SUPERVISOR 08/01/2024 ADDENDUM STATUS: COMPLETED THIS DRYWALL HANGER WAS LAMAR TO REACH LMOM TO CALL BACK NO-SHOW LETTER SENT /damaris/ CONY DE LA ROSA ADVANCE RUBBER [employer] TUB[employer] SUPERVISOR Signed: 08/01/2024 10:45 ADIEL THOMPSONFIELD
--- OUTSIDE RECORDS SUMMARY | 2025-03-09 15:44 | XMS_ITS ---
Author Name [facility] [place] Organization [place] Address [address] [place] [address] Care Team Providers Care Playground Director Name Role Phone HUNTER MARTINEZ Primary [...] Carmona's Name Patient's Relationship to Policy Carmona [facility] MEDICAID [facility] Nov 16, 2014 01 [id number] LAUREL,JARRETT DE [place] PATIENT MEDICARE (WNR) MEDICARE (M) PART B Jul 17, 2018 PART B [id number] LAUREL,AN WIL PATIENT MEDICARE (WNR) MEDICARE (M) PART A Jul 17, 2018 PART A [id number] LAUREL,AN WIL PATIENT MEDICARE (WNR) MEDICARE (M) PART A Jul 17, 2018 PART A [id number] LAUREL,JARRETT MEJIASONY PATIENT MEDICARE (WNR) MEDICARE (M) PART B Jul 17, 2018 PART B [id number] LAUREL,JARRETT [place] PATIENT Selected Encounter This section includes the information on record at [place] for the Encounter. Date/Time Encounter Type Encounter Description Reason Pro vider Source Jul 31, 2024 12:56 PM Outpatient Encounter ADMIN PAT ACTIVTIES (SUNGNONCT) IHE Encounter Template Text not used by [place] Plan of Treatment: Future Appointments (+ 6 months) and Future Tests (+/- 45 days) The Plan of Treatment section includes future care activities for the patient from all [place] treatmentfacilities. This section includes future appointments and future orders which are active, pending or scheduled. Future Appointments This section includes appointments that were scheduled to occur 6 months from the date of the Encounter, up to a maximum of 20 appointments. The data comes from all [place] treatment facilities. Appointment Date/Time Appointment Type Appointme nt Facility Name Aug 09, 2024 12:00 PM AMBULATORY - NONE [facility] [place] [facility] Aug 11, 2024 11:00 AM AM[facility]ATORY - NONE [place] Aug 17, 2024 03:00 PM AMBULATORY - MEDICINE [facility] [place] [facility] Aug 18, 2024 11:00 AM AMBULATORY - NONE [place] Aug 23, 2024 12:00 PM AMBULATORY - NONE [facility] [place] [facility] Aug 25, 2024 11:00 AM AMBULATORY - NONE [place] Aug 30, 2024 03:00 PM AMBULATORY - REHAB MEDICIN E [facility] [place] [facility] Sep 01, 2024 11:00 AM AMBULATORY - NONE [place] Sep 05, 2024 08:30 AM AMBULATORY - MEDICINE [facility] [place] [facility] Sep 06, 2024 12:00 PM AMBULATORY - NONE [facility] [place] [facility] Sep 08, 2024 11:00 AM AMBULATORY - NONE [place] Sep 15, 2024 11:00 AM AMBULATORY - NONE [place] Sep 22, 2024 11:00 AM AMBULATORY - NONE [place] Sep 27, 2024 12:00 PM AMBULATORY - NONE [facility] [place] [facility] Sep 28, 2024 04:00 PM AMBULATORY - REHAB MEDICIN E [facility] [place] [facility] Oct 04, 2024 03:00 PM [facility] Oct 06, 2024 11:00 AM AMBULATORY - NONE [place] Oct 11, 2024 12:00 PM AMBULATORY - NONE [place] [facility] [place] [facility] Oct 20, 2024 11:00 AM AMBULATORY - NONE [place] Oct 25, 2024 12:00 PM [facility] - NONE [facility] Lab Results: +/- 30 days of [...] Type Comment Aug 16, 2024 02:05 PM [facility] T3, FREE (QU) SERUM Specimen Type: SERUM Comment: Test Performed by Before the [facility], [facility], [address] [place] [address] Benjamin Ortiz M.D., Ph.D., Director of Laboratories , [facility] [id number] TEST PERFORMED AT: , Ordering Provider: ESTEFANI QUESADA Report Released Date/Time: Aug 16, 2024 06:36 AM Reporting Lab: [facility] [place] [facility] [address] [facility] [address] Performing Lab: [facility] [place] [facility] [address] [address] T3, FREE (QU) 2.3 pg/mL 2.3-4.2 Aug 16, 2024 02:05 PM [facility] THYROID TOTAL T4 SERUM Specimen Type: SERUM No comment entered. Ordering Provider: ESTEFANI QUESADA Report Released Date/Time: Aug 16, 2024 06:36 AM Reporting Lab: [facility] [place] [facility] [address] [facility] [address] Performing Lab: [facility] [address] [facility] [address] THYROID TOTAL T4 7.92 ug/dL 4.5-12.0 Aug 16, 2024 02:05 PM [facility] TSH SERUM Specimen Type: SERUM No comment entered. Ordering Provider: ESTEFANI QUESADA Report Released Date/Time: Aug 16, 2024 06:36 AM Reporting Lab: [facility] [address] [facility] [address] Performing Lab: [facility] [address] [facility] [address] TSH 0.98 u[IU]/mL 0.35-5.00 Jul 05, 2024 01:32 PM [facility] MICROALBUMIN CREATININE RATIO PANEL URINE Specimen Type: URINE No comment entered. Ordering Provider: HUNTER MARTINEZ Report Released Date/Time: Jul 05, 2024 01:19 PM Reporting Lab: [facility] [address] [facility] [address] Performing Lab: [facility] [address] [address] MICROALBUMIN/CREATININE RATIO canc mg/g 0-29.9 MICROALBUMIN,QUANTITATIVE < 0.5 mg/dL RR UNAVAIL CREATININE URINE 19.74 mg/dL Jul 05, 2024 01:24 PM [facility] TSH SERUM Sp ecimen Type: SERUM No comment entered. Ordering Provider: HUNTER MARTINEZ Report Released Date/Time: Jul 05, 2024 01:19 PM Reporting Lab: [facility] [address] [facility] [address] Performing Lab: [facility] [address] [facility] [address] TSH 0.25 u[IU]/mL L 0.35-5.00 Jul 05, 2024 01:24 PM [facility] VITAMIN D (25-OH) SERUM Specimen Type: SERUM No comment entered. Ordering Provider: HUNTER MARTINEZ Report Released Date/Time: Jul 05, 2024 01:19 PM Reporting Lab: [facility] [address] [facility] [address] Performing Lab: [facility]ITALRBAPT[facility]N [facility]USE[address] [address] VITAMIN D (25-OH) 27 ng/mL 20-50 Jul 05, 2024 01:24 PM [facility] BASIC METABOLIC PANEL (non-fasting) SERUM Specimen Type: SERUM No comment entered. Ordering Provider: HUNTER MARTINEZ Report Released Date/Time: Jul 05, 2024 01:19 PM Reporting Lab: [address] [address] Performing Lab: [address] [address] UREA NITROGEN 22 mg/dL 7-25 GLUCOSE 105 mg/dL H 65-100 SODIUM 134 mmol/L L 135-145 POTASSIUM 4.5 mmol/L 3.5-5.0 CHLORIDE 101 mmol/L 100-110 CO2 23 meq/L 20-30 CREATININE, Serum 0.92 mg/dL 0.50-1.40 eGFR(CKD-EPI 2020) 89 mL/min >60 Jul 05, 2024 01:24 PM [facility] CBC BLOOD Sp ecimen Type: BLOOD No comment entered. Ordering Provider: HUNTER MARTINEZ Report Released Date/Time: Jul 05, 2024 01:19 PM Reporting Lab: [address] [address] Performing Lab: [address] [address] WBC 6.07 10*3/uL 4.50-11.00 RBC 4.77 10*6/uL [...] and tobacco- related health factors from the [place] facility where the Encounter took place. Current Smoking Status This section includes the most current smoking, or tobacco-related health factor, from the [place] facility where the Encounter took place. Date/Time Current Smoking Status Comment Facil [facility] Dec 10, 2023 01:11 PM VA-TOBACCO NEVER USED [facility] [place] [facility] Advance Directives: All historical and current Section Date Range: From patient's date of to the date document was created. This section includes ALL of a patient's completed or amended VA Advance and Rescinded Directives. The entries below indicate that a directive exists for the patient, but an actual copy is not included with this document. The data comes from all [place] facilities. Date Advance Directives Provider Source Aug 07, 2015 ADVANCE DIRECTIVE [facility] Encounter Notes: All associated encounter notes This section contains the clinical notes associated to the Encounter. Date/Time Encounter Note(s) Provider Source Aug 23, 2024 08:24 AM ADDENDUM: LOCAL TITLE: Addendum STANDARD TITLE: ADDENDUM DATE OF NOTE: AUG 23, 2024@08:24:10 ENTRY DATE: AUG 23, 2024@08:24:11 AUTHOR: HUNTER MARTINEZ EXP COSIGNER: URGENCY: STATUS: COMPLETED TSH normal. Medication renewed per request. /damaris/ HUNTER MARTINEZ NP NURSE PRACTITIONER Signed: 08/23/2024 08:24 Receipt Acknowledged By: 08/23/2024 13:37 /damaris/ JIHAN MCNAMARA LPN LPN ====== --- Original Document --- 07/31/24 PHARMACY CUSTOMER CARE MEDICATION RENEWAL: Date: Jul Division: [facility] referred by Pharmacy Call Center for medication renewal: Non-controlled/maintenan ce medication Medications requested: [id number] LEVOTHYROXINE NA (SYNTHROID) 150MCG TAB Defer to primary care provider To be mailed . Please review and renew if appropriate. *This note was generated by [facility]/[place] Pharmacy Customer Care. If you have any questions or need assistance, do not contact this author. Please refer all questions to your local, on-site pharmacy departments. /damaris/ Harley Roque CPhT Station Installer, [place]/Pharmacy Customer Care Signed: 07/31/2024 12:57 Receipt Acknowledged By: 08/23/2024 08:22 /damaris/ HUNTER MARTINEZ NP NURSE PRACTITIONER 08/02/2024 15:15 /damaris/ TERESE MAYER RN REGISTERED NURSE 08/16/2024 ADDENDUM STATUS: COMPLETED Vet's last TSH 07/05/24 was 0.25L. Pls have vet come in to check TSH to determine if med titration is needed. Thank you. /damaris/ ESTEFANI QUESADA NP NURSE PRACTITIONER Signed: 08/16/2024 06:34 Receipt Acknowledged By: 08/16/2024 09:18 /damaris/ JIHAN MCNAMARA LPN LPN 08/16/2024 11:00 /damaris/ TERESE MAYER RN REGISTERED NURSE 08/16/2024 ADDENDUM STATUS: COMPLETED called and notified of message. states he will come in today to [facility] to complete labs. /lindsay MCNAMARA LPN LPN Signed: 08/16/2024 09:19 HUNTER MARTINEZ [facility] Aug 16, 2024 06:32 AM ADDENDUM: LOCAL TITLE: Addendum STANDARD TITLE: ADDENDUM DATE OF NOTE: AUG 16, 2024@06:32:59 ENTRY DATE: AUG 16, 2024@06:33 AUTHOR: ESTEFANI QUESADA COSIGNER: URGENCY: STATUS: COMPLETED Vet's last TSH 07/05/24 was 0.25L. Pls have vet come in to check TSH to determine if med titration is needed. Thank you. /lindsay QUESADA NP NURSE PRACTITIONER Signed: 08/16/2024 06:34 Receipt Acknowledged By: 08/16/2024 09:18 /lindsay MCNAMARA LPN LPN 08/16/2024 11:00 /damaris/ TERESE MAYER RN REGISTERED NURSE ====== --- Original Document --- 07/31/24 V1 PHARMACY CUSTOMER CARE MEDICATION RENEWAL: Date: Jul Division: [facility] referred by Pharmacy Call Center for medication renewal: Non-controlled/maintenan ce medication Medications requested: [id number] LEVOTHYROXINE NA (SYNTHROID) 150MCG TAB Defer to primary care provider To be mailed . Please review and renew if appropriate. *This note was generated by [facility] Pharmacy Customer Care. If you have any questions or need assistance, do not contact this author. Please refer all questions to your local, on-site pharmacy departments. /es/ Harley Roque CPhT Station Installer, [place]/Pharmacy Customer Care Signed: 07/31/2024 12:57 Receipt Acknowledged By: * AWAITING SIGNATURE * HUNTER MARTINEZ 08/02/2024 15:15 /es/ TERESE MAYER RN REGISTERED NURSE 08/16/2024 ADDENDUM STATUS: COMPLETED called and notified of message. states he will come in today to [facility] to complete labs. /damaris/ JIHAN MCNAMARA LPN LPN Signed: 08/16/2024 09:19 ESTEFANI QUESADA NATE [place] [facility] [place] [facility] Jul 31, 2024 12:56 PM PHARMACY NOTE: LOCAL TITLE: V1 PHARMACY CUSTOMER CARE MEDICATION RENEWAL STANDARD TITLE: PHARMACY NOTE DATE OF NOTE: JUL 31, 2024@12:56 ENTRY DATE: JUL 31, 2024@12:56:50 AUTHOR: HARLEY ROQUE I EXP COSIGNER: URGENCY: STATUS: COMPLETED V1 PHARMACY CUSTOMER CARE MEDICATION RENEWAL Has ADDENDA Date: Jul Division: [facility] referred by Pharmacy Call Center for medication renewal: Non-controlled/maintenan ce medication Medications requested: [id number] LEVOTHYROXINE NA (SYNTHROID) 150MCG TAB Defer to primary care provider To be mailed . Please review and renew if appropriate. *This note was generated by [facility] Pharmacy Customer Care. If you have any questions or need assistance, do not contact this author. Please refer all questions to your local, on-site pharmacy departments. /damaris/ Harley Roque CPhT Station Installer, [place]/Pharmacy Customer Care Signed: 07/31/2024 12:57 Receipt Acknowledged By: 08/23/2024 08:22 /damaris/ HUNTER MARTINEZ NP NURSE PRACTITIONER 08/02/2024 15:15 /damaris/ TERESE MAYER RN REGISTERED NURSE 08/16/2024 ADDENDUM STATUS: COMPLETED Vet's last TSH 07/05/24 was 0.25L. Pls have vet come in to check TSH to determine if med titration is needed. Thank you. /damaris/ ESTEFANI QUESADA NP NURSE PRACTITIONER Signed: 08/16/2024 06:34 Receipt Acknowledged By: 08/16/2024 09:18 /damaris/ JIHAN MCNAMARA LPN LPN 08/16/2024 11:00 /damaris/ TERESE MAYER RN REGISTERED NURSE 08/16/2024 ADDENDUM STATUS: COMPLETED called and notified of message. states he will come in today to [facility] to complete labs. /damaris/ JIHAN MCNAMARA LPN LPN Signed: 08/16/2024 09:19 08/23/2024 ADDENDUM STATUS: COMPLETED TSH normal. Medication renewed per request. /damaris/ HUNTER MARTINEZ NP NURSE PRACTITIONER Signed: 08/23/2024 08:24 Receipt Acknowledged By: * AWAITING SIGNATURE * JIHAN MCNAMARA [facility]
--- OUTSIDE RECORDS SUMMARY | 2025-03-09 15:44 | XMS_ITS ---
Author Name [facility] [place] Address [address] [place] [address] Care Team Providers Care Wine Blender Name Role Phone HUNTER MARTINEZ Primary Care [...] Carmona's Name Patient's Relationship to Policy Carmona [facility] MEDICAID [facility] Nov 16, 2014 01 [id number] LAUREL,JARRETT DE [place] PATIENT MEDICARE (WNR) MEDICARE (M) PART A Jul 17, 2018 PART A [id number] LAUREL,JARRETT MEJIASONY PATIENT MEDICARE (WNR) MEDICARE (M) PART B Jul 17, 2018 PART B [id number] LAUREL,JARRETT MEJIASONY PATIENT MEDICARE (WNR) MEDICARE (M) PART A Jul 17, 2018 PART A [id number] LAUREL,JARRETT MEJIASONY PATIENT MEDICARE (WNR) MEDICARE (M) PART B Jul 17, 2018 PART B [id number] LAUREL,JARRETT DE [place] PATIENT Selected Encounter This section includes the information on record at [place] for the Encounter. Date/Time Encounter Type Encounter Description Reason Pro vider Source Jul 10, 2024 08:47 AM Outpatient Encounter ADMIN PAT ACTIVTIES (MEGAN) IHE Encounter Template Text not used by VA Plan of Treatment: Future Appointments (+ 6 months) and Future Tests (+/- 45 days) The Plan of Treatment section includes future care activities for the patient from all [place] treatmentfacilities. This section includes future appointments and future orders which are active, pending or scheduled. Future Appointments This section includes appointments that were scheduled to occur 6 months from the date of the Encounter, up to a maximum of 20 appointments. The data comes from all [place] treatment facilities. Appointment Date/Time Appointment Type Appointme nt Facility Name Jul 12, 2024 12:00 PM AMBULATORY - NONE [facility] [place] [facility] Jul 14, 2024 11:00 AM AMBULATORY - NONE [place] Jul 21, 2024 11:00 AM AMBULATORY - NONE [place] Jul 26, 2024 12:00 PM AMBULATORY - NONE [facility] [place] [facility] Jul 28, 2024 01:00 PM AMBULATORY - MEDICINE [facility] [place] [facility] Aug 09, 2024 12:00 PM AMBULATORY - NONE [facility] [place] [facility] Aug 11, 2024 11:00 AM AMBULATORY - NONE [place] Aug 17, 2024 03:00 PM AMBULATORY - MEDICINE [facility] [place] [facility] Aug 18, 2024 11:00 AM AMBULATORY - NONE [place] Aug 23, 2024 12:00 PM AMBULATORY - NONE [facility] [place] [facility] Aug 25, 2024 11:00 AM AMBULATORY - NONE [place] Aug 30, 2024 03:00 PM AMBULATORY - REHAB MEDICIN E [facility] [place] [facility] Sep 01, 2024 11:00 AM AMBULATORY - NONE [place] Sep 05, 2024 08:30 AM AMBULATORY - MEDICINE [facility] [place] [facility] Sep 06, 2024 12:00 PM AMBULATORY - NONE [facility] [place] [facility] Sep 08, 2024 11:00 AM AMBULATORY - NONE [place] Sep 15, 2024 11:00 AM AMBULATORY - NONE [place] Sep 22, 2024 11:00 AM AMBULATORY - NONE [place] Sep 27, 2024 12:00 PM AMBULATORY - NONE [facility] [place] [facility] Sep 28, 2024 04:00 PM AMBULATORY - [facility]AB [facility]ICIN E [facility] Lab Results: +/- 30 days of the encounter This section includes the Chemistry and Hematology Lab Results on record with [place] for the patient. Radiology Reports and Pathology Reports are provided separately, in subsequent sections. Lab Results This section contains the Chemistry/Hematology Results that were resulted 30 days before or 30 daysafter the date of the Encounter. Date/Time Source Result Type Result - Unit Interpretation Reference Range Specimen Type Comment Jul 05, 2024 01:32 PM [place] MICROALBUMIN CREATININE RATIO PANEL URINE Specimen Type: URINE No comment entered. Ordering Provider: HUNTER MARTINEZ Report Released Date/Time: Jul 05, 2024 01:19 PM Reporting [facility] [address] [address] Performing Lab: [facility] [address] MICROALBUMIN/CREATININE RATIO canc mg/g 0-29.9 MICROALBUMIN,QUANTITATIVE < 0.5 mg/dL RR UNAVAIL CREATININE URINE 19.74 mg/dL Jul 05, 2024 01:24 PM [place] TSH SERUM Sp ecimen Type: SERUM No comment entered. Ordering Provider: HUNTER MARTINEZ Report Released Date/Time: Jul 05, 2024 01:19 PM Reporting Lab: [facility] [place] [address] [address] Performing Lab: [facility] [place] [address] [address] TSH 0.25 u[IU]/mL L 0.35-5.00 Jul 05, 2024 01:24 PM [place] VITAMIN D (25-OH) SERUM Specimen Type: SERUM No comment entered. Ordering Provider: HUNTER MARTINEZ Report Released Date/Time: Jul 05, 2024 01:19 PM Reporting Lab: [facility] [address] Performing Lab: [address] [address] VITAMIN D (25-OH) 27 ng/mL 20-50 Jul 05, 2024 01:24 PM [place] BASIC METABOLIC PANEL (non-fasting) SERUM Specimen Type: SERUM No comment entered. Ordering Provider: HUNTER MARTINEZ Report Released Date/Time: Jul 05, 2024 01:19 PM Reporting Lab: [address] [address] Performing Lab: [address] [address] UREA NITROGEN 22 mg/dL 7-25 GLUCOSE 105 mg/dL H 65-100 SODIUM 134 mmol/L L 135-145 POTASSIUM 4.5 mmol/L 3.5-5.0 CHLORIDE 101 mmol/L 100-110 CO2 23 meq/L 20-30 CREATININE, Serum 0.92 mg/dL 0.50-1.40 eGFR(CKD-EPI 2020) 89 mL/min >60 Jul 05, 2024 01:24 PM [place] CBC BLOOD Sp ecimen Type: BLOOD No comment entered. Ordering Provider: HUNTER MARTINEZ Report Released Date/Time: Jul 05, 2024 01:19 PM Reporting Lab: [address] [address] Performing Lab: [address] [address] WBC 6.07 10*3/uL 4.50-11.00 RBC 4.77 10*6/uL [...] and tobacco- related health factors from the [place] facility where the Encounter took place. Current Smoking Status This section includes the most current smoking, or tobacco-related health factor, from the [place] facility where the Encounter took place. Date/Time Current Smoking Status Comment Otf hamm Dec 10, 2023 01:11 PM VA-TOBACCO NEVER USED [facility] Advance Directives: All historical and current Section Date Range: From patient's date of to the date document was created. This section includes ALL of a patient's completed or amended VA Advance and Rescinded Directives. The entries below indicate that a directive exists for the patient, but an actual copy is not included with this document. The data comes from all [place] facilities. Date Advance Directives Provider Source Aug 07, 2015 ADVANCE DIRECTIVE FLORECITABENDYLAN BARNARD Encounter Notes: All associated encounter notes This section contains the clinical notes associated to the Encounter. Date/Time Encounter Note(s) Provider Source Jul 10, 2024 08:47 AM PHARMACY NOTE: LOCAL TITLE: V1 PHARMACY CUSTOMER CARE MEDICATION RENEWAL STANDARD TITLE: PHARMACY NOTE DATE OF NOTE: JUL 10, 2024@08:47 ENTRY DATE: JUL 10, 2024@08:47:23 AUTHOR: NADINE LEMUS COSIGNER: URGENCY: STATUS: COMPLETED V1 PHARMACY CUSTOMER CARE MEDICATION RENEWAL Has ADDENDA Date: Jun Division: [facility] referred by Pharmacy Call Center for medication renewal: Non-controlled/maintenan ce medication Medications requested: [id number] EMPAGLIFLOZIN 25MG TAB Provider: ADIEL THOMPSON Defer to specialty clinic To be mailed . Please review and renew if appropriate. *This note was generated by [facility]/[place] Pharmacy Customer Care. If you have any questions or need assistance, do not contact this author. Please refer all questions to your local, on-site pharmacy departments. /damaris/ NADINE LEMUS [facility] [place], [place]/Pharmacy Customer Care Signed: 07/10/2024 08:47 Receipt Acknowledged By: 07/12/2024 06:55 /damaris/ ADIEL THOMPSON CLINICAL SCUBA DIVER 07/12/2024 ADDENDUM STATUS: COMPLETED Per chart review, empagliflozin rx has : Drug Name EMPAGLIFLOZIN 25MG TAB Issue Date 07/09/2023 SIG TAKE ONE TABLET BY MOUTH ONCE DAILY FOR DIABETES Facility: [facility] will renew for mail per pt's request. Pt continues to follow w/ cpp last eGFR: 89 ml/min on 07/05/24 /damaris/ ADIEL THOMPSON CLINICAL SCUBA DIVER Signed: 07/12/2024 06:59 NADINE LEMUS [facility]
--- OUTSIDE RECORDS SUMMARY | 2025-03-09 15:44 | XMS_ITS ---
Author Name Department of Vetera Affairs ([place]) Organization [facility] of Veter[facility] ([place]) Address [address] [place] [id number] Care Team Providers Care Qi Specialist Name Role Phone HUNTER MARTINEZ Primary Care [...] Carmona's Name Patient's Relationship to Policy Carmona [facility] Nov 16, 2014 01 [id number] JARRETT BARRAGAN PATIENT MEDICARE (WNR) MEDICARE (M) PART A Jul 17, 2018 PART A [id number] LAUREL,JARRETT MEJIASONY PATIENT MEDICARE (WNR) MEDICARE (M) PART B Jul 17, 2018 PART B [id number] LAUREL,JARRETT MEJIASONY PATIENT MEDICARE (WNR) MEDICARE (M) PART A Jul 17, 2018 PART A [id number] LAUREL,JARRETT MEJIASONY PATIENT MEDICARE (WNR) MEDICARE (M) PART B Jul 17, 2018 PART B [id number] LAUREL,JARRETT [place] PATIENT Selected Encounter This section includes the information on record at ME for the Encounter. Date/Time Encounter Type Encounter Description Reason Provider Source Mar 07, 2025 12:00 PM PT EDUCATION NOC GROUP NUTRITION/DIETETI CS-GROUP ICD-10-CM Z71.3 Dietary counseling and surveillance JOSE BYRD [place] Encounter Template Text not used by ME Assessments - Encounter Diagnoses This section includes the primary and secondary diagnoses documented for the Encounter. Date/Time Primary/Secondary Diagnosis Diagnosis Name Provider Source Mar 08, 2025 09:23 AM PRIMARY Dietary counseling and surveillance JOSE BYRD [facility] Plan of Treatment: Future Appointments (+ 6 months) and Future Tests (+/- 45 days) The Plan of Treatment section includes future care activities for the patient [facility] This section includes future appointments and future orders which are active, pending or scheduled. Future Appointments This section includes appointments that were scheduled to occur 6 months from the date of the Encounter, up to a maximum of 20 appointments. The data comes from all ME treatment facilities. Appointment Date/Time Appointment Type Appointme nt Facility Name Mar 09, 2025 11:00 AM AMBULATORY - NONE [facility] Mar 09, 2025 01:30 PM AMBULATORY - MEDICINE [facility] April 04, 2025 02:00 PM AMBULATORY - MEDICINE [facility] Jun 13, 2025 03:00 PM AMBULATORY - MEDICINE [facility] Jun 29, 2025 03:00 PM AMBULATORY MEDICINE [facility] Active, Pending, and Scheduled Orders This section includes a listing of several types of active, pending, and scheduled orders, including clinic medications orders, diagnostic test orders, procedure orders and consult orders; where the start date of the order is 45 days before the date of the Encounter or 45 days after the date of theEncounter. The data comes from all ME treatment facilities. Test Date/Time Test Type Test Details Facility Name Feb 22, 2025 09:49 AM Consult Order COMMUNITY CARE-PULMONARY Cons District Commercial Superintendent's [facility] Social History: Smoking Status (Most current) and Tobacco Use (All prior to encounter date) This section includes the most current, and the historical, smoking and tobacco- related health factors from the ME facility where the Encounter took place. Current Smoking Status This section includes the most current smoking, or tobacco-related health factor, from the ME facility where the Encounter took place. Date/Time Current Smoking Status Comment Otf hamm Dec 10, 2023 01:11 PM VA-TOBACCO NEVER USED [place] [facility] [place] [facility] Advance Directives: All historical and current Section Date Range: From patient's date of to the date document was created. This section includes ALL of a patient's completed or amended VA Advance and Rescinded Directives. The entries below indicate that a directive exists for the patient, but an actual copy is not included with this document. The data comes from all ME facilities. Date Advance Directives Provider Source Aug 07, 2015 ADVANCE DIRECTIVE FLORECITABENDYLAN VASQUEZ STANLEYHERNAN [facility] Encounter Notes: All associated encounter notes This section contains the clinical notes associated to the Encounter. Date/Time Encounter Note(s) Provider Source Mar 07, 2025 12:00 PM NUTRITION GROUP COUNSELING NOTE: LOCAL TITLE: NUTRITION GROUP NOTE STANDARD TITLE: NUTRITION GROUP COUNSELING NOTE DATE OF NOTE: MAR 07, 2025@12:00 ENTRY DATE: MAR 08, 2025@09:23:30 AUTHOR: JOSE BYRD EXP COSIGNER: URGENCY: STATUS: COMPLETED Veterans participated in HTK via VVC on: 03/07/25. The [place] was provided with information on VV and has given verbal consent to use group VVC services for their healthcare. The copy of the Group Telehealth Agreement has been mailed to the . The [place]'s location/emergency contact number were confirmed. The Emergency Call Relay Center (E911) was available. The visit was locked for security and privacy. [place] identified with 2 identifiers: [x] Full Name [x] Address This class was taught by one Registered Dietitian with one co-host dietitian Dx: Z71.3 Time Spent: 60 minutes Participants: 26 Veterans, 1 collateral Nutrition Education Topics: Intro to [facility] HTK, Nutrient content of recipe ingredients Cooking demonstration: Crunch Sesame Slaw, Pork and Vegetable Fried Rice Veterans attended the 102nd class of the series, [facility] Healthy Teaching Kitchen. Today we went over the Group Telehealth Agreement, how HTK via VVC works, food safety, knife safety, and creating delicious food by balancing different basic taste and textures. All Veterans were mailed a copy of the Group Telehealth Agreement and copies of the recipes created during todays class. The recipes today were reviewed and the nutrients contained within the ingredients were explained. We discussed ways to alter the recipes to customize it to the Veterans preference. Next Class: 03/28/25 Participation was: [ ] minimal [ x ] active and appropriate [ ] over-productive /es/ JSOE BYRD MS, RDN, LDN Staff Dietitian Signed: 03/08/2025 09:28 JOSE BYRD [facility]
--- OUTSIDE RECORDS SUMMARY | 2025-03-09 15:44 | XMS_ITS | Encounter Summary ---
Author Name Department of Vetera Affairs ([place]) Organization Department of Veter[facility] ([place]) Address [address] [place] [id number] Care Team Providers Care Computer Numeric Control Setter Name Role Phone HUNTER MARTINEZ Primary Care [...] [place] H Nov 16, 2014 01 [id number] JARRETT BARRAGAN PATIENT MEDICARE (WNR) MEDICARE (M) PART A Jul 17, 2018 PART A [id number] LAUREL,JARRETT MEJIASONY PATIENT MEDICARE (WNR) MEDICARE (M) PART B Jul 17, 2018 PART B [id number] LAUREL,JARRETT MEJIASONY PATIENT MEDICARE (WNR) MEDICARE (M) PART A Jul 17, 2018 PART A [id number] LAUREL,JARRETT MEJIASONY PATIENT MEDICARE (WNR) MEDICARE (M) PART B Jul 17, 2018 PART B [id number] [id number] LAUREL,JARRETT DE [place] PATIENT Selected Encounter This section includes the information on record at DC for the Encounter. Date/Time Encounter Type Encounter Description Reason Provider Source Oct 04, 2024 03:00 PM OFFICE O/P EST LOW 20 MIN PODIATRY ICD-10-CM L60.0 Ingrowing nail BLANCA PAYAN [facility] Encounter Template Text not used by DC Assessments - Encounter Diagnoses This section includes the primary and secondary diagnoses documented for the Encounter. Date/Time Primary/Secondary Diagnosis Diagnosis Name Provider Source Oct 04, 2024 03:17 PM PRIMARY Ingrowing nail BLANCA PAYAN [facility] Oct 04, 2024 03:17 PM SECONDARY Pain in left toe(s) BLANCA PAYAN [place] Oct 04, 2024 03:17 PM SECONDARY Pain in right toe(s) BLANCA PAYAN [place] Oct 04, 2024 03:17 PM SECONDARY Type 2 diabetes w diabetic peripheral angiopath w/o gangrene BLANCA PAYAN Priti [facility] Plan of Treatment: Future Appointments (+ 6 months) and Future Tests (+/- 45 days) The Plan of Treatment section includes future care activities for the patient from all DC treatmentfacilities. This section includes future appointments and future orders which are active, pending or scheduled. Future Appointments This section includes appointments that were scheduled to occur 6 months from the date of the Encounter, up to a maximum of 20 appointments. The data comes from all DC treatment facilities. Appointment Date/Time Appointment Type Appointme nt Facility Name Oct 06, 2024 11:00 AM AMBULATORY - NONE [place] Oct 11, 2024 12:00 PM AMBULATORY - NONE [facility] [place] [facility] Oct 20, 2024 11:00 AM AMBULATORY - NONE [place] Oct 25, 2024 12:00 PM AMBULATORY - NONE [facility] [place] [facility] Oct 27, 2024 11:00 AM AMBULATORY - NONE [place] Oct 27, 2024 02:30 PM AMBULATORY - MEDICINE [facility] [place] [facility] Nov 03, 2024 09:00 AM AMBULATORY - MEDICINE [facility] [place] [facility] Nov 03, 2024 11:00 AM AMBULATORY - NONE [place] Dec 01, 2024 08:30 AM AMBULATORY - REHAB MEDICIN E [facility] [place] [facility] Dec 06, 2024 01:30 PM AMBULATORY - MEDICINE [facility] Dec 08, 2024 11:00 AM AMBULATORY - NONE [place] Dec 13, 2024 12:00 PM [facility] Dec 15, 2024 11:00 AM AMBULATORY - NONE [place] Dec 15, 2024 02:30 PM AMBULATORY - MEDICINE [facility] Dec 29, 2024 11:00 AM AMBULATORY - NONE [place] Jan 05, 2025 11:00 AM AMBULATORY - NONE [place] Jan 12, 2025 11:00 AM AMBULATORY - NONE [place] Jan 19, 2025 11:00 AM AMBULATORY - NONE [place] Jan 20, 2025 01:00 PM [facility] Jan 26, 2025 11:00 AM AMBULATORY - [...] of theEncounter. The data comes from all [place] treatment facilities. Test Date/Time Test Type Test Details Facility Name Oct 27, 2024 12:00 AM Laboratory - Chemistry Order MICROALBUMIN CREATININE RATIO PANEL URINE (RANDOM) SP [facility] Lab Results: +/- 30 days of the [...] Type Comment Oct 27, 2024 02:50 PM [facility] HEMOGLOBIN A1C PANEL BLOOD Specimen Type: BLOOD [...] Oct 27, 2024 02:44 PM Reporting Lab: [address] [id number] Performing Lab: [address] [address] HEMOGLOBIN A1C 6.0 H 4.0-5.6 Oct 27, 2024 02:50 PM [facility] BASIC METABOLIC PANEL (non-fasting) SERUM Spe cimen Type: SERUM No comment entered. Ordering Provider: ADIEL THOMPSON Report Released Date/Time: Oct 27, 2024 02:44 PM Reporting Lab: [address] [address] Performing Lab: [address] [address] UREA NITROGEN 19 mg/dL 7-25 GLUCOSE 92 mg/dL 65-100 SODIUM 138 mmol/L 135-145 POTASSIUM 4.8 mmol/L 3.5-5.0 CHLORIDE 107 mmol/L 100-110 CO2 20 meq/L 20-30 CREATININE, Serum 0.84 mg/dL 0.50-1.40 eGFR(CKD-EPI 2020) >90 mL/min >60 Oct 27, 2024 02:50 PM [facility] CBC BLOOD Specimen Type: BLOOD No comment entered. Ordering Provider: ADIEL THOMPSON Report Released Date/Time: Oct 27, 2024 02:44 PM Reporting Lab: [address] [address] Performing Lab: [address] [address] WBC 6.22 10*3/uL 4.50-11.00 RBC 5.33 10*6/uL 4.23-5.66 HGB 16.2 g/dL 12.8-17 HCT 48.3 39.2-50.4 MCV 90.6 fL 82-99 MCHC 33.5 g/dL 30.8-35.1 PLT 252 10*3/uL 140-360 RDW-CV 13.6 12.0-16.0 MCH 30.4 pg 26.2-32.6 Social History: Smoking Status (Most current) and Tobacco Use (All prior to encounter date) This section includes the most current, and the historical, smoking and tobacco- related health factors from the DC facility where the Encounter took place. Current Smoking Status This section includes the most current smoking, or tobacco-related health factor, from the DC facility where the Encounter took place. Date/Time Current Smoking Status Comment Facil ity May 27, 2022 09:30 AM VA-TOBACCO NEVER USED [facility] Tobacco Use History This section includes a history of the smoking, or tobacco-related health factors, that were collected on or before the date of the Encounter. The data comes from the DC facility where the Encounter took place. Date/Time Smoking Status/Tobacco Use Comment F acility Jan 11, 2020 10:38 AM DC-TOBACCO NEVER USED [facility] Jan 25, 2019 01:47 PM VA-TOBACCO NEVER USED [facility] Feb 04, 2018 01:53 PM LIFETIME NON-TOBACCO USER [facility] Feb 04, 2017 10:10 AM LIFETIME NON-TOBACCO USER [facility] Jul 12, 2015 08:31 AM LIFETIME NON-TOBACCO USER [facility] Advance Directives: All historical and current Section Date Range: From patient's date of to the date document was created. This section includes ALL of a patient's completed or amended DC Advance and Rescinded Directives. The entries below indicate that a directive exists for the patient, but an actual copy is not included with this document. The data comes from all [facility]. Date Advance Directives Provider Source Aug 07, 2015 ADVANCE DIRECTIVE BEN BERNABE [facility] Encounter Notes: All associated encounter notes This section contains the clinical notes associated to the Encounter. Date/Time Encounter Note(s) Provider Source Oct 19, 2024 08:43 AM LETTERS: LOCAL TITLE: PATIENT LETTER (B) STANDARD TITLE: LETTERS DATE OF NOTE: OCT 19, 2024@08:43 ENTRY DATE: OCT 19, 2024@08:43:36 AUTHOR: PEEWEE BLANDIGNER: URGENCY: STATUS: COMPLETED [facility] [address] [place] [address] [phone] * JUSTIN BARRAGAN [address] [place] [address] Date: OCT 19, 2024 Dear Madeline: This is a reminder letter that your SHOES are ready for pick at the [facility] in [place] located at [address] [place] [address]. You may fiber picker your shoes and or orthotics at your convenience any day, Thursday through Thursday between 8:30am and 3:30pm. You do not need an appointment. BUT WE DO REQUEST THAT YOU CALL BEFORE ARRIVING TO MAKE SURE THE PODIATRY HEALTH NATURAL REMEDY CONSULTANT IS AVAILABLE ON THAT DAY. Call [phone] for Peewee if you have any questions. We hope to see you soon, Sincerely, Office Staff for:HUNTER MARTINEZ [facility] Provider Upcoming Appointments: 10/27/2024 14:30 CWM/SO/PHARM/PACT 2 12/06/2024 13:30 CWM/SO/PACT 1 ACCOUNT SOLUTIONS ANALYST 02/07/2025 15:00 CWM/SO/PODIATRY/ROSS 09/07/2025 08:00 CWM/NO/OPTOMETRY 1 AM PEEWEE BLAND [facility] Oct 04, 2024 09:25 AM PODIATRY NOTE: LOCAL TITLE: PODIATRY NOTE STANDARD TITLE: PODIATRY NOTE DATE OF NOTE: OCT 04, 2024@09:25 ENTRY DATE: OCT 04, 2024@09:25:40 AUTHOR: BLANCA PAYAN COSIGNER: URGENCY: STATUS: COMPLETED HAS RECEIVED BOTH COVID VACCINE DOSES + 4 BOOSTERS AT [facility] LAST SEEN FOR TREATMENT: 05/17/2024 S: Pt. is a 69 yo alert WDWN CAUC MALE who presents [...] *NOTE: A1c= 6.2 (LAST TAKEN: 04/2024) FBS= 119 RISK =1 HEIGHT:236 lb [107.3 kg] (07/05/2020 [...] present physical-medical status. Protective sensation utilizing a [place] lOg monofilament is 10/10 bilateral. *NOTE: *YEARLY COMPLETE PAVE EXAM PERFORMED TODAY - SEE BELOW. BIOMECHANICAL: Exam is deferred at this time due as BEING non-contributory to the cc . A: Clinical Impression is painful onychocryptic nails in the presence of DM BUT NO PVD. P: Treatment consists of trimming-reduction of all nails via manual & electric means with excision of the offending nail borders. All care rendered without complications & the patient is progressing well after podiatric care this date and will be scheduled for periodic podiatric care in an attempt to prevent future complications due to the underlying medical conditions. Treatment by a non-professional could be extremely hazardous to the patient's well-being due to the underlying medical conditions. Return to Clinic: ( 02/07 @ 3PM) *DISCUSSED NEW PROTOCOLS AND CALLED [...] HEEL CALLUS AND IT IS IMPROVED DISCUSSED TOMEKA & GAZA AND TRYING TO FIND SOLUTIONS FOR SUITABLE HOUSING FOR ALL Medication Reconciliation: PERFORMED TODAY - SEE BELOW. Outpatient: Has the patient been taking medications as documented in the EMLR? YES: The patient has been taking medications as documented in the EMLR. Essential Medication List for Review used to complete this medication reconciliation. INCLUDED IN THIS LIST: Alphabetical list of active outpatient prescriptions dispensed from this VA (local) and dispensed from another DC or [facility]D facility (remote) as well as [...] Remote Allergy/ADR Data available for this patient [facility] BEE STINGS [facility] PENICILLIN Med Recon NoGlossary (Tool #1) INCLUDED IN THIS LIST: Alphabetical list of active outpatient prescriptions dispensed from this DC (local) and dispensed from another DC or [facility] facility (remote) as well as inpatient orders (local pending and active), local clinic medications, locally documented non-VA medications, and local prescriptions that have or been discontinued in the past 90 days. Non-VA Meds Last Documented On: Dec 10, 2023 NOTE The display of VA prescriptions dispensed from another DC or [facility] facility (remote) is limited to active outpatient prescription entries matched to National Drug File at the originating site and may not include some items such as investigational drugs, compounds, etc. NOT INCLUDED IN THIS LIST: Medications self-entered by the patient into personal health records (i.e. memory lane syndications) are NOT included in this list. Non-VA medications documented outside this DC, remote inpatient orders (regardless of status) and remote clinic medications are NOT included in this list. The patient and provider must always discuss medications the patient is taking, regardless of where the medication was dispensed or obtained. OUTPT ALBUTEROL 90MCG (CFC-F) 200D ORAL INHL (Status = Discontinued) INHALE 2 PUFFS BY MOUTH EVERY 4 HOURS NEEDED FOR ASTHMA ATTACK Rx# [id number] Last Released: 07/08/24 Qty/Days Supply: Rx Expiration Date: 12/10/24 Refills Remainin Indication: FOR ASTHMA ATTACK OUTPT ALBUTEROL 90MCG (CFC-F) 200D ORAL INHL (Status = Active) INHALE 2 PUFFS BY MOUTH EVERY 4 HOURS NEEDED FOR ASTHMA ATTACK Rx# [id number] Last Released: 09/27/24 Qty/Days Supply: Rx Expiration Date: 09/22/25 Refills Remainin Indication: FOR ASTHMA ATTACK Non-VA ASCORBIC ACID 500MG TAB TAKE TWO TABLETS BY MOUTH ONCE DAILY Medication prescribed by Non-VA provider. Non-VA BISACODYL 5MG EC TAB TAKE ONE TABLET BY MOUTH TWICE DAILY Medication prescribed by Non-VA provider. OUTPT CARBOXYMETHYLCELLULOSE NA 0.5% OPH SOLN (Status = ) INSTILL 1 DROP INTO EACH EYE FOUR TIMES DAILY NEEDED FOR DRYNESS Rx# [id number] Last Released: 09/11/23 Qty/Days Supply: Rx Expiration Date: 09/03/24 Refills Remainin Non-VA CHOLECALCIF 50MCG (D3-2,000UNIT) TAB TAKE ONE TABLET BY MOUTH DAILY Medication prescribed by Non-VA provider. Non-VA DOCUSATE NA 100MG CAP TAKE 1 CAPSULE BY MOUTH TWICE DAILY Medication prescribed by Non-VA provider. OUTPT EMPAGLIFLOZIN 25MG TAB (Status = ) TAKE ONE TABLET BY MOUTH ONCE DAILY FOR DIABETES Rx# [id number] Last Released: 04/21/24 Qty/Days Supply: Rx Expiration Date: 07/09/24 Refills Remainin OUTPT EMPAGLIFLOZIN 25MG TAB (Status = Discontinued) TAKE ONE TABLET BY MOUTH ONCE DAILY FOR TYPE 2 DIABETES MELLITUS Rx# [id number] Last Released: 07/13/24 Qty/Days Supply: Rx Expiration Date: 07/13/25 Refills Remainin Indication: FOR TYPE 2 DIABETES MELLITUS OUTPT EMPAGLIFLOZIN 25MG TAB (Status = Active) TAKE ONE TABLET BY MOUTH ONCE DAILY FOR TYPE 2 DIABETES MELLITUS Rx# [id number] Last Released: 09/27/24 Qty/Days Supply: Rx Expiration Date: 08/18/25 Refills Remainin Indication: FOR TYPE 2 DIABETES MELLITUS Non-VA FENOFIBRATE 145MG TAB TAKE ONE TABLET BY MOUTH ONCE DAILY Medication prescribed by Non-VA provider. Indication: FOR HIGH CHOLESTEROL Non-VA FLAXSEED CAP,ORAL TAKE BY MOUTH DAILY OUTPT FLUTICAS 250/SALMETEROL 50 INHL DISK 60 (Status = Discontinued) INHALE 1 PUFF BY MOUTH TWICE DAILY Rx# [id number] Last Released: 07/08/24 Qty/Days Supply: 12/15 Rx Expiration Date: 12/10/24 Refills Remainin OUTPT FLUTICAS 250/SALMETEROL 50 INHL DISK 60 (Status = Active) INHALE 1 PUFF BY MOUTH TWICE DAILY Rx# [id number] Last Released: 09/27/24 Qty/Days Supply: 12/15 Rx Expiration Date: 09/22/25 Refills Remainin OUTPT GLUCOSE 4GM CHEW TAB (Status = Active) CHEW FOUR TABLETS BY MOUTH NEEDED FOR LOW BLOOD SUGAR Rx# [id number] Last Released: 07/08/24 Qty/Days Supply: Rx Expiration Date: 07/06/25 Refills Remainin Indication: FOR LOW BLOOD SUGAR OUTPT INSULIN,GLARGINE-YFGN 100UNIT/ML PEN 3ML (Status = ) INJECT 26 UNITS SUBCUTANEOUSLY ONCE DAILY Rx# [id number] Last Released: 07/13/23 Qty/Days Supply: Rx Expiration Date: 07/09/24 Refills Remainin Indication: FOR DIABETES OUTPT INSULIN,GLARGINE-YFGN 100UNIT/ML PEN 3ML (Status = Active) INJECT 10 UNITS SUBCUTANEOUSLY ONCE DAILY FOR DIABETES Rx# [id number] Last Released: 09/13/24 Qty/Days Supply: Rx Expiration Date: 08/18/25 Refills Remainin Indication: FOR DIABETES OUTPT LEVOTHYROXINE NA (SYNTHROID) 150MCG TAB (Status = Discontinued) TAKE ONE TABLET BY MOUTH EVERY MORNING 30 MINUTES BEFORE BREAKFAST FOR THYROID - TAKE ON AN EMPTY STOMACH WITH A FULL GLASS OF WATER Rx# [id number] Last Released: 07/28/24 Qty/Days Supply: Rx Expiration Date: 11/18/24 Refills Remainin OUTPT LEVOTHYROXINE NA (SYNTHROID) 150MCG TAB (Status = Active/Suspended) TAKE ONE TABLET BY MOUTH EVERY MORNING 30 MINUTES BEFORE BREAKFAST FOR THYROID - TAKE ON AN EMPTY STOMACH WITH A FULL GLASS OF WATER Rx# [id number] Last Released: Qt Supply: Rx Expiration Date: 08/24/25 Refills Remainin Non-VA LISINOPRIL 20MG TAB TAKE ONE TABLET BY MOUTH ONCE DAILY Medication prescribed by Non-VA provider. OUTPT METFORMIN HCL 1000MG TAB (Status = Discontinued) TAKE ONE TABLET BY MOUTH TWICE DAILY FOR DIABETES Rx# [id number] Last Released: 06/08/24 Qty/Days Supply: Rx Expiration Date: 10/19/24 Refills Remainin OUTPT METFORMIN HCL 1000MG TAB (Status = Active) TAKE ONE TABLET BY MOUTH TWICE DAILY FOR DIABETES Rx# [id number] Last Released: 09/05/24 Qty/Days Supply: Rx Expiration Date: 08/18/25 Refills Remainin Non-VA MULTIVITAMIN/MINERALS CAP/TAB TAKE ONE TABLET BY MOUTH AT BEDTIME Medication prescribed by Non-VA provider. Non-VA OLANZAPINE 15MG TAB TAKE ONE TABLET [...] AT BEDTIME FOR TOOTH DECAY PREVENTION Rx# [id number] Last Released: 06/16/24 Qty/Days Supply: Rx Expiration Date: 07/13/24 Refills Remainin Indication: FOR TOOTH DECAY PREVENTION OUTPT SODIUM FLUORIDE 1.1% (FL 0.5%) DENT GEL (Status = Active) APPLY PEA SIZE AMOUNT TO TEETH AT BEDTIME FOR TOOTH DECAY PREVENTION Rx# [id number] Last Released: 09/27/24 Qty/Days Supply: 60 Rx Expiration Date: 09/23/25 Refills Remainin Indication: FOR TOOTH DECAY PREVENTION SUPPLIES OUTPT GLUCOSE SENSOR DEXCOM G7 (Status = Active/Suspended) USE 1 SENSOR DIRECTED EVERY 10 DAYS Rx# [id number] Last Released: 06/24/24 Qty/Days Supply: Rx Expiration Date: 04/22/25 Refills Remainin OUTPT LANCET,SOFTCLIX (Status = ) USE 1 LANCET TOPICALLY TWICE DAILY TO TEST BLOOD SUGAR Rx# [id number] Last Released: 09/18/23 Qty/Days Supply: 200/90 Rx Expiration Date: 09/18/24 Refills Remainin OUTPT NEEDLE,PEN 31G,5MM (Status = ) USE 1 NEEDLE SUBCUTANEOUSLY ONCE DAILY FOR USE WITH PEN DEVICE Rx# [id number] Last Released: 05/23/24 Qty/Days Supply: 100/90 Rx Expiration Date: 07/14/24 Refills Remainin OUTPT NEEDLE,PEN 31G,5MM (Status = Active) USE 1 NEEDLE SUBCUTANEOUSLY ONCE DAILY FOR USE WITH PEN DEVICE Rx# [id number] Last Released: 08/22/24 Qty/Days Supply: 10090 Rx Expiration Date: 08/18/25 Refills Remainin /damaris/ BLANCA PAYAN DPM CANVAS BASTER Signed: 10/04/2024 15:17 BLANCA PAYAN [facility]
--- OUTSIDE RECORDS SUMMARY | 2025-03-09 15:44 | XMS_ITS ---
Author Name [facility] [place] Organization [place] Address [address] [place] [address] Care Team Providers Care Assembler Fishing Floats Name Role Phone HUNTER MARTINEZ Primary Care [...] Carmona's Name Patient's Relationship to Policy Carmona [facility] MEDICAID [facility] Nov 16, 2014 01 [id number] LAUREL,JARRETT DE [place] PATIENT MEDICARE (WNR) MEDICARE (M) PART A Jul 17, 2018 PART A [id number] LAUREL,JARRETT MEJIASONY PATIENT MEDICARE (WNR) MEDICARE (M) PART B Jul 17, 2018 PART B [id number] LAUREL,JARRETT MEJIASONY PATIENT MEDICARE (WNR) MEDICARE (M) PART A Jul 17, 2018 PART A [id number] LAUREL,JARRETT MEJIASONY PATIENT MEDICARE (WNR) MEDICARE (M) PART B Jul 17, 2018 PART B [id number] [id number] LAUREL,JARRETT DE [place] PATIENT Selected Encounter This section includes the information on record at [place] for the Encounter. Date/Time Encounter Type Encounter Description Reason Pro vider Source Sep 21, 2024 02:43 PM Outpatient Encounter ADMIN PAT ACTIVTIES (SUNGJONATHAN) IHE Encounter Template Text not used by [place] Plan of Treatment: Future Appointments (+ 6 months) and Future Tests (+/- 45 days) The Plan of Treatment section includes future care activities for the patient from all [place] treatmentfacilities. This section includes future appointments and future orders which are active, pending or scheduled. Future Appointments This section includes appointments that were scheduled to occur 6 months from the date of the Encounter, up to a maximum of 20 appointments. The data comes from all [place] treatment facilities. Appointment Date/Time Appointment Type Appointme nt Facility Name Sep 22, 2024 11:00 AM AMBULATORY - NONE [facility] Sep 27, 2024 12:00 PM [facility] NONE [facility] [place] [facility] Sep 28, 2024 04:00 PM AMBULATORY - [facility]HAB [facility]ICIN [facility] [place] [facility] Oct 04, 2024 03:00 PM AM[facility]ULATORY [facility] Oct 06, 2024 11:00 AM AMBULATORY - NONE [place] Oct 11, 2024 12:00 PM AMBULATORY - NONE [facility] [place] [facility] Oct 20, 2024 11:00 AM AMBULATORY - NONE [place] Oct 25, 2024 12:00 PM AMBULATORY - NONE [facility] [place] [facility] Oct 27, 2024 11:00 AM AMBULATORY - NONE [place] Oct 27, 2024 02:30 PM AMBULATORY [facility] MEDICINE [facility] [place] [facility] Nov 03, 2024 09:00 AM AM[facility]UL[facility]ORY [facility]ICINE [facility] [place] [facility] Nov 03, 2024 11:00 AM AMBULATORY - NONE [facility] Dec 01, 2024 08:30 AM AMBULATORY - REHAB MEDICIN [facility] [place] [facility] Dec 06, 2024 01:30 PM [facility]ORY [facility]ICINE [facility] Dec 08, 2024 11:00 AM AMBULATORY - NONE [facility] Dec 13, 2024 12:00 PM AMBULATORY - NONE [facility] [place] [facility] Dec 15, 2024 11:00 AM AMBULATORY - NONE [place] Dec 15, 2024 02:30 PM AMBULATORY - MEDICINE [facility] Dec 29, 2024 11:00 AM AMBULATORY - NONE [place] Jan 05, 2025 11:00 AM [facility] [place] [facility] [facility] [facility] Active, Pending, and Scheduled Orders This section includes a listing of several types of active, pending, and scheduled orders, including clinic medications orders, diagnostic test orders, procedure orders and consult orders; where the start date of the order is 45 days before the date of the Encounter or 45 days after the date of theEncounter. The data comes from all [place] treatment facilities. Test Date/Time Test Type Test Details Facility Name Oct 27, 2024 12:00 AM Laboratory - Chemistry Order MICROALBUMIN CREATININE RATIO PANEL URINE (RANDOM) SP [facility] Social History: Smoking Status (Most current) and Tobacco Use (All prior to encounter date) This section includes the most current, and the historical, smoking and tobacco- related health factors from the [place] facility where the Encounter took place. Current Smoking Status This section includes the most current smoking, or tobacco-related health factor, from the [place] facility where the Encounter took place. Date/Time Current Smoking Status Comment Facil ity Dec 10, 2023 01:11 PM VA-TOBACCO NEVER USED [facility] Advance Directives: All historical and current Section Date Range: From patient's date of to the date document was created. This section includes ALL of a patient's completed or amended [place] Advance and Rescinded Directives. The entries below indicate that a directive exists for the patient, but an actual copy is not included with this document. The data comes from all [place] facilities. Date Advance Directives Provider Source Aug 07, 2015 ADVANCE DIRECTIVE BEN BERNABE [facility] Encounter Notes: All associated encounter notes This section contains the clinical notes associated to the Encounter. Date/Time Encounter Note(s) Provider Source Sep 21, 2024 02:44 PM PHARMACY NOTE: LOCAL TITLE: V1 PHARMACY CUSTOMER CARE MEDICATION RENEWAL STANDARD TITLE: PHARMACY NOTE DATE OF NOTE: SEP 21, 2024@14:44 ENTRY DATE: SEP 21, 2024@14:44:03 AUTHOR: CHRIS SINGH COSIGNER: URGENCY: STATUS: COMPLETED Date: Sep Division: [place] Pt referred by Pharmacy Call Center for medication renewal: Non-controlled/maintenan ce medication Medications requested: RX # [id number] SODIUM FLUORIDE 1.1% (FL 0.5%) DENT GEL Provider: TRAVON SUTTON Primary Care Provider: HUNTER MARTINEZ Infant And Toddler Teacher: TYLOR EVANS Defer to specialty clinic To be mailed . Please review and renew if appropriate. *This note was generated by [facility] Pharmacy Customer Care. If you have any questions or need assistance, do not contact this author. Please refer all questions to your local, on-site pharmacy departments. /damaris/ CHRIS SINGH [facility] Route Delivery Service Driver , [place]/Pharmacy Customer Care Signed: 09/21/2024 14:44 Receipt Acknowledged By: 09/22/2024 10:56 /damaris/ TYLOR EVANS REGISTERED NURSE 09/22/2024 11:19 /damaris/ HUNTER MARTINEZ NP NURSE PRACTITIONER CHRIS SINGH [place] [facility]
--- OUTSIDE RECORDS SUMMARY | 2025-03-09 15:44 | XMS_ITS | Encounter Summary ---
Author Name [facility] [place] Address [address] [place] [address] Care Team Providers Care Rotary Driller Name Role Phone HUNTER MARTINEZ Primary Care [...] [place] [facility] Nov 16, 2014 01 [id number] LAUREL,JARRETT MEJIASONY PATIENT MEDICARE (WNR) MEDICARE (M) PART B Jul 17, 2018 PART B [id number] LAUREL,AN WIL PATIENT MEDICARE (WNR) MEDICARE (M) PART A Jul 17, 2018 PART A [id number] LAUREL,AN WIL PATIENT MEDICARE (WNR) MEDICARE (M) PART A Jul 17, 2018 PART A [id number] LAUREL,JARRETT MEJIASONY PATIENT MEDICARE (WNR) MEDICARE (M) PART B Jul 17, 2018 PART B [id number] LAUREL,JARRETT DE [place] PATIENT Selected Encounter This section includes the information on record at [place] for the Encounter. Date/Time Encounter Type Encounter Description Reason Provider Source Jul 05, 2024 01:00 PM OFFICE O/P EST LOW 20 MIN PRIMARY CARE/MEDICINE ICD-10-CM E11.65 Type 2 diabetes mellitus with hyperglycemia HUNTER MARTINEZ [facility] Encounter Template Text not used by [place] Assessments - Encounter Diagnoses This section includes the primary and secondary diagnoses documented for the Encounter. 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 This section includes future appointments and future orders which are active, pending or scheduled. Future Appointments This section includes appointments that were scheduled to occur 6 months from the date of the Encounter, up to a maximum of 20 appointments. The data comes from all [place] treatment facilities. Appointment Date/Time Appointment Type Appointme nt Facility Name Jul 12, 2024 12:00 PM AMBULATORY - NONE [facility] [place] [facility] Jul 14, 2024 11:00 AM AMBULATORY - NONE [place] Jul 21, 2024 11:00 AM AMBULATORY - NONE [place] Jul 26, 2024 12:00 PM AMBULATORY - NONE [facility] [place] [facility] Jul 28, 2024 01:00 PM AM[place]ULATORY [place]ICINE [facility] [place] [facility] Aug 09, 2024 12:00 PM AMBULATORY - NONE [facility] [place] [facility] Aug 11, 2024 11:00 AM AMBULATORY - NONE [place] Aug 17, 2024 03:00 PM AM[place]ULATORY [place]ICINE [place] [facility] [place] [facility] Aug 18, 2024 11:00 AM AMBULATORY - NONE [place] Aug 23, 2024 12:00 PM AMBULATORY - NONE [facility] [place] [facility] Aug 25, 2024 11:00 AM AMBULATORY - NONE [place] Aug 30, 2024 03:00 PM AMBULATORY - REHAB MEDICIN [facility] [place] Sep 01, 2024 11:00 AM AMBULATORY - NONE [place] Sep 05, 2024 08:30 AM AMBULATORY - MEDICINE [facility] [place] [facility] Sep 06, 2024 12:00 PM AMBULATORY - NONE [facility] [place] [facility] Sep 08, 2024 11:00 AM AMBULATORY - NONE [facility] Sep 15, 2024 11:00 AM AMBULATORY - NONE [place] Sep 22, 2024 11:00 AM AMBULATORY - NONE [place] Sep 27, 2024 12:00 PM AMBULATORY - NONE [facility] [place] [facility] Sep 28, 2024 04:00 PM AMBULATORY - REHAB MEDICIN E [facility] [place] [facility] Lab Results: +/- 30 days of the encounter This section includes the Chemistry and Hematology Lab Results on record with [place] for the patient. Radiology Reports and Pathology Reports are provided separately, in subsequent sections. Lab Results This section contains the Chemistry/Hematology Results that were resulted 30 days before or 30 daysafter the date of the Encounter. Date/Time Source Result Type Result - Unit Interpretation Reference Range Specimen Type Comment Jul 05, 2024 01:32 PM [place] MICROALBUMIN CREATININE RATIO PANEL URINE Specimen Type: URINE No comment entered. Ordering Provider: HUNTER MARTINEZ Report Released Date/Time: Jul 05, 2024 01:19 PM Reporting Lab: [facility] [place] [facility] [address] [address] Performing Lab: [facility] [facility] [place] [facility] [address] [address] MICROALBUMIN/CREATININE RATIO canc mg/g 0-29.9 MICROALBUMIN,QUANTITATIVE < 0.5 mg/dL RR UNAVAIL CREATININE URINE 19.74 mg/dL Jul 05, 2024 01:24 PM [place] TSH SERUM Sp ecimen Type: SERUM No comment entered. Ordering Provider: HUNTER MARTINEZ Report Released Date/Time: Jul 05, 2024 01:19 PM Reporting Lab: [facility] [address] [address] Performing Lab: [facility] [address] [address] TSH 0.25 u[IU]/mL L 0.35-5.00 Jul 05, 2024 01:24 PM [place] VITAMIN D (25-OH) SERUM Specimen Type: SERUM No comment entered. Ordering Provider: HUNTER MARTINEZ Report Released Date/Time: Jul 05, 2024 01:19 PM Reporting Lab: [facility] [address] [address] Performing Lab: [address] [address] VITAMIN D (25-OH) 27 ng/mL 20-50 Jul 05, 2024 01:24 PM [place] BASIC METABOLIC PANEL (non-fasting) SERUM Specimen Type: SERUM No comment entered. Ordering Provider: HUNTER MARTINEZ Report Released Date/Time: Jul 05, 2024 01:19 PM Reporting Lab: [address] [address] Performing Lab: [address] [address] UREA NITROGEN 22 mg/dL 7-25 GLUCOSE 105 mg/dL H 65-100 SODIUM 134 mmol/L L 135-145 POTASSIUM 4.5 mmol/L 3.5-5.0 CHLORIDE 101 mmol/L 100-110 CO2 23 meq/L 20-30 CREATININE, Serum 0.92 mg/dL 0.50-1.40 eGFR(CKD-EPI 2020) 89 mL/min >60 Jul 05, 2024 01:24 PM [place] CBC BLOOD Sp ecimen Type: BLOOD No comment entered. Ordering Provider: HUNTER MARTINEZ Report Released Date/Time: Jul 05, 2024 01:19 PM Reporting Lab: [address] [address] Performing Lab: [address] [address] WBC 6.07 10*3/uL 4.50-11.00 RBC 4.77 10*6/uL [...] and tobacco- related health factors from the [place] facility where the Encounter took place. Current Smoking Status This section includes the most current smoking, or tobacco-related health factor, from the [place] facility where the Encounter took place. Date/Time Current Smoking Status Comment Facil ity May 27, 2022 09:30 AM VA-TOBACCO NEVER USED [place] Tobacco Use History This section includes a history of the smoking, or tobacco-related health factors, that were collected on or before the date of the Encounter. The data comes from the [place] facility where the Encounter took place. Date/Time Smoking Status/Tobacco Use Comment F acility Jan 11, 2020 10:38 AM [place]-TOBACCO NEVER USED [place] Jan 25, 2019 01:47 PM [place]-TOBACCO NEVER USED [place] Feb 04, 2018 01:53 PM LIFETIME NON-TOBACCO USER [place] Feb 04, 2017 10:10 AM LIFETIME NON-TOBACCO USER [place] Jul 12, 2015 08:31 AM LIFETIME NON-TOBACCO USER [place] Advance Directives: All historical and current Section Date Range: From patient's date of to the date document was created. This section includes ALL of a patient's completed or amended [place] Advance and Rescinded Directives. The entries below indicate that a directive exists for the patient, but an actual copy is not included with this document. The data comes from all [place] facilities. Date Advance Directives Provider Source Aug 07, 2015 ADVANCE DIRECTIVE BEN BERNABE Encounter Notes: All associated encounter notes This section contains the clinical notes associated to the Encounter. Date/Time Encounter Note(s) Provider Source Jul 05, 2024 01:36 PM PRIMARY CARE NURSE PRACTITIONER OUTPATIENT NOTE: LOCAL TITLE: NURSE PRACTITIONER OUTPATIENT NOTE STANDARD TITLE: PRIMARY CARE NURSE PRACTITIONER OUTPATIENT NOTE DATE OF NOTE: JUL 05, 2024@13:36 ENTRY DATE: JUL 05, 2024@13:36:37 AUTHOR: HUNTER MARTINEZ COSIGNER: URGENCY: STATUS: COMPLETED PRIMARY CARE VISIT JUSTIN BARRAGAN, is a 68 yo WHITE MALE who [place] at the [place] [facility]. TYPE OF VISIT: Face to face 68-year-old male with sarcoid, schizophrenia, obesity, HLD, type 2 diabetes, and a history of thyroid cancer status post excision 2003 presented to the outpatient clinic in regular follow-up. He is comanaged with a community PCP. No concerns today. No recent illnesses. He did present at the [facility] ED 04/28 for an episode of hypoglycemia. He received oral glucose and was discharged home. He was discharged with no medication changes. Recent labs and diagnostic studies were reviewed with the . All medications were reconciled during this visit. HEALTHCARE PROVIDERS: Community PCP: Dr. Castillo CPP: Dr. Neumann MH: [facility] clinician. Social Hx: The lives alone in senior housing in [place]. No nicotine, alcohol, MJ. Exercises daily by walking. 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 12/02/2022 TRAVON SUTTON Obesity E66.8 01/15/2016 NEIL ROGERS Osteoarthritis of knee M17.0 12/02/2022 TRAVON SUTTON outside providers 799.9 07/12/2015 NEIL ROGERS Neoplasm of neck C76.0 12/02/2022 TRAVON SUTTON Thyroid cancer D09.3 02/17/2019 NEIL ROGERS Schizophrenia F20.9 12/02/2022 TRAVON SUTTON Diabetes mellitus E11.65 01/15/2016 NEIL ROGERS Hyperlipidemia E78.5 01/15/2016 NEIL ROGERS Constipation K59.00 12/02/2022 TRAVON SUTTON VITAL SIGNS: Temperature 97.1 F [36.2 C] (12/10/2023 13:03) Blood Pressure 99/72 (12/10/2023 13:03) Pulse 91 (12/10/2023 13:03) Respiration 19 (06/03/2023 15:46) Pain 0 (06/03/2023 15:46) BMI BMI: 32.8 Weight 235 lb [106.59 kg] (06/24/2024 14:25) Pulse Oximetry 98% (12/10/2023 13:03) ASSISTIVE DEVICES: REVIEW OF SYSTEMS: CONSTITUTIONAL: No fevers, chills, [...] extremities, or unilateral weakness. EXAMINATION General: Well-appearing in no obvious distress. Mental Status: Alert and oriented x4. Head: Normocephalic. Eyes: PERRLA. EOMI. Anicteric sclerae. ENT: Moist oral mucosa. Posterior pharynx unremarkable Neck: Supple. No no thyromegaly. No LAD. No bruit. Lungs: CTA. Normal chest excursion. No accessory muscle use CV: Heart tones S1, S2. RRR. No M/G/R. No peripheral edema GI: Obese abdomen is soft and nontender. No HSM or mass. : No CVA tenderness. Ext: No [...] DUE NOW MH AIMS Testing DUE NOW Medication Reconciliation DUE NOW COVID-19 Immunization DUE NOW RHS Screen DUE NOW Eye Care At-Risk Screen Sep 03 (Optional) Whole Health Documentation DUE NOW ASSESSMENT/PLAN: Active problems - Computerized Problem List is the source for the following: Obesity: BMI 32.8. Declines move program today. Thyroid cancer: Now with secondary hypothyroidism. Maintained on levothyroxine 150 mcg daily. Check TSH today. Schizophrenia: He follows with [facility] clinician for medical management. Diabetes mellitus: HbA1c 6.2%. Maintained on semaglutide, empagliflozin, metformin. Follows a diabetic diet. Encouraged to continue. Hyperlipidemia: Check lipid panel. Continue rosuvastatin. FOLLOW UP: RTC Below & sooner PRN UPCOMING APPOINTMENTS: 07/28/2024 13:00 CWM/SO/PHARM/PACT 2 09/05/2024 08:30 CWM/NO/OPTOMETRY/MERHAR 10/04/2024 15:00 CWM/SO/PODIATRY/ROSS 12/06/2024 13:30 CWM/SO/PACT 1 RESIDENTIAL TEAM LEADER 30 minutes spent in patient evaluation, data review, and patient education. All medications were reconciled during this visit. No barriers; Patient understands and agrees to current treatment plan. If pt has any questions, concerns, or changes in current health status he/she will call or come [facility] to the [facility] Medication Reconciliation: Outpatient: Has the patient been taking medications as documented in the EMLR? YES: The patient has been taking medications as documented in the EMLR. Essential Medication List for Review used to complete this medication reconciliation. INCLUDED IN THIS LIST: Alphabetical list of active outpatient prescriptions dispensed from this [place] (local) and dispensed from another [place] or [facility] facility (remote) as well as [...] whether with a VA or non-VA provider. /damaris/ HUNTER MARTINEZ NP NURSE PRACTITIONER Signed: 07/05/2024 13:43 HUNTER MARTINEZ [place] Jun 30, 2024 11:07 AM ADMINISTRATIVE NOT E: LOCAL TITLE: ADMINISTRATIVE NOTE STANDARD TITLE: ADMINISTRATIVE NOTE DATE OF NOTE: JUN 30, 2024@11:07 ENTRY DATE: JUN 30, 2024@11:07:33 AUTHOR: MK BURTON EXP COSIGNER: URGENCY: STATUS: COMPLETED [facility] [address] [place] [phone] * JUSTIN BARRAGAN [address] [place] [address] Date: JUN 30, 2024 re: This is a reminder of your upcoming PCP appt with HUNTER MARTINEZ Appointment Date: Jun@13:00 Appointment Type: In-person visit Fasting blood work NON fasting blood work LEFT MESSAGE ON VOICEMAIL TO CONFIRM APPT Sincerely, Office Staff for: HUNTER MARTINEZ Primary Care Provider [facility] [address] [address] T [phone] F [phone] Upcoming Appointments: 07/05/2024 13:00 CWM/SO/PACT 1 RESIDENTIAL TEAM LEADER 07/28/2024 13:00 CWM/SO/PHARM/PACT 2 09/05/2024 08:30 CWM/NO/OPTOMETRY/MERHAR 10/04/2024 15:00 CWM/SO/PODIATRY/ROSS APPOINTMENT [facility] (SPOPC OR SO = [address]) (GOPC OR GO = [address]) (NHM or NO = [facility]) (VVC - Video Call) (Tel-X Telephone Visit) ( - Telehealth) /damaris/ MK MUNOZ Signed: 06/30/2024 11:08 MK BURTON [place]
--- OUTSIDE RECORDS SUMMARY | 2025-03-09 15:44 | XMS_ITS | Encounter Summary ---
Author Name [facility] [place] Organization [facility] [place] Address [address] [place] [id number] Care Team Providers Care Concrete Vibrator Operator Name Role Phone HUNTER MARTINEZ Primary Care [...] [place] H Nov 16, 2014 01 [id number] LAUREL,JARRETT MEJIASONY PATIENT MEDICARE (WNR) MEDICARE (M) PART B Jul 17, 2018 PART B [id number] LAUREL,AN WIL PATIENT MEDICARE (WNR) MEDICARE (M) PART A Jul 17, 2018 PART A [id number] LAUREL,AN WIL PATIENT MEDICARE (WNR) MEDICARE (M) PART A Jul 17, 2018 PART A [id number] LAUREL,JARRETT MEJIASONY PATIENT MEDICARE (WNR) MEDICARE (M) PART B Jul 17, 2018 PART B [id number] LAUREL,JARRETT [place] PATIENT Selected Encounter This section includes the information on record at [place] for the Encounter. Date/Time Encounter Type Encounter Description Reason Provider Source Feb 07, 2025 03:00 PM OFFICE O/P EST LOW 20 MIN PODIATRY ICD-10-CM L60.0 Ingrowing nail BLANCA PAYAN [facility] Encounter Template Text not used by [place] Assessments - Encounter Diagnoses This section includes the primary and secondary diagnoses documented for the Encounter. Date/Time Primary/Secondary Diagnosis Diagnosis Name Provider Source Feb 07, 2025 03:19 PM PRIMARY Ingrowing nail BLANCA PAYAN Feb 07, 2025 03:19 PM SECONDARY Pain in left toe(s) BLANCA PAYAN Feb 07, 2025 03:19 PM SECONDARY Pain in right toe(s) BLANCA PAYAN Feb 07, 2025 03:19 PM SECONDARY Type 2 diabetes mellitus without complications BLANCA PAYAN Plan of Treatment: Future Appointments (+ 6 months) and Future Tests (+/- 45 days) The Plan of Treatment section includes future care activities for the patient from all [place] treatmentfacilities. This section includes future appointments and future orders which are active, pending or scheduled. Future Appointments This section includes appointments that were scheduled to occur 6 months from the date of the Encounter, up to a maximum of 20 appointments. The data comes from all [place] treatment facilities. Appointment Date/Time Appointment Type Appointme nt Facility Name Feb 09, 2025 11:00 AM [facility]ATORY [facility] NONE [facility] Feb 16, 2025 11:00 AM AMBULATORY - NONE [facility] Feb 21, 2025 12:00 PM AMBUL[facility]ORY [facility] NONE [facility] [place] [facility] Feb 23, 2025 11:00 AM AM[facility]ULATORY - NONE [facility] Mar 02, 2025 11:00 AM AMBULATORY - NONE [facility] Mar 07, 2025 12:00 PM AMBULATORY - NONE [facility] [place] [facility] Mar 09, 2025 11:00 AM AMBULATORY - NONE [facility] Mar 09, 2025 01:30 PM AMBULATORY - MEDICINE [facility] [place] [facility] April 04, 2025 02:00 PM [facility]INE [facility] Jun 13, 2025 03:00 PM [facility]ORY [facility]INE [facility] Jun 29, 2025 03:00 PM AMBULATORY - MEDICINE [place] [facility] [place] [facility] Active, Pending, and Scheduled Orders This [...] 09:49 AM Consult Order COMMUNITY CARE-PULMONARY Cons Ruby Software Developer's Choice [facility] Social History: Smoking Status (Most current) and [...] Facil ity May 27, 2022 09:30 AM IA-TOBACCO NEVER USED [facility] Tobacco Use History This section includes a history of the smoking, or tobacco-related health factors, that were collected on or before the date of the Encounter. The data comes from the [place] facility where the Encounter took place. Date/Time Smoking Status/Tobacco Use Comment F acility Jan 11, 2020 10:38 AM [place]-TOBACCO NEVER USED [facility] Jan 25, 2019 01:47 PM VA-TOBACCO NEVER USED [facility] Feb 04, 2018 01:53 PM LIFETIME NON-TOBACCO USER [facility] Feb 04, 2017 10:10 AM LIFETIME NON-TOBACCO USER [facility] Jul 12, 2015 08:31 AM LIFETIME NON-TOBACCO USER [facility] Advance Directives: All historical and current Section [...] Encounter. Date/Time Encounter Note(s) Provider Source Feb 07, 2025 02:25 PM PODIATRY NOTE: LOCAL TITLE: PODIATRY NOTE STANDARD TITLE: PODIATRY NOTE DATE OF NOTE: FEB 07, 2025@14:25 ENTRY DATE: FEB 07, 2025@14:25:08 AUTHOR: BLANCA PAYAN COSIGNER: URGENCY: STATUS: COMPLETED HAS RECEIVED BOTH COVID VACCINE DOSES + 4 BOOSTERS AT [facility] LAST SEEN FOR TREATMENT: 10/04/2024 S: Pt. is a 69 yo alert [facility] who presents for continued podiatric evaluation [...] BEE STINGS Previous Surgery/Hospitalization: N/A *NOTE: A1c= 6.0 (LAST TAKEN: 10/2024) FBS= 207-meter RISK =-2 HEIGHT:236 lb [107.3 kg] (07/05/2020 11:00) WEIGHT:71 [...] present physical-medical status. Protective sensation utilizing a Majestic-Yoana lOg monofilament is 10/10 bilateral. BIOMECHANICAL: Exam is deferred at this time [...] underlying medical conditions. Return to Clinic: ( 06/13 @ 3PM) DISCUSSED HIS PARTICIPATING IN A [employer] PROGRAM IN [place] AND HE IS ENJOYING THE EXERCISES IT IS INDOORS AND WEATHER IS NOT A FACTOR *DISCUSSED NEW PROTOCOLS AND CALLED CARYL TODAY [...] HIS HEEL CALLUS AND IT IS IMPROVED Medication Reconciliation: PERFORMED TODAY - SEE BELOW. [...] Remote Allergy/ADR Data available for this patient [place] [facility] [facility] [place] [facility] [place] [facility] PEN[place] Med Recon NoGlossary (Tool #1) INCLUDED [...] display of VA prescriptions dispensed from another VA or DoD facility (remote) is limited to active outpatient prescription entries matched to National Drug File at the originating site and may not include some items such as investigational drugs, compounds, etc. NOT INCLUDED IN THIS LIST: Medications self-entered by the patient into personal health records (i.e. [facility]) are NOT included in this list. Non-VA medications documented outside this [place], remote inpatient orders (regardless of status) and remote clinic medications are NOT included in this list. The patient and provider must always discuss medications the patient is taking, regardless of where the medication was dispensed or obtained. OUTPT ALBUTEROL 90MCG (CFC-F) 200D ORAL INHL (Status = Active) INHALE 2 PUFFS BY MOUTH EVERY 4 HOURS NEEDED FOR ASTHMA ATTACK Rx# [id number] Last Released: 09/27/24 Qty/Days Supply: Rx Expiration Date: 09/22/25 Refills Remainin Indication: FOR ASTHMA ATTACK Non-VA ASCORBIC ACID 500MG TAB TAKE TWO TABLETS BY MOUTH ONCE DAILY Medication prescribed by Non-VA provider. Non-VA BISACODYL 5MG EC TAB TAKE ONE TABLET BY MOUTH TWICE DAILY Medication prescribed by Non-VA provider. Non-VA CHOLECALCIF 50MCG (D3-2,000UNIT) TAB TAKE ONE TABLET BY MOUTH DAILY Medication prescribed by Non-VA provider. Non-VA DOCUSATE NA 100MG CAP TAKE 1 CAPSULE BY MOUTH TWICE DAILY Medication prescribed by Non-VA provider. OUTPT EMPAGLIFLOZIN 25MG TAB (Status = Active) TAKE ONE TABLET BY MOUTH ONCE DAILY FOR TYPE 2 DIABETES MELLITUS Rx# [id number] Last Released: 12/28/24 Qty/Days Supply: Rx Expiration Date: 08/18/25 Refills Remainin Indication: FOR TYPE 2 DIABETES MELLITUS Non-VA FENOFIBRATE 145MG TAB TAKE ONE TABLET BY MOUTH ONCE DAILY Medication prescribed by Non-VA provider. Indication: FOR HIGH CHOLESTEROL Non-VA FLAXSEED CAP,ORAL TAKE BY MOUTH DAILY OUTPT FLUTICAS 250/SALMETEROL 50 INHL DISK 60 (Status = Active) INHALE 1 PUFF BY MOUTH TWICE DAILY Rx# [id number] Last Released: 12/28/24 Qty/Days Supply: 12/15 Rx Expiration Date: 09/22/25 Refills Remainin OUTPT GLUCOSE 4GM CHEW TAB (Status = Discontinued) CHEW FOUR TABLETS BY MOUTH NEEDED FOR LOW BLOOD SUGAR Rx# [id number] Last Released: 11/10/24 Qty/Days Supply: Rx Expiration Date: 07/06/25 Refills Remainin Indication: FOR LOW BLOOD SUGAR OUTPT GLUCOSE 4GM CHEW TAB (Status = Active) CHEW FOUR TABLETS BY MOUTH NEEDED FOR LOW BLOOD SUGAR Rx# [id number] Last Released: 01/24/25 Qty/Days Supply: Rx Expiration Date: 01/19/26 Refills Remainin Indication: FOR LOW BLOOD SUGAR OUTPT INSULIN,GLARGINE-YFGN 100UNIT/ML PEN 3ML (Status = Active) INJECT 10 UNITS SUBCUTANEOUSLY ONCE DAILY FOR DIABETES Rx# [id number] Last Released: 11/28/24 Qty/Days Supply: Rx Expiration Date: 08/18/25 Refills Remainin Indication: FOR DIABETES OUTPT LEVOTHYROXINE NA 150MCG TAB (Status = Active) TAKE ONE TABLET BY MOUTH EVERY MORNING 30 MINUTES BEFORE BREAKFAST FOR THYROID - TAKE ON AN EMPTY STOMACH WITH A FULL GLASS OF WATER Rx# [id number] Last Released: 01/14/25 Qty/Days Supply: Rx Expiration Date: 08/24/25 Refills Remainin Non-VA LISINOPRIL 20MG TAB TAKE ONE TABLET BY MOUTH ONCE DAILY Medication prescribed by Non-VA provider. OUTPT METFORMIN HCL 1000MG TAB (Status = Active) TAKE ONE TABLET BY MOUTH TWICE DAILY FOR DIABETES Rx# [id number] Last Released: 12/05/24 Qty/Days Supply: Rx Expiration Date: 08/18/25 Refills [...] AT BEDTIME FOR TOOTH DECAY PREVENTION Rx# [id number] Last Released: 09/27/24 Qty/Days Supply: 60 Rx Expiration Date: 09/23/25 Refills Remainin Indication: FOR TOOTH DECAY PREVENTION SUPPLIES OUTPT GLUCOSE SENSOR DEXCOM G7 (Status = Active) USE 1 SENSOR DIRECTED EVERY 10 DAYS Rx# [id number] Last Released: 01/30/25 Qty/Days Supply: Rx Expiration Date: 04/22/25 Refills Remainin OUTPT NEEDLE,PEN 31G,5MM (Status = Active) USE 1 NEEDLE SUBCUTANEOUSLY ONCE DAILY FOR USE WITH PEN DEVICE Rx# [id number] Last Released: 12/06/24 Qty/Days Supply: Rx Expiration Date: 08/18/25 Refills Remainin /es/ BLANCA PAYAN [facility] DIRECTOR Signed: 02/07/2025 15:20 BLANCA PAYAN [facility]
--- OUTSIDE RECORDS SUMMARY | 2025-03-09 15:44 | XMS_ITS ---
Author Name Department of [place] Organization [place] of [place] Address [address] [place] [address] Care Team Providers Care Marketing Support Manager Name Role Phone HUNTER MARTINEZ Primary Care [...] Carmona's Name Patient's Relationship to Policy Carmona [facility] MEDICAID [facility] Nov 16, 2014 01 [id number] LAUREL,JARRETT DE [place] PATIENT MEDICARE (WNR) MEDICARE (M) PART A Jul 17, 2018 PART A [id number] LAUREL,JARRETT MEJIASONY PATIENT MEDICARE (WNR) MEDICARE (M) PART B Jul 17, 2018 PART B [id number] LAUREL,JARRETT MEJIASONY PATIENT MEDICARE (WNR) MEDICARE (M) PART A Jul 17, 2018 PART A [id number] LAUREL,JARRETT MEJIASONY PATIENT MEDICARE (WNR) MEDICARE (M) PART B Jul 17, 2018 PART B [id number] LAUREL,JARRETT DE [place] PATIENT Selected Encounter This section includes the information on record at [place] for the Encounter. Date/Time Encounter Type Encounter Description Reason Pro vider Source Sep 09, 2024 04:03 PM Outpatient Encounter ADMIN PAT ACTIVTIES (SUNGNONCT) [...] Appointment Type Appointme nt Facility Name Sep 15, 2024 11:00 AM AMBULATORY - NONE [facility] Sep 22, 2024 11:00 AM AMBULATORY - NONE [facility] Sep 27, 2024 12:00 PM AMBULATORY - NONE [facility] [place] [facility] Sep 28, 2024 04:00 PM AMBULATORY - REHAB MEDICIN E [facility] [place] [facility] Oct 04, 2024 03:00 PM [facility] Oct 06, 2024 11:00 AM AMBULATORY - NONE [facility] Oct 11, 2024 12:00 PM AMBULATORY - NONE [facility] [place] [facility] Oct 20, 2024 11:00 AM AMBULATORY - NONE [facility] Oct 25, 2024 12:00 PM AMBULATORY - NONE [facility] [place] [facility] Oct 27, 2024 11:00 AM AMBULATORY - NONE [facility] Oct 27, 2024 02:30 PM AMBULATORY - MEDICINE [facility] [place] [facility] Nov 03, 2024 09:00 AM AMBULATORY - MEDICINE [facility] [place] [facility] Nov 03, 2024 11:00 AM AMBULATORY - NONE [facility] Dec 01, 2024 08:30 AM AMBULATORY - REHAB MEDICIN E [facility] [place] [facility] Dec 06, 2024 01:30 PM [facility]ORY - [facility]ICINE [facility] Dec 08, 2024 11:00 AM AMBULATORY - NONE [facility] Dec 13, 2024 12:00 PM AMBULATORY - NONE [facility] [place] [facility] Dec 15, 2024 11:00 [facility] Dec 15, 2024 02:30 PM AMBULATORY - MEDICINE [facility] [place] [facility] Dec 29, 2024 11:00 AM AMBULATORY - NONE [facility] Lab Results: +/- 30 days of the encounter This section includes the Chemistry and Hematology Lab Results on record with [place] for the patient. Radiology Reports and Pathology Reports are provided separately, in subsequent sections. Lab Results This section contains the Chemistry/Hematology Results that were resulted 30 days before or 30 daysafter the date of the Encounter. Date/Time Source Result Type Result - Unit Interpretation Reference Range Specimen Type Comment Aug 16, 2024 02:05 PM [facility] T3, FREE (QU) SERUM Specimen Type: SERUM Comment: Test Performed by [employer] [facility], [address] [place] [address] Benjamin Ortiz M.D., Ph.D., Director of Laboratories , [facility] [id number] TEST PERFORMED AT: , Ordering Provider: ESTEFANI QUESADA Report Released Date/Time: Aug 16, 2024 06:36 AM Reporting Lab: [facility] [address] [facility] [address] Performing Lab: [place] [facility] [place] [facility] [address] [address] T3, FREE (QU) 2.3 pg/mL 2.3-4.2 Aug 16, 2024 02:05 PM [facility] THYROID TOTAL T4 SERUM Specimen Type: SERUM No comment entered. Ordering Provider: ESTEFANI QUESADA Report Released Date/Time: Aug 16, 2024 06:36 AM Reporting Lab: [facility] [place] [facility] [address] [facility] [address] Performing Lab: [place] [facility] [place] [facility] [address] [facility] [address] THYROID TOTAL T4 7.92 ug/dL 4.5-12.0 Aug 16, 2024 02:05 PM [facility] TSH SERUM Specimen Type: SERUM No comment entered. Ordering Provider: ESTEFANI QUESADA Report Released Date/Time: Aug 16, 2024 06:36 AM Reporting Lab: [facility] [address] [facility] [address] Performing Lab: [facility] [address] [facility] [address] TSH 0.98 u[IU]/mL 0.35-5.00 Social History: Smoking [...] 10, 2023 01:11 PM VA-TOBACCO NEVER USED [facility] Advance Directives: All historical and current Section Date Range: From patient's date of to the date document was created. This section includes ALL of a patient's completed or amended [place] Advance and Rescinded Directives. The entries below indicate that a directive exists for the patient, but an actual copy is not included with this document. The data comes from all [place] facilities. Date Advance Directives Provider Source Aug 07, 2015 ADVANCE DIRECTIVE [facility] Encounter Notes: All associated encounter notes This section contains the clinical notes associated to the Encounter. Date/Time Encounter Note(s) Provider Source Sep 12, 2024 12:51 PM ADDENDUM: LOCAL TITLE: Addendum STANDARD TITLE: ADDENDUM DATE OF NOTE: SEP 12, 2024@12:51:59 ENTRY DATE: SEP 12, 2024@12:52 AUTHOR: HUNTER MARTINEZ COSIGNER: URGENCY: STATUS: COMPLETED Medication was discontinued in June. /damaris/ HUNTER MARTINEZ NP NURSE PRACTITIONER Signed: 09/12/2024 12:52 Receipt Acknowledged By: 11/18/2024 10:06 /es/ HAMILTON JENKINS CPhT [place]INGER, MS/PHARMACY CUSTOMER CARE 09/12/2024 14:51 /es/ JIHAN R ANDERS, BLANKER OPERATOR BLANKER OPERATOR ====== --- Original Document --- 09/09/24 V1 PHARMACY CUSTOMER CARE MEDICATION RENEWAL: Date: Aug Division: [place] Pt referred by Pharmacy Call Center for medication renewal: Non-controlled/maintenan ce medication Medications requested: [id number] NIACIN (SLO-NIACIN) 500MG TAB,SA Defer to primary care provider To be mailed . Please review and renew if appropriate. *This note was generated by [facility] Pharmacy Customer Care. If you have any questions or need assistance, do not contact this author. Please refer all questions to your local, on-site pharmacy departments. /damaris/ HAMILTON JENKINS CPhT [place], [place]/PHARMACY CUSTOMER CARE Signed: 09/09/2024 16:03 Receipt Acknowledged By: 09/12/2024 12:50 /damaris/ HUNTER MARTINEZ NP NURSE PRACTITIONER 09/12/2024 14:10 /damaris/ TERESE MAYER RN REGISTERED NURSE HUNTER MARTINEZ [facility] Sep 09, 2024 04:03 PM PHARMACY NOTE: LOCAL TITLE: V1 PHARMACY CUSTOMER CARE MEDICATION RENEWAL STANDARD TITLE: PHARMACY NOTE DATE OF NOTE: SEP 09, 2024@16:03 ENTRY DATE: SEP 09, 2024@16:03:17 AUTHOR: HAMILTON JENKINS EXP COSIGNER: URGENCY: STATUS: COMPLETED V1 PHARMACY CUSTOMER CARE MEDICATION RENEWAL Has ADDENDA Date: Aug Division: [place] Pt referred by Pharmacy Call Center for medication renewal: Non-controlled/maintenan ce medication Medications requested: [id number] NIACIN (SLO-NIACIN) 500MG TAB,SA Defer to primary care provider To be mailed . Please review and renew if appropriate. *This note was generated by [facility] Pharmacy Customer Care. If you have any questions or need assistance, do not contact this author. Please refer all questions to your local, on-site pharmacy departments. /damaris/ HAMILTON JENKINS CPhT [place]ER, [place]/PHARMACY CUSTOMER CARE Signed: 09/09/2024 16:03 Receipt Acknowledged By: 09/12/2024 12:50 /damaris/ HUNTER MARTINEZ NP NURSE PRACTITIONER 09/12/2024 14:10 /es/ TERESE MAYER RN REGISTERED NURSE 09/12/2024 ADDENDUM STATUS: COMPLETED Medication was discontinued in June. /damaris/ HUNTER MARTINEZ NP NURSE PRACTITIONER Signed: 09/12/2024 12:52 Receipt Acknowledged By: * AWAITING SIGNATURE * HAMILTON JENKINS * AWAITING SIGNATURE * JIHAN MCNAMARA CHELSEY R [facility]
--- OUTSIDE RECORDS SUMMARY | 2025-03-09 15:44 | XMS_ITS | Continuity of Care Document ---
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 It does not include entries that were removed or entered in error. Problem Status Onset Date Problem Type Date of Resolution Comments Source Constipation Active Condition [facility] Diabetes mellitus Active Condition Au g 2014 Entered By: MIGUE ROGERS Comment: hx of diabetic coma w hospitalization ~20 years ago [facility] Exposure to potentially hazardous substance Active Condition [facility] Health maintenance alteration Active Condition Jan 24, 2020 Entered By: MIGUE ROGERS Comment: AAA screeb NEG 12/26/17 per PCP noteJan 24, 2020 Entered By: MIGUE ROGERS Comment: colon 11/29/15 Dr. 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 [facility] outside providers Active Condition Au 2014 Entered By: MIGUE ROGERS Comment: PCP: Dr. Nadeen Balbuena 2014 Entered By: MIGUE ROGERS Comment: Dr. Roshni Levine [facility] 2014 Entered By: MIGUE ROGERS Comment: registered massage therapist: Dr. Pineda [facility] Parapelvic renal cyst Active Condition April 02, 2018 Entered By: MIGUE ROGERS Comment: 01/03 CT w contrast LEft kidney [facility] Sarcoidosis Active Condition Oct 17, 2019 Entered By: MIGUE ROGERS Comment: seen by pulm Dr. Kellogg 05/06/19 w plan for PFT, CT chest 6 months (will consider EBUS)Apr 30, 2022 Entered By: MIGUE ROGERS Comment: COPD [facility] Schizophrenia Active Condition Jun Entered By: MIGUE ROGERS Comment: history of hospitalization 2012 [facility] Thyroid cancer Active Condition Jun 172014 Entered By: MIGUE ROGERS Comment: removed > 20 years ago [facility] Diagnosis: ICD-10-CM Z72.3 Lack of physical exercise Active Diagnosis [facility] Diagnosis: ICD-10-CM Z71.3 Dietary counseling and surveillance Active Diagnosis [facility] Diagnosis: ICD-10-CM E66.811 Obesity, class 1 Active Diagnosis [facility] Diagnosis: ICD-10-CM L60.0 Ingrowing nail Active Diagnosis [facility] Diagnosis: ICD-10-CM E11.65 Type 2 diabetes mellitus with hyperglycemia Active Diagnosis [facility] Diagnosis: ICD-10-CM Z46.1 Encounter for fitting and adjustment of hearing aid Active Diagnosis [facility] Diagnosis: ICD-10-CM E11.9 Type 2 diabetes mellitus without complications Active Diagnosis [facility] Diagnosis: ICD-10-CM Z68.32 Body mass index [BMI] 32.0-32.9, adult Active Diagnosis [facility] Diagnosis: ICD-10-CM Z68.33 Body mass index [BMI] 33.0-33.9, adult Active Diagnosis [facility] Diagnosis: ICD-10-CM Z46.0 Encounter for fit/adjst of spectacles and contact lenses Active Diagnosis [facility] Diagnosis: ICD-10-CM E11.3292 Type 2 diab with mild nonp rtnop without mclr edema, l eye Active Diagnosis [facility] Diagnosis: ICD-10-CM E66.09 Other obesity due to excess calories Active Diagnosis [place] Diagnosis: ICD-10-CM H90.3 Sensorineural hearing loss, bilateral Active Diagnosis [facility] Diagnosis: ICD-10-CM E66.8 Other obesity Active Diagnosis [facility] Medications Combined list of outpatient medications from Department of Defense and [facility] facilities.Medications provided include 1) outpatient medications from the last 15 months, and 2) patient-reported medications. Medication Details Route Status Patient Instructions Prescription Expires Prescription Number Last Dispense Date Ordering Provider Order Date Order Qty Source ALBUTEROL 90MCG/ACTUA T (CFC-F) INHL,ORAL,8 .5GM DOSE COUNTER INHALE 2 PUFFS BY MOUTH EVERY 4 HOURS NEEDED FOR ASTHMA ATTACK RESPIR ATORY (INHAL ATION) ACTIVE 09/22/2025 [id number] Janelle MARTINEZ 2023 2 [place] ALBUTEROL 90MCG/ACTUA T (CFC-F) INHL,ORAL,8 .5GM DOSE COUNTER INHALE 2 PUFFS BY MOUTH EVERY 4 HOURS NEEDED FOR ASTHMA ATTACK RESPIR ATORY (INHAL ATION) DISCONT INUED 12/10/2024 [id number] 4 BLAINE MICHAUD 2023 2 [place] ASCORBIC ACID 500MG TAB TAKE TWO TABLETS BY MOUTH ONCE DAILY ORAL ACTIVE DOT BRINK [place] BISACODYL 5MG TAB,EC TAKE ONE TABLET BY MOUTH TWICE DAILY ORAL ACTIVE DOT BRINK [place] CHOLECALCIF TRUDI 50MCG (2,000UNIT) TAB TAKE ONE TABLET BY MOUTH DAILY ORAL ACTIVE DOT BRINK CA 2014 [facility] IELD DOCUSATE NA 100MG CAP TAKE 1 CAPSULE BY MOUTH TWICE DAILY ORAL ACTIVE DOT BRINK [place] 2014 [place] EMPAGLIFLOZ IN 25MG TAB TAKE ONE TABLET BY MOUTH ONCE DAILY FOR TYPE 2 DIABETES MELLITUS ORAL ACTIVE 08/18/2025 [id number] 5 THOMPSONFishA A 2023 90 [place] EMPAGLIFLOZ IN 25MG TAB TAKE ONE TABLET BY MOUTH ONCE DAILY FOR TYPE 2 DIABETES MELLITUS ORAL DISCONT INUED 07/13/2025 [id number] Fish THOMPSONA A 2023 90 [place] EMPAGLIFLOZ IN 25MG TAB TAKE ONE TABLET BY MOUTH ONCE DAILY FOR DIABETES ORAL 07/09/2024 [id number] Fish THOMPSON A 2022 90 [place] FENOFIBRATE 145MG TAB TAKE ONE TABLET BY MOUTH ONCE DAILY ORAL ACTIVE BLAINE MICHAUD 2023 [place] FLAXSEED CAP,ORAL TAKE BY MOUTH DAILY ORAL ACTIVE DOT BRINK 2014 [place] FLUTICASONE 250MCG/SALM ETEROL 50MCG INHL,ORAL,D ISKUS,60 INHALE 1 PUFF BY MOUTH TWICE DAILY RESPIR ATORY (INHAL ATION) ACTIVE 09/22/2025 [id number] 5 Janelle MARTINEZ A 2023 1 [place] FLUTICASONE 250MCG/SALM ETEROL 50MCG INHL,ORAL,D ISKUS,60 INHALE 1 PUFF BY MOUTH TWICE DAILY RESPIR ATORY (INHAL ATION) DISCONT INUED 12/10/2024 [id number] 4 BLAINE MICHAUD 2023 1 [place] GLUCOSE 4GM TAB,CHEW CHEW FOUR TABLETS BY MOUTH NEEDED FOR LOW BLOOD SUGAR ORAL ACTIVE 01/19/2026 [id number] 5 Janelle MARTINEZ A 2024 20 [place] GLUCOSE 4GM TAB,CHEW CHEW FOUR TABLETS BY MOUTH NEEDED FOR LOW BLOOD SUGAR ORAL DISCONT INUED 07/06/2025 [id number] 4 Janelle MARTINEZD A 2023 20 [place] INSULIN,GLA RGINE-YFGN 100UNIT/ML INJ PEN,3ML INJECT 10 UNITS SUBCUTAN EOUSLY ONCE DAILY FOR DIABETES SUBCUT ANEOUS ACTIVE 08/18/2025 [id number] 5 Fish THOMPSON A 2023 5 [place] LEVOTHYROXI NE NA 150MCG TAB TAKE ONE TABLET BY MOUTH EVERY MORNING 30 MINUTES BEFORE BREAKFAS T FOR THYROID - TAKE ON AN EMPTY STOMACH WITH A FULL GLASS OF WATER ORAL ACTIVE 08/24/2025 [id number] 5 Janelle MARTINEZ A 2023 90 [place] LEVOTHYROXI NE NA 150MCG TAB (SYNTHROID) TAKE ONE TABLET BY MOUTH EVERY MORNING 30 MINUTES BEFORE BREAKFAS T FOR THYROID - TAKE ON AN EMPTY STOMACH WITH A FULL GLASS OF WATER ORAL DISCONT INUED 11/18/2024 [id number] 4 BLAINE MICHAUD 2023 90 [place] LISINOPRIL 20MG TAB TAKE ONE TABLET BY MOUTH ONCE DAILY ORAL ACTIVE DOT [place] CBOC-OH METFORMIN HCL 1000MG TAB TAKE ONE TABLET BY MOUTH TWICE DAILY FOR DIABETES ORAL ACTIVE 08/18/2025 [id number] 5 Fish THOMPSON A 2023 180 [place] METFORMIN HCL 1000MG TAB TAKE ONE TABLET BY MOUTH TWICE DAILY FOR DIABETES ORAL DISCONT INUED 10/19/2024 [id number] 4 BLAINE MICHAUD 2023 180 [place] MULTIVITAMI NS W/MINERALS TAB TAKE ONE TABLET BY MOUTH AT BEDTIME ORAL ACTIVE DOT [place] NIACIN (SLO-NIACIN ) 500MG TAB,SA TAKE THREE TABLETS BY MOUTH ONCE DAILY PER DR. CASANOVA ORAL DISCONT INUED BY PROVIDE R 10/23/2024 [id number] 4 BLAINE MICHAUD 2022 300 [place] OLANZAPINE 15MG TAB TAKE ONE TABLET BY MOUTH AT BEDTIME ORAL ACTIVE DOT BRINK 2020 [facility] IELD POLYETHYLEN E GLYCOL 3350 PWDR,ORAL TAKE 17 GRAMS (1 CAPFUL) BY MOUTH AT BEDTIME ORAL ACTIVE DOT BRINK [place] SIMVASTATIN 80MG TAB TAKE ONE-HALF TABLET BY MOUTH AT BEDTIME ORAL ACTIVE DOT BRINK 2019 [facility] IELD SODIUM FLUORIDE 1.1% GEL,DENT APPLY PEA SIZE AMOUNT TO TEETH AT BEDTIME FOR TOOTH DECAY PREVENTI ON DENTAL ACTIVE 09/23/2025 [id number] 5 Janelle MARTINEZD A 2023 60 [place] SODIUM FLUORIDE 1.1% GEL,DENT APPLY PEA SIZE AMOUNT TO TEETH AT BEDTIME FOR TOOTH DECAY PREVENTI ON DENTAL 07/13/2024 [id number] WINTER SUTTON S 2022 180 [place] Allergies, Adverse Reactions, Alerts Combined list of allergies from Department of Defense and Veterans Affairs facilities. It does not include entries that were removed or entered in error. Substance Category Reaction Severity Reaction type Status Date Reported Comments Source BEE STINGS Propensity to adverse reaction (finding) active 5 [facility] [employer] Entertainment[employer] [facility] PENICILLIN Propensity to adverse reactions to drug (finding) active 5 [facility] [address] [facility] [facility] Immunizations Combined list of available immunizations from the Department of Defense and Veterans Affairs facilities. Immunization Series Date Given Administered By Site Reaction Lot Number CVX Code Drug Outside Sales Executive Status Comments Source INFLUENZA, UNSPECIFIED FORMULATION 2023 88 complet ed HISTORICA L INFORMATI ON - FROM PATIENT'S RECALL, [facility] [address] [employer] [facility] INFLUENZA, UNSPECIFIED FORMULATION 2022 88 complet ed Booster for Series, HISTORICA L INFORMATI ON - FROM PATIENT'S WRITTEN RECORD, Fluzone high dose quadriva 0.[address] [facility] [phone] [facility]ie[facility] [place] [facility] Kalin Simons [facility] [address] [place] [facility] COVID-19 (MODERNA), MRNA, LNP-S, PF, 50 MCG/0.5 ML (AGES 12+ YEARS) 1 2022 312 complet ed HISTORICA L INFORMATI ON - FROM PATIENT'S WRITTEN RECORD, [facility] Childs-Sp ikevax 50mcg/0.5 ml ayan [facility] [id number] 2-96 [facility] PNEUMOCOCCAL CONJUGATE PCV20, POLYSACCHARID E [id number] CONJUGATE, ADJUVANT, PF 2022 JANETH ALDRIDGE LEFT DELTO ID [id number] 216 complet ed [facility] [place] [facility] [place], [facility] I[place] INFLUENZA, UNSPECIFIED FORMULATION 2021 88 complet ed HISTORICA L INFORMATI ON - SOURCE UNSPECIFI ED, [facility] COVID-19 (MODERNA), MRNA, LNP-S, BIVALENT BOOSTER, PF, 50 MCG/0.5 ML OR 25MCG/0.25 ML DOSE 1 2021 229 complet ed [facility] COVID-19 (MODERNA), MRNA, LNP-S, PF, 100 MCG/0.5ML DOSE OR 50 MCG/0.25ML DOSE 4 2021 207 complet ed MOD; [id number] ; 2 [facility] I[place] INFLUENZA VACCINE, QUADRIVALENT, ADJUVANTED 2021 205 complet ed [facility] PNEUMOCOCCAL POLYSACCHARID E PPV23 2021 33 complet ed [facility] ZOSTER RECOMBINANT 2 2021 187 complet ed [facility] COVID-19 (MODERNA), MRNA, LNP-S, PF, 100 MCG/0.5 ML DOSE 3 2020 207 complet ed MOD; [id number]; [facility] IELD COVID-19 (MODERNA), MRNA, LNP-S, PF, 100 MCG/0.5 ML DOSE 2 2020 207 complet ed MOD; [id number]; [facility] [place] COVID-19 (MODERNA), MRNA, LNP-S, PF, 100 MCG/0.5 ML DOSE 1 2020 207 complet ed MOD; [id number]; 1 [place] TD (ADULT), 2 LF TETANUS TOXOID, PRESERVATIVE FREE, ADSORBED 2019 09 complet ed Site: Left Deltoid [place] ZOSTER RECOMBINANT 1 2019 187 complet ed [place] INFLUENZA, INJECTABLE, QUADRIVALENT, PRESERVATIVE FREE 2018 150 complet ed 02, Partner: [facility]. Administe red by: KARL FARIAS (HUM=[phone]). Partner 5 Lot#: [id number] Mfr: Oxagen hKline; Dosage: 0.5 [facility] INFLUENZA, SEASONAL, INJECTABLE 2018 141 complet ed [facility] INFLUENZA, SEASONAL, INJECTABLE 2017 141 complet ed [facility] INFLUENZA, SEASONAL, INJECTABLE 2016 141 complet ed [facility] ZOSTER (SHINGLES) (HISTORICAL) 2014 121 complet ed Proximal Left Arm [place] DTAP, UNSPECIFIED FORMULATION 2008 107 complet ed [facility] Results Combined list of recent chemistry, hematology and other laboratory results from Department of Defense and Veterans Affairs, ranging from 15 months to all on record, depending upon the facility. Order Name Results Value Reference Range Date Interpretation Specimen Comments Source LIPID PANEL, NON FASTING CHOLESTEROL [MASS/VOLUM E] IN SERUM OR PLASMA 144 mg/dL 12/06 Specimen Type: SERUM No comment entered. Ordering Provider: MAGDA MARTINEZ A Report Released Date/Time: Dec 06, 2024 01:15 PM Reporting Lab: [facility] [address] [facility] CITYTherapeutic Monitoring Services [facility] [address] [address] Performing Lab: [facility] [address] [address] [facility] LIPID PANEL, NON FASTING TRIGLYCERID E [MASS/VOLUM E] IN SERUM OR PLASMA 293 mg/dL 0 - 150 12/06 H Specimen Type: SERUM No comment entered. Ordering Provider: MAGDA MARTINEZ A Report Released Date/Time: Dec 06, 2024 01:15 PM Reporting Lab: [facility] [address] [address] Performing Lab: [facility] [address] [address] [place] LIPID PANEL, NON FASTING CHOLESTEROL IN LDL [MASS/VOLUM E] IN SERUM OR PLASMA BY CALCULATION 45 mg/dL 0 - 129 12/06 Specimen Type: SERUM No comment entered. Ordering Provider: MAGDA MARTINEZ A Report Released Date/Time: Dec 06, 2024 01:15 PM Reporting Lab: [facility] [address] [address] Performing Lab: [facility] [address] [address] [place] LIPID PANEL, NON FASTING CHOLESTEROL .TOTAL/CHOL ESTEROL IN HDL [MASS RATIO] IN SERUM OR PLASMA 3.6 12/06 Specimen Type: SERUM No comment entered. Ordering Provider: MAGDA MARTINEZ A Report Released Date/Time: Dec 06, 2024 01:15 PM Reporting Lab: [facility] [address] [address] Performing Lab: [facility] [address] [address] [place] LIPID PANEL, NON FASTING CHOLESTEROL IN HDL [MASS/VOLUM E] IN SERUM OR PLASMA 40 mg/dL 40 - 60 12/06 Specimen Type: SERUM No comment entered. Ordering Provider: MAGDA MARTINEZ A Report Released Date/Time: Dec 06, 2024 01:15 PM Reporting Lab: [facility] [address] [address] Performing Lab: [facility] [address] [address] [place] LIVER FUNCTION PROTEIN [MASS/VOLUM E] IN SERUM OR PLASMA 7.3 g/dL 6.0 - 8.3 12/06 Specimen Type: SERUM No comment entered. Ordering Provider: MAGDA MARTINEZ A Report Released Date/Time: Dec 06, 2024 01:15 PM Reporting Lab: [facility] [address] [address] Performing Lab: [facility] [address] [address] [place] LIVER FUNCTION ALBUMIN [MASS/VOLUM E] IN SERUM OR PLASMA 4.1 g/dL 3.5 - 5.0 12/06 Specimen Type: SERUM No comment entered. Ordering Provider: MAGDA MARTINEZ A Report Released Date/Time: Dec 06, 2024 01:15 PM Reporting Lab: [facility] [address] [address] Performing Lab: [facility] [address] [address] [place] LIVER FUNCTION ALKALINE PHOSPHATASE [ENZYMATIC ACTIVITY/VO LUME] IN SERUM OR PLASMA 45 U/L 40 - 150 12/06 Specimen Type: SERUM No comment entered. Ordering Provider: MAGDA MARTINEZ A Report Released Date/Time: Dec 06, 2024 01:15 PM Reporting Lab: [facility] [address] [address] Performing Lab: [facility] [address] [address] [place] L[place] ASPARTATE AMINOTRANSF ERASE [ENZYMATIC ACTIVITY/VO LUME] IN SERUM OR PLASMA 24 U/L 5 - 34 12/06 Specimen Type: SERUM No comment entered. Ordering Provider: MAGDA MARTINEZ A Report Released Date/Time: Dec 06, 2024 01:15 PM Reporting Lab: [facility] [address] [address] Performing Lab: [facility] [address] [address] [place] LIVER FUNCTION ALANINE AMINOTRANSF ERASE [ENZYMATIC ACTIVITY/VO LUME] IN SERUM OR PLASMA 24 U/L 12/06 Specimen Type: SERUM No comment entered. Ordering Provider: MAGDA MARTINEZ A Report Released Date/Time: Dec 06, 2024 01:15 PM Reporting Lab: [facility] [address] [address] Performing Lab: [facility] [facility] [address] [address] [place] LIVER FUNCTION BILIRUBIN.T OTAL [MASS/VOLUM E] IN SERUM OR PLASMA 0.3 mg/dL 0.2 - 1.2 12/06 Specimen Type: SERUM No comment entered. Ordering Provider: MAGDA MARTINEZ Report Released Date/Time: Dec 06, 2024 01:15 PM Reporting Lab: [facility] [address] [address] Performing Lab: [facility] [address] [address] [place] HEMOGLOBI N A1C PANEL HEMOGLOBIN A1C/HEMOGLO BIN.TOTAL IN BLOOD BY HPLC 6.0 4.0 - 5.6 10/27 H Specimen Type: BLOOD Comment: Values obtained from A1C measurement s can vary. For atypical A1C assays, a reported value of 7.0 could actually be between 6.72 and 7.28 if measured by a reference method. A reported value of 9.0 could actually be between 8.73 and 9.27. Ref: http://www. ngsp.org/[place] Pdata.asp Ordering Provider: YOLANDE THOMPSON Report Released Date/Time: Oct 27, 2024 02:44 PM Reporting Lab: [facility] [address] Performing Lab: [facility] [address] [address] [facility] CBC LEUKOCYTES [#/VOLUME] IN BLOOD BY AUTOMATED COUNT 6.22 10*3/u L 4.50 - 11.00 10/27 Specimen Type: BLOOD No comment entered. Ordering Provider: YOLANDE THOMPSON Report Released Date/Time: Oct 27, 2024 02:44 PM Reporting Lab: [facility] [address] [address] Performing Lab: [facility] [place] [address] [facility] [place] [facility] CBC ERYTHROCYTE S [#/VOLUME] IN BLOOD BY AUTOMATED COUNT 5.33 10*6/u L 4.23 - 5.66 10/27 Specimen Type: BLOOD No comment entered. Ordering Provider: YOLANDE THOMPSON Report Released Date/Time: Oct 27, 2024 02:44 PM Reporting Lab: [facility] [facility] [address] [address] Performing Lab: [facility] [place] [facility] [address] [address] [facility] [facility] [facility] CBC HEMOGLOBIN [MASS/VOLUM E] IN BLOOD 16.2 g/dL 12.8 - 17 10/27 Specimen Type: BLOOD No comment entered. Ordering Provider: YOLANDE THOMPSON Report Released Date/Time: Oct 27, 2024 02:44 PM Reporting Lab: [facility] [address] [address] Performing Lab: [facility] [address] [address] [place] [facility] [place] [facility] CBC HEMATOCRIT [VOLUME FRACTION] OF BLOOD BY AUTOMATED COUNT 48.3 39.2 - 50.4 10/27 Specimen Type: BLOOD No comment entered. Ordering Provider: YOLANDE THOMPSON Report Released Date/Time: Oct 27, 2024 02:44 PM Reporting Lab: [facility] [address] [address] Performing Lab: [facility] [address] [address] [facility] [facility] CBC MCV [ENTITIC VOLUME] BY AUTOMATED COUNT 90.6 fL 82 - 99 10/27 Specimen Type: BLOOD No comment entered. Ordering Provider: YOLADNE THOMPSON Report Released Date/Time: Oct 27, 2024 02:44 PM Reporting Lab: [facility] [address] [address] Performing Lab: [facility] [address] [address] [facility] CBC MCHC [MASS/VOLUM E] BY AUTOMATED COUNT 33.5 g/dL 30.8 - 35.1 10/27 Specimen Type: BLOOD No comment entered. Ordering Provider: YOLANDE THOMPSON Report Released Date/Time: Oct 27, 2024 02:44 PM Reporting Lab: [facility] [place] [facility] [address] [address] Performing Lab: [facility] [place] [address] [address] [facility] [facility] [place] [facility] CBC PLATELETS [#/VOLUME] IN BLOOD BY AUTOMATED COUNT 252 10*3/u L 140 - 360 10/27 Specimen Type: BLOOD No comment entered. Ordering Provider: YOLANDE THOMPSON Report Released Date/Time: Oct 27, 2024 02:44 PM Reporting Lab: [facility] [address] [address] Performing Lab: [facility] [address] [address] [facility] [facility] CBC ERYTHROCYTE DISTRIBUTIO N WIDTH [RATIO] BY AUTOMATED COUNT 13.6 12.0 - 16.0 10/27 Specimen Type: BLOOD No comment entered. Ordering Provider: YOLANDE THOMPSON Report Released Date/Time: Oct 27, 2024 02:44 PM Reporting Lab: [facility] [place] [address] [address] Performing Lab: [facility] [place] [address] [address] [facility] CBC MCH [ENTITIC MASS] BY AUTOMATED COUNT 30.4 pg 26.2 - 32.6 10/27 Specimen Type: BLOOD No comment entered. Ordering Provider: YOLANDE THOMPSON Report Released Date/Time: Oct 27, 2024 02:44 PM Reporting Lab: [facility] [address] [address] Performing Lab: [facility] [address] [address] [facility] BASIC METABOLIC PANEL (non-fast ing) UREA NITROGEN [MASS/VOLUM E] IN SERUM OR PLASMA 19 mg/dL 7 - 25 10/27 Specimen Type: SERUM No comment entered. Ordering Provider: YOLANDE THOMPSON Report Released Date/Time: Oct 27, 2024 02:44 PM Reporting Lab: [facility] [address] [address] Performing Lab: [facility] [address] [address] [facility] BASIC METABOLIC PANEL (non-fast ing) GLUCOSE [MASS/VOLUM E] IN SERUM OR PLASMA 92 mg/dL 65 - 100 10/27 Specimen Type: SERUM No comment entered. Ordering Provider: YOLANDE THOMPSON Report Released Date/Time: Oct 27, 2024 02:44 PM Reporting Lab: [facility] [address] [address] Performing Lab: [facility] [address] [address] [facility] BASIC METABOLIC PANEL (non-fast ing) SODIUM [MOLES/VOLU ME] IN SERUM OR PLASMA 138 mmol/L 135 - 145 10/27 Specimen Type: SERUM No comment entered. Ordering Provider: YOLANDE THOMPSON Report Released Date/Time: Oct 27, 2024 02:44 PM Reporting Lab: [facility] [address] [address] Performing Lab: [facility] [address] [address] [facility] BASIC METABOLIC PANEL (non-fast ing) POTASSIUM [MOLES/VOLU ME] IN SERUM OR PLASMA 4.8 mmol/L 3.5 - 5.0 10/27 Specimen Type: SERUM No comment entered. Ordering Provider: YOLANDE THOMPSON Report Released Date/Time: Oct 27, 2024 02:44 PM Reporting Lab: [facility] [place] [address] [address] Performing Lab: [facility] [address] [address] [facility] BASIC METABOLIC PANEL (non-fast ing) CHLORIDE [MOLES/VOLU ME] IN SERUM OR PLASMA 107 mmol/L 100 - 110 10/27 Specimen Type: SERUM No comment entered. Ordering Provider: YOLANDE THOMPSON Report Released Date/Time: Oct 27, 2024 02:44 PM Reporting Lab: [facility] [address] [address] Performing Lab: [facility] [address] [facility]ITAL[facility] BASIC METABOLIC PANEL (non-fast ing) CARBON DIOXIDE, TOTAL [MOLES/VOLU ME] IN SERUM OR PLASMA 20 meq/L 20 - 30 10/27 Specimen Type: SERUM No comment entered. Ordering Provider: YOLANDE THOMPSON Report Released Date/Time: Oct 27, 2024 02:44 PM Reporting Lab: [facility] [address] [address] Performing Lab: [facility] [address] [facility]ITAL[facility] BASIC METABOLIC PANEL (non-fast ing) CREATININE [MASS/VOLUM E] IN SERUM OR PLASMA 0.84 mg/dL 0.50 - 1.40 10/27 Specimen Type: SERUM No comment entered. Ordering Provider: YOLANDE THOMPSON Report Released Date/Time: Oct 27, 2024 02:44 PM Reporting Lab: [place] [facility] [place] [address] [address] Performing Lab: [facility] [address] [facility] BASIC METABOLIC PANEL (non-fast ing) GLOMERULAR FILTRATION RATE/1.73 SQ M.PREDICTED [VOLUME RATE/AREA] IN SERUM, PLASMA OR BLOOD BY CREATININE- BASED FORMULA (CKD-EPI 2020) >90mL/ min 60 10/27 Specimen Type: SERUM No comment entered. Ordering Provider: YOLANDE THOMPSON Report Released Date/Time: Oct 27, 2024 02:44 PM Reporting Lab: [facility] [facility] [place] [address] [address] Performing Lab: [facility] [facility] [place] [facility] [address] [address] [facility] T3, FREE (QU) TRIIODOTHYR ONINE (T3) FREE [MASS/VOLUM E] IN SERUM OR PLASMA 2.3 pg/mL 2.3 - 4.2 08/16 Specimen Type: SERUM Comment: Test Performed by [facility], [facility], [address] [place] [address] Benjamin Ortiz M.D., Ph.D., Director of Laboratorie s , CLIA [id number] TEST PERFORMED AT: , Ordering Provider: PJ QUESADA Report Released Date/Time: Aug 16, 2024 06:36 AM Reporting Lab: [facility] MASSUSE[address] [address] Performing Lab: [facility]USEN[facility] [id number] [place], [place] [address]RL [facility] THYROID TOTAL T4 THYROXINE (T4) [MASS/VOLUM E] IN SERUM OR PLASMA 7.92 ug/dL 4.5 - 12.0 08/16 Specimen Type: SERUM No comment entered. Ordering Provider: PJ QUESADA Report Released Date/Time: Aug 16, 2024 06:36 AM Reporting Lab: [facility] [address] [facility] [address] Performing Lab: [facility]ITALUSEN[facility] [address] [facility] [address] [facility] [place] [facility] TSH THYROTROPIN [UNITS/VOLU ME] IN SERUM OR PLASMA 0.98 u[IU]/ mL 0.35 - 5.00 08/16 Specimen Type: SERUM No comment entered. Ordering Provider: PJ QUESADA Report Released Date/Time: Aug 16, 2024 06:36 AM Reporting Lab: [facility] [facility] [place] [address] [address] Performing Lab: [facility] [place] [facility] [address] [facility] [facility] [address] [place] [facility] [place] [facility] MICROALBU MIN CREATININ E RATIO PANEL MICROALBUMI N/CREATININ E [MASS RATIO] IN URINE cancmg /g 0 - 29.9 07/05 Specimen Type: URINE No comment entered. Ordering Provider: MAGDA MARTINEZ A Report Released Date/Time: Jul 05, 2024 01:19 PM Reporting Lab: [facility] [place] [address] [address] Performing Lab: [facility] [place] [address] [address] [place] MICROALBU MIN CREATININ E RATIO PANEL MICROALBUMI N [MASS/VOLUM E] IN URINE < 0.5mg/ dL 07/05 Specimen Type: URINE No comment entered. Ordering Provider: MAGDA MARTINEZ A Report Released Date/Time: Jul 05, 2024 01:19 PM Reporting Lab: [facility] [place] [facility] [address] [facility] [address] Performing Lab: [facility] [place] [address] [address] [place] MICROALBU MIN CREATININ E RATIO PANEL CREATININE [MASS/VOLUM E] IN URINE 19.74 mg/dL 07/05 Specimen Type: URINE No comment entered. Ordering Provider: MAGDA MARTINEZ A Report Released Date/Time: Jul 05, 2024 01:19 PM Reporting Lab: [facility] [place] [address] [address] Performing Lab: [facility] [place] [facility] [address] [facility] [facility] [address] [place] TSH THYROTROPIN [UNITS/VOLU ME] IN SERUM OR PLASMA 0.25 u[IU]/ mL 0.35 - 5.00 07/05 L Specimen Type: SERUM No comment entered. Ordering Provider: MAGDA MARTINEZ Report Released Date/Time: Jul 05, 2024 01:19 PM Reporting Lab: [facility] [place] [facility] [address] [facility] [facility] [address] Performing Lab: [facility] [facility] [place] [facility] [address] [address] [facility] Vital Signs Combined list of inpatient and outpatient Vital Signs from Department of Defense and Veterans Affairs, ranging from 12 months to all on record, depending upon the facility. Vital Sign Value Date Comments Source WEIGHT 224 03/02/2025 11:26:33 [place] BMI 31 kg/m2 03/02/2025 11:26:33 [place] WEIGHT 228 02/23/2025 11:40:05 [place] BMI 32 kg/m2 02/23/2025 11:40:05 [place] WEIGHT 228 02/16/2025 11:42:21 [place] BMI 32 kg/m2 02/16/2025 11:42:21 [place] WEIGHT 226 02/09/2025 11:42:02 [place] BMI 32 kg/m2 02/09/2025 11:42:02 [place] WEIGHT 228 02/02/2025 12:45:58 [place] BMI 32 kg/m2 02/02/2025 12:45:58 [place] Encounters Combined list of: 1) Encounters from Department of Veterans Affairs facilities going backup to the last 18 months, not all VA inpatient encounters are included; 2) Encounters from the Department of Defense facilities going backup to 280 months. 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 LINDA Reyes 09/08 [facility] [place] [facility] GROUP BEHAVE COUNS 2-10 [id number] Diagnos is: ICD-10- CM E66.8 Other obesity MIMI HELLER CHATOAN P 09/10 [place] [facility] WEIGHT MGMT CLASS [id number] Diagnos is: ICD-10- CM Z68.33 Body mass index [BMI] 33.0-33 .9, adult AMANDEEP BARNES [place] [facility] [place] [place] [facility] Outpatient Encounter [id number] 09/18 [facility] [place] [facility] MTMS BY PHARM ADDL 15 MIN [id number] Diagnos is: ICD-10- CM E11.65 Type 2 diabete s mellitu s with hypergl ycemia CATRACHITA THOMPSON A [place] [facility] [place] [facility] Outpatient Encounter [id number] 09/23 [facility] [place] [facility] GROUP BEHAVE COUNS 2-10 [id number] Diagnos is: ICD-10- CM E66.09 Other obesity due to excess calorie s MIMI HELLER P 09/24 [place] [facility] [place] [facility] Outpatient Encounter [id number] 09/25 [facility] [place] [facility] [place] [facility] Outpatient Encounter [id number] Diagnos is: ICD-10- CM E11.65 Type 2 diabete s mellitu s with hypergl ycemia IVELISSE BALDERAS III 09/30 [facility] [place] [place] WEIGHT MGMT CLASS [id number] Diagnos is: ICD-10- CM E66.09 Other obesity due to excess calorie s AMANDEEP BARNES 10/01 [place] [facility] En[facility] [id number] 10/05 [facility] [place] [place] En[facility] [id number] 10/06 [facility] [place] [place] [id number] 10/11 [facility] [place] [place] PT EDUCATION NOC GROUP [id number] 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 LINDA Reyes 10/13 [facility] [place] [facility] [place] WEIGHT MGMT CLASS [id number] Diagnos is: ICD-10- CM E66.09 Other obesity due to excess calorie s AMANDEEP BARNES 10/15 [place] MTMS BY PHARM ADDL 15 MIN [id number] Diagnos is: ICD-10- CM E11.65 Type 2 diabete s mellitu s with hypergl ycemia THOMPSON,CATRACHITA ABMARGO A 10/16 [place] [facility] En[facility] [id number] 10/18 [facility] [place] En[facility] [id number] 10/21 [facility] [place] [place] WEIGHT MGMT CLASS [id number] Diagnos is: ICD-10- CM E66.09 Other obesity due to excess calorie s AMANDEEP BARNES A 10/22 [place] [facility] BEHAVE COUNS 2-10 [id number] Diagnos is: ICD-10- CM E66.09 Other obesity due to excess calorie s MIMI HELLER P 10/29 [place] [facility] Out[facility] Encounter [id number] BLANE GUERRERO B 11/05 [facility] [place] En[facility] [id number] 11/08 [facility] [place] En[facility] [id number] 11/13 [facility] [place] [place] Encounter [id number] 11/19 [facility] [place] [facility] MTMS BY PHARM ADDL 15 MIN [id number] Diagnos is: ICD-10- CM E11.65 Type 2 diabete s mellitu s with hypergl ycemia CATRACHITA THOMPSON A 11/19 [place] [facility] [place] [facility] PT EDUCATION NOC GROUP [id number] 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 LINDA Reyes 11/24 [facility] [place] [facility] BEHAVE COUNS 2-10 [id number] Diagnos is: ICD-10- CM E66.09 Other obesity due to excess calorie s MIMI HELLER P 11/26 [place] [facility] GROUP BEHAVE COUNS 2-10 [id number] Diagnos is: ICD-10- CM E66.09 Other obesity due to excess calorie s PINAMIMI SHAWANDATOAN P 11/26 [place] OFFICE O/P EST LOW 20 MIN [id number] Diagnos is: ICD-10- CM L60.0 Ingrowi JOLANTA Ramirez F 12/01 [place] WEIGHT MGMT CLASS [id number] Diagnos is: ICD-10- CM E66.09 Other obesity due to excess calorie s AMANDEEP BARNES 12/03 [place] Outpatient Encounter [id number] 12/07 [place] WEIGHT MGMT CLASS [id number] Diagnos is: ICD-10- CM Z68.33 Body mass index [BMI] 33.0-33 .9, adult AMANDEEP BARNES 12/10 [place] OFFICE O/P EST HI 40 MIN [id number] [id number] Diagnos is: ICD-10- CM E11.65 Type 2 diabete s mellitu s with hypergl ycemia GALILEA MICHAUD J 12/10 [place] [facility] [place] [facility] Outpatient Encounter [id number] 12/10 [facility] [place] WEIGHT MGMT CLASS [id number] Diagnos is: ICD-10- CM E66.09 Other obesity due to excess calorie s AMANDEEP BARNES 12/17 [place] WEIGHT MGMT CLASS [id number] Diagnos is: ICD-10- CM E66.09 Other obesity due to excess calorie s AMANDEEP BARNES 12/24 [place] GROUP BEHAVE COUNS 2-10 [id number] Diagnos is: ICD-10- CM E66.09 Other obesity due to excess calorie MIMI Daniel P 12/31 [place] WEIGHT MGMT CLASS [id number] Diagnos is: ICD-10- CM E66.09 Other obesity due to excess calorie s AMANDEEP BARNES 01/07 [place] [facility] En[facility] [id number] 01/08 [facility] [place] PT EDUCATION NOC GROUP [id number] 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 LNIDA Reyes 01/12 [facility] [place] [facility] [place] GROUP BEHAVE COUNS 2-10 [id number] Diagnos is: ICD-10- CM E66.09 Other obesity due to excess calorie MIMI Daniel P [place] GROUP BEHAVE COUNS 2-10 [id number] [id number] Diagnos is: ICD-10- CM E66.09 Other obesity due to excess calorie MIMI Daniel P 01/20 [place] MTMS BY PHARM ADDL 15 MIN [id number] Diagnos is: ICD-10- CM E11.65 Type 2 diabete s mellitu s with hypergl ycemia THOMPSON,IZ ABMARGO A 01/21 [place] GROUP BEHAVE COUNS 2-10 [id number] Diagnos is: ICD-10- CM E66.09 Other obesity due to excess calorie MIMI Daniel P 01/27 [place] WEIGHT MGMT CLASS [id number] Diagnos is: ICD-10- CM Z68.32 Body mass index [BMI] 32.0-32 .9, adult AMANDEEP BARNES 02/03 [place] [facility] PT EDUCATION NOC GROUP [id number] 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 LINDA Reyes MAURILIO 02/08 [facility] [place] [facility] [place] OFFICE O/P EST LOW 20 MIN [id number] Diagnos is: ICD-10- CM L60.0 Ingrowi JOLANTA Ramirez F 02/22 [place] [facility] PT EDUCATION NOC GROUP [id number] 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 LINDA Reyes LIE MAURILIO 03/29 [facility] [place] [facility] [place] GROUP BEHAVE COUNS 2-10 [id number] Diagnos is: ICD-10- CM E66.09 Other obesity due to excess calorie s MIMI HELLER SHAWANDATOAN P 03/31 [place] [facility] PT EDUCATION NOC GROUP [id number] 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 LINDA Reyes LIE MAURILIO 04/12 [facility] [place] [facility] [place] WEIGHT MGMT CLASS [id number] Diagnos is: ICD-10- CM E66.09 Other obesity due to excess calorie AMANDEEP Santacruz 04/14 [place] WEIGHT MGMT CLASS [id number] Diagnos is: ICD-10- CM Z68.33 Body mass index [BMI] 33.0-33 .9, adult AMANDEEP BARNES 04/21 [place] MTMS BY PHARM ADDL 15 MIN [id number] Diagnos is: ICD-10- CM E11.65 Type 2 diabete s mellitu s with hypergl ycemia CATRACHITA THOMPSON A 04/21 [place] [facility] [place] [facility] Outpatient Encounter [id number] 04/25 [facility] [place] [facility] Outpatient Encounter [id number] 04/28 [facility] [place] [facility] [place] MGMT CLASS [id number] Diagnos is: ICD-10- CM Z68.33 Body mass index [BMI] 33.0-33 .9, adult AMANDEEP BARNES [place] [facility] [place] [facility] Outpatient Encounter [id number] 04/28 [facility] [place] [facility] [place] GROUP BEHAVE COUNS 2-10 [id number] Diagnos is: ICD-10- CM E66.09 Other obesity due to excess calorie s MIMI HELLER P [place] [facility] [place] [facility] PT EDUCATION NOC GROUP [id number] 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 EST LOW 20 MIN [id number] [id number] Diagnos is: ICD-10- CM L60.0 Ingrowi JOLANTA Ramirez 05/17 [place] [facility] [place] [facility] Outpatient Encounter [id number] 05/25 [facility] [place] En[facility] [id number] 05/25 [facility] [place] [facility] [facility] LD GROUP BEHAVE COUNS 2-10 [id number] Diagnos is: ICD-10- CM E66.09 Other obesity due to excess calorie MIMI Daniel P 05/26 [place] WEIGHT MGMT CLASS [id number] Diagnos is: ICD-10- CM Z68.33 Body mass index [BMI] 33.0-33 .9, adult AMANDEEP BARNES 06/02 [place] [facility] [place] [facility] PT EDUCATION NOC GROUP [id number] 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 Diagnos is: ICD-10- CM E66.09 Other obesity due to excess calorie s AMANDEEP BARNES Duc 06/16 [place]TH BHV IVNTJ GRP EA ADDL [id number] [id number] Diagnos is: ICD-10- CM Z68.32 Body mass index [BMI] 32.0-32 .9, adult AMANDEEP BARNES 06/23 [place] [facility] PT EDUCATION NOC GROUP [id number] 1. 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 IVNTJ GRP EA ADDL [id number] [id number] Diagnos is: ICD-10- CM E66.09 Other obesity due to excess calorie s AMANDEEP BARNES [place] [facility] PT EDUCATION NOC GROUP [id number] 1. 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 LINDA Reyes MAURILIO 08/09 [facility] [place] [facility] [place] BHV IVNTJ GRP EA ADDL [id number] Diagnos is: ICD-10- CM E66.09 Other obesity due to excess calorie s AMANDEEP BARNES 08/11 [place] [facility] Outpatient Encounter [id number]/16 [facility] [place] [facility] MTMS BY PHARM ADDL 15 MIN [id number] [id number] Diagnos is: ICD-10- CM E11.65 Type 2 diabete s mellitu s with hypergl ycemia THOMPSON,IZ ABELA A 08/17 [place] [facility] [place] Outpatient Encounter [id number] 08/17 [facility] [place] [facility] [place] GROUP BEHAVE COUNS 2-10 [id number] Diagnos is: ICD-10- CM E66.09 Other obesity due to excess calorie s MIMI HELLER 08/18 [place] [facility] [place] [facility] PT EDUCATION NOC GROUP [id number] 1. 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 03 Diagnos is: ICD-10- CM E66.09 Other obesity due to excess calorie s AMANDEEP BARNES 08/25 [place] [facility] HEARING AID FITTING/CH ECKING 62373-4.63 1. Diagnos is: ICD-10- CM H90.3 Sensori neural hearing loss, bilater FELICIA Franz 08/30 [facility] [place] [place] BEHAVE COUNS 2-10 00095-6.63 1BY. 48 Diagnos is: ICD-10- CM E66.09 Other obesity due to excess calorie s MIMI HELLER P 09/01 [place] [facility] COMPRE [place]PH EXAM EST PT 1/ 62299-0.63 1. Diagnos is: ICD-10- CM E11.329 2 Type 2 diab with mild nonp rtnop without mclr edema, l eye ANTHONYIMAN H B 09/05 [facility] FIT SPECTACLES MONOFOCAL 83011-3.63 1. Diagnos is: ICD-10- CM Z46.0 Encount er for fit/adj st of spectac les and contact lenses VALLALOIMAN H B 09/05 [facility] PT EDUCATION NOC GROUP [id number] 1. 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 28 Diagnos is: ICD-10- CM E66.811 Obesity , class 1 MIMI HELLER P 09/15 [place] [facility] Outpatient Encounter [id number] 09/16 [facility] Outpatient Encounter [id number] 09/21 [facility] LD GROUP BEHAVE COUNS 2-10 [id number] [id number] Diagnos is: ICD-10- CM E66.811 Obesity , class 1 MIMI HELLER P 09/22 [place] [facility] PT EDUCATION NOC GROUP [id number] 1. 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 Diagnos is: ICD-10- CM Z46.1 Encount er for fitting and adjustm ent of hearing aid FELICIA MOYA 09/28 [facility] [place] [facility] OFFICE O/P EST LOW 20 MIN [id number] 1BY. 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 LINDA Reyes MAURILIO 10/25 [facility] [place] [facility] LD GROUP BEHAVE COUNS 2-10 [id number] Diagnos is: ICD-10- CM E66.811 Obesity , class 1 PINA,MIMI CHAEL P 10[facility]27 [facility]ARM ADDL 15 MIN [id number] Diagnos is: ICD-10- CM E11.65 Type 2 diabete s mellitu s with hypergl ycemia CATRACHITA THOMPSON A 10/27 [place] [facility] Outpatient Encounter [id number] [facility] [place] [facility] DIABETIC CUSTOM MOLDED SHOE [id number] [id number] Diagnos is: ICD-10- CM E11.9 Type 2 diabete s mellitu s without complic ations MAINE BLAND 11/03 [place] GROUP BEHAVE COUNS 2-10 [id number] [id number] Diagnos is: ICD-10- CM E66.811 Obesity , class 1 PINA,MD CHAEL P 11/03 [place] [facility] Outpatient Encounter [id number] [facility] HEARING AID FITTING/CH ECKING [id number] Diagnos is: ICD-10- CM Z46.1 Encount er for fitting and adjustm ent of hearing aid Debbie MALAGON 12/01 [facility] Outpatient Encounter [id number] [facility] [place] Out[facility] Encounter [id number] 1.12/06 [facility] [place] OFFICE O/P EST MOD 30 MIN [id number] [id number] Diagnos is: ICD-10- CM E11.65 Type 2 diabete s mellitu s with hypergl ycemia MARTINEZ,DA VID A 12/06 [place] [facility] Outpatient Encounter [id number] [facility] [place] [facility] [place] GROUP BEHAVE COUNS 2-10 [id number] [id number] Diagnos is: ICD-10- CM E66.811 Obesity , class 1 MIMI HELLER P 12/08 [place] [facility] PT EDUCATION NOC GROUP [id number] 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 LINDA Reyes 12/13 [facility] [place] HLTH BHV IVNTJ GRP EA ADDL [id number] [id number] Diagnos is: ICD-10- CM E66.811 Obesity , class 1 AMANDEEP BARNES 12/15 [place] [facility] Outpatient Encounter [id number] 12/15 [facility] [place] [facility] MTMS BY PHARM ADDL 15 MIN [id number] [id number] Diagnos is: ICD-10- CM E11.65 Type 2 diabete s mellitu s with hypergl ycemia THOMPSONCATRACHITA ORO A 12/15 [place] [facility] PH1 ASSMT&MGMT NQHP 21-30 [id number] Diagnos is: ICD-10- CM Z72.3 Lack of physica l exercis LOLITA Evans 12/26 [facility] [place] [facility] BHV IVNTJ GRP EA ADDL [id number] [id number] Diagnos is: ICD-10- CM E66.811 Obesity , class 1 AMANDEEP BARNES 12/29 [place] [facility] EDU&TRN PT SELF-MGMT NQHP 1 [id number] [id number] Diagnos is: ICD-10- CM Z72.3 Lack of physica l exercis OLLITA Evans 12/30 [facility] [place] [facility] Outpatient Encounter [id number] [id number] 12/30 [facility] [place] [place] [facility] EXERCISE CLASS [id number] Diagnos is: ICD-10- CM Z72.3 Lack of physica l exercis e Gwen HORTON 01/04 [facility] [place] [facility] BHV IVNTJ GRP EA ADDL [id number] [id number] Diagnos is: ICD-10- CM E66.811 Obesity , class 1 AMANDEEP BARNES 01/05 [place] [facility] EXERCISE CLASS [id number] [id number] Diagnos is: ICD-10- CM Z72.3 Lack of physica l exercis e LOLITA JETT 01/06 [facility] EXERCISE CLASS [id number] Diagnos is: ICD-10- CM Z72.3 Lack of physica l exercis e TAYE HORN M 01/09 [facility] EXERCISE CLASS [id number] [id number] Diagnos is: ICD-10- CM Z72.3 Lack of physica l exercis e Gwen HORTON 01/11 [facility] [place] HLTH BHV IVNTJ GRP EA ADDL [id number] [id number] Diagnos is: ICD-10- CM E66.811 Obesity , class 1 BARNESAMANDEEP A 01/12 [place] [facility] EXERCISE CLASS [id number] [id number] Diagnos is: ICD-10- CM Z72.3 Lack of physica l exercis e LOLITA JETT 01/13 [facility] EXERCISE CLASS [id number] Diagnos is: ICD-10- CM Z72.3 Lack of physica l exercis e TAYE HORN M 01/16 [facility] Outpatient Encounter [id number] 01/18 [facility] EXERCISE CLASS [id number] [id number] Diagnos is: ICD-10- CM Z72.3 Lack of physica l exercis e Gwen HORTONIN 01/18 [facility] [place] [facility] LD GROUP BEHAVE COUNS 2-10 [id number] [id number] Diagnos is: ICD-10- CM E66.811 Obesity , class 1 PINAMIMI FARIAS P 01/19 [place] [facility] EXERCISE CLASS 97959-4.63 1. Diagnos is: ICD-10- CM Z72.3 Lack of physica l exercis e TAYE HORN M 01/20 [place] [facility] [place] [facility] (6[facility]GE) Outpatient Encounter [id number] 1GE. 64 01/20 [facility] EXERCISE CLASS [id number] Diagnos is: ICD-10- CM Z72.3 Lack of physica l exercis e TAYE HORN M 01/23 [facility] [place] EXERCISE CLASS [id number] Diagnos is: ICD-10- CM Z72.3 Lack of physica l exercis e Gwen HORTON STEVE 01/25 [facility] [place] [facility] LD GROUP BEHAVE COUNS 2-10 [id number] [id number] Diagnos is: ICD-10- CM E66.811 Obesity , class 1 PINA,MI CHAEL P 01/26 [place] [facility] EXERCISE CLASS [id number] Diagnos is: ICD-10- CM Z72.3 Lack of physica l exercis e TAYE HORN M 01/27 [facility] [place] EXERCISE CLASS [id number] [id number] Diagnos is: ICD-10- CM Z72.3 Lack of physica l exercis e SCOTTHANNAHTAYE Hidalgo 01/30 [facility] [place] [facility] [place] EXERCISE CLASS [id number] [id number] Diagnos is: ICD-10- CM Z72.3 Lack of physica l exercis e Gwen HORTON 02/01 [facility] [place] [place] [facility] GROUP BEHAVE COUNS 2-10 [id number] [id number] Diagnos is: ICD-10- CM E66.811 Obesity , class 1 PINAMIMI DELFINA P 02/02 [facility] [place] [facility] EXERCISE CLASS [id number] [id number] Diagnos is: ICD-10- CM Z72.3 Lack of physica l exercis LOLITA Evans 02/03 [place] [facility] [place] [facility] [place] [facility] EXERCISE CLASS [id number] Diagnos is: ICD-10- CM Z72.3 Lack of physica l exercis LOLITA Evans 02/06 [place] [facility] [place] [facility] [place] [facility] PT EDUCATION NOC GROUP [id number] [id number] 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 IVNTJ GRP EA ADDL [id number] [id number] Diagnos is: ICD-10- CM E66.811 Obesity , class 1 AMANDEEP BARNES 02/09 [place] [facility] EXERCISE CLASS [id number] 1. Diagnos is: ICD-10- CM Z72.3 Lack of physica l exercis e TAYE HORN M 02/10 [facility] [place] EXERCISE CLASS [id number] [id number] Diagnos is: ICD-10- CM Z72.3 Lack of physica l exercis e TAYE HORN M 02/13 [facility] [place] EXERCISE CLASS [id number] [id number] Diagnos is: ICD-10- CM Z72.3 Lack of physica l exercis e Gwen HORTON STEVE 02/15 [facility] [place] [place] [facility] IVNTJ GRP EA ADDL [id number] [id number] Diagnos is: ICD-10- CM E66.811 Obesity , class 1 AMANDEEP BARNES 02/16 [place] [facility] EXERCISE CLASS [id number] [id number] Diagnos is: ICD-10- CM Z72.3 Lack of physica l exercis e TAYE HORN M 02/17 [facility] [place] PT EDUCATION NOC GROUP [id number] [id number] 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 LINDA Reyes 02/21 [facility] [place] Outpatient Encounter [id number] 02/21 [facility] [place] [place] [facility] EXERCISE CLASS [id number] [id number] Diagnos is: ICD-10- CM Z72.3 Lack of physica l exercis Gwen Blankenship STEVE 02/22 [facility] [place] [facility] LD GROUP BEHAVE COUNS 2-10 [id number] [id number] Diagnos is: ICD-10- CM E66.811 Obesity , class 1 PINAMIMI CHAEL P 02/23 [place] [facility] EXERCISE CLASS [id number] [id number] Diagnos is: ICD-10- CM Z72.3 Lack of physica l exercis e TAYE HORN 02/24 [facility] [place] [place] [facility] [place] [facility] OFF/OP EST MAY X REQ PHY/QHP [id number] [id number] Diagnos is: ICD-10- CM Z72.3 Lack of physica l exercis e TAYE HORN 02/27 [facility] [place] [facility] [place] [facility] EXERCISE CLASS [id number] Diagnos is: ICD-10- CM Z72.3 Lack of physica l exercis e Gwen HORTON STEVE 03/01 [facility] [place] [place] [facility] LD GROUP BEHAVE COUNS 2-10 [id number] Diagnos is: ICD-10- CM E66.811 Obesity , class 1 PINAMIMI CHAEL P 03/02 [place] [facility] [place] [facility] EXERCISE CLASS [id number] Diagnos is: ICD-10- CM Z72.3 Lack of physica l exercis e TAYE HORN M 03/03 [place] [facility] [place] [facility] [place] [facility] EXERCISE CLASS [id number] [id number] Diagnos is: ICD-10- CM Z72.3 Lack of physica l Gwen Andre 03/06 [place] [facility] [place] [facility] [place] [facility] PT EDUCATION NOC GROUP [id number] [id number] 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 Social History Type Response Date Comment Sourc e Tobacco smoking status [facility] VA-TOBACCO NEVER USED 12/10/2023 [place] [facility] [place] [facility] History of tobacco use [place]-TOBACCO NEVER USED 05/27/2022 [facility] D History of tobacco use [place]-TO[place]ACCO NEVER USED 01/11/2020 [facility] D History of tobacco use [place]-TO[place]ACCO NEVER USED 01/25/2019 [facility] D History of tobacco use LIFETIME NON-TOBACCO USER 02/04/2018 [place] History of tobacco use LIFETIME NON-TOBACCO USER 02/04/2017 [place] History of tobacco use LIFETIME NON-TOBACCO USER 07/12/2015 [place] Plan of Care List of future care activities from [facility] facilities. Additional future care activities may be listed in the Assessment and Plan section. Date/Time Care Activity Care Activity Detail Facili ty 03/09/2025 AMBULATORY - NONE AMBULATORY - NONE [facility] Advance Directives List of completed, amended, or rescinded Advance Directives on record at [facility] facilities. An actual copy of the Directive is not included. Date Advance Directive Provider Source 08/07/2015 ADVANCE DIRECTIVE BEN BERNABE
--- OUTSIDE RECORDS SUMMARY | 2025-03-09 15:44 | XMS_ITS | Encounter Summary ---
Author Name [facility] [place] [facility] Address [address] [place] [address] Care Team Providers Care Toppiece Cutter Name Role Phone HUNTER MARTINEZ Primary Care [...] Carmona's Name Patient's Relationship to Policy Carmona [facility] MEDICAID [facility] Nov 16, 2014 01 [id number] JARRETT BARRAGAN PATIENT MEDICARE (WNR) MEDICARE (M) PART A Jul 17, 2018 PART A [id number] LAUREL,JARRETT [place] PATIENT MEDICARE (WNR) MEDICARE (M) PART B Jul 17, 2018 PART B [id number] LAUREL,JARRETT MEJIASONY PATIENT MEDICARE (WNR) MEDICARE (M) PART A Jul 17, 2018 PART A [id number] JARRETT BARRAGAN PATIENT MEDICARE (WNR) MEDICARE (M) PART B Jul 17, 2018 PART B [id number] JARRETT BARRAGAN PATIENT Selected Encounter This section includes the information on record at NH for the Encounter. Date/Time Encounter Type Encounter Description Reason Provider Source Feb 13, 2025 07:30 AM EXERCISE CLASS HEALTH/[facility] ICD-10-CM Z72.3 Lack of physical exercise ALTAGRACIA HORN [place] Encounter Template Text not used by [place] Assessments - Encounter Diagnoses This section includes the primary and secondary diagnoses documented for the Encounter. Date/Time Primary/Secondary Diagnosis Diagnosis Name Provider Source Feb 13, 2025 10:11 AM PRIMARY Lack of physical exercise DESTINEY HORTON [facility] [place] [facility] Plan of Treatment: Future Appointments (+ 6 months) and Future Tests (+/- 45 days) The Plan of Treatment section includes future care activities for the patient [facility] This section includes future appointments and future orders which are active, pending or scheduled. Future Appointments This section includes appointments that were scheduled to occur 6 months from the date of the Encounter, up to a maximum of 20 appointments. The data comes from all [place] treatment facilities. Appointment Date/Time Appointment Type Appointme nt Facility Name Feb 16, 2025 11:00 AM AM[place]ATORY - NONE [place] Feb 21, 2025 12:00 PM AMBULATORY - NONE [facility] [place] [facility] Feb 23, 2025 11:00 AM AMBULATORY - NONE [place] Mar 02, 2025 11:00 AM AMBULATORY - NONE [place] Mar 07, 2025 12:00 PM AMBULATORY - NONE [facility] [place] [facility] Mar 09, 2025 11:00 AM AMBULATORY - NONE [place] Mar 09, 2025 01:30 PM AMBULATORY - MEDICINE [facility] [place] [place] [facility] April 04, 2025 02:00 PM [facility]ATORY - [facility] Jun 13, 2025 03:00 PM AMBULATORY - MEDICINE [facility] Jun 29, 2025 03:00 PM AMBULATORY - [facility]ICINE [facility] Active, Pending, and Scheduled Orders This section includes a listing of several types of active, pending, and scheduled orders, including clinic medications orders, diagnostic test orders, procedure orders and consult orders; where the start date of the order is 45 days before the date of the Encounter or 45 days after the date of theEncounter. The data comes from all [place] treatment facilities. Test Date/Time Test Type Test Details Facility Name Feb 22, 2025 09:49 AM Consult Order COMM[facility]ITY CARE-PULMONARY Cons Functional Director's Bruce WALES Social History: Smoking Status (Most current) and Tobacco Use (All prior to encounter date) This section includes the most current, and the historical, smoking and tobacco- related health factors from the NH facility where the Encounter took place. Current Smoking Status This section includes the most current smoking, or tobacco-related health factor, from the NH facility where the Encounter took place. Date/Time Current Smoking Status Comment Facil ity Dec 10, 2023 01:11 PM VA-TOBACCO NEVER USED [facility] Advance Directives: All historical and current Section Date Range: From patient's date of to the date document was created. This section includes ALL of a patient's completed or amended [place] Advance and Rescinded Directives. The entries below indicate that a directive exists for the patient, but an actual copy is not included with this document. The data comes from all [place] facilities. Date Advance Directives Provider Source Aug 07, 2015 ADVANCE DIRECTIVE BEN BERNABE Encounter Notes: All associated encounter notes This section contains the clinical notes associated to the Encounter. Date/Time Encounter Note(s) Provider Source Feb 13, 2025 10:04 AM PHYSICAL MEDICINE REHAB NOTE: LOCAL TITLE: GEROFIT-SUPERVISED EXERCISE NOTE STANDARD TITLE: PHYSICAL MEDICINE REHAB NOTE DATE OF NOTE: FEB 13, 2025@10:04 ENTRY DATE: FEB 13, 2025@10:04:43 AUTHOR: JACQUI HORTON COSIGNER: URGENCY: STATUS: COMPLETED participated in the [facility] exercise program today. Activities were focused on progression of their individual exercise prescription (cardiorespiratory fitness training, strength training, etc.) and group based exercise sessions to include, but not limited to: flexibility training, balance training, functional circuit training, Juanpablo Chi for arthritis, and other functional strength and neuromotor exercises. Exercise participation was supervised by [facility] staff and any questions/concerns were addressed with the patient. Modifications were made to programming as appropriate to suit Veterans individual needs, preferences, and whole health concerns. /damaris/ MILLY BALTAZAR LICENSE MORTGAGE LOAN PROCESSING CLERK Signed: 02/13/2025 10:21 JACQUI HORTON [facility]
--- OUTSIDE RECORDS SUMMARY | 2025-03-09 15:44 | XMS_ITS | Encounter Summary ---
Author Name [facility] [place] Organization [facility] [place] Address [address] [place] [address] Care Team Providers Care Sales Solutions Associate Name Role Phone HUNTER MARTINEZ Primary Care [...] [place] H Nov 16, 2014 01 [id number] JARRETT BARRAGAN PATIENT MEDICARE (WNR) MEDICARE (M) PART B Jul 17, 2018 PART B [id number] LAUREL,JARRETT MEJIASONY PATIENT MEDICARE (WNR) MEDICARE (M) PART A Jul 17, 2018 PART A [id number] LAUREL,JARRETT MEJIASONY PATIENT MEDICARE (WNR) MEDICARE (M) PART A Jul 17, 2018 PART A [id number] LAUREL,JARRETT MEJIASONY PATIENT MEDICARE (WNR) MEDICARE (M) PART B Jul 17, 2018 PART B [id number] LAUREL,JARRETT [place] PATIENT Selected Encounter This section includes the information on record at [place] for the Encounter. Date/Time Encounter Type Encounter Description Reason Provider Source Sep 28, 2024 04:00 PM HEARING SERVICE AUDIOLOGY ICD-10-CM Z46.1 Encounter for fitting and adjustment of hearing aid GEOVANY MOYA Encounter Template Text not used by [place] Assessments - Encounter Diagnoses This section includes the primary and secondary diagnoses documented for the Encounter. Date/Time Primary/Secondary Diagnosis Diagnosis Name Provider Source Sep 28, 2024 03:58 PM PRIMARY Encounter for fitting and adjustment of hearing aid BART MOYA [place] [facility] [place] [facility] Sep 28, 2024 03:58 PM SECONDARY Sensorineural hearing loss, bilateral BART MOYA [place] [facility] [place] [facility] Plan of Treatment: Future Appointments (+ 6 months) and Future Tests (+/- 45 days) The Plan of Treatment section includes future care activities for the patient from all [place] treatmentfacilities. This section includes future appointments and future orders which are active, pending or scheduled. Future Appointments This section includes appointments that were scheduled to occur 6 months from the date of the Encounter, up to a maximum of 20 appointments. The data comes from all [place] treatment facilities. Appointment Date/Time Appointment Type Appointme nt Facility Name Oct 04, 2024 03:00 PM AMBULATORY - MEDICINE [facility] Oct 06, 2024 11:00 AM AMBULATORY - NONE [place] Oct 11, 2024 12:00 PM AMBULATORY - NONE [facility] [place] [facility] Oct 20, 2024 11:00 AM AMBULATORY - NONE [place] Oct 25, 2024 12:00 PM AMBULATORY - NONE [facility] [place] [facility] Oct 27, 2024 11:00 AM AMBULATORY - NONE [place] Oct 27, 2024 02:30 PM AMBULATORY - MEDICINE [facility] [place] [facility] Nov 03, 2024 09:00 AM AMBULATORY - MEDICINE [facility] [place] [facility] Nov 03, 2024 11:00 AM AMBULATORY - NONE [place] Dec 01, 2024 08:30 AM AMBULATORY - REHAB MEDICIN E [facility] [place] [facility] Dec 06, 2024 01:30 PM AM[facility]ATORY - MEDICINE [facility] Dec 08, 2024 11:00 AM AM[facility]ULATORY - NONE [place] Dec 13, 2024 12:00 [facility] Dec 15, 2024 11:00 AM AM[facility]ATORY - NONE [place] Dec 15, 2024 02:30 PM AMBULATORY - MEDICINE [facility] Dec 29, 2024 11:00 AM AMBULATORY - NONE [place] Jan 05, 2025 11:00 AM AMBULATORY - NONE [place] Jan 12, 2025 11:00 AM AMBULATORY - NONE [place] Jan 19, 2025 11:00 AM AMBULATORY - NONE [place] Jan 20, 2025 01:00 PM AMBULATORY - MEDICINE [facility] Active, Pending, and Scheduled Orders This section includes a listing of several types of active, pending, and scheduled orders, including clinic medications orders, diagnostic test orders, procedure orders and consult orders; where the start date of the order is 45 days before the date of the Encounter or 45 days after the date of theEncounter. The data comes from all [place] treatment facilities. Test Date/Time Test Type Test Details Facility Name Oct 27, 2024 12:00 AM Laboratory - Chemistry Order MICROALBUMIN CREATININE RATIO PANEL URINE (RANDOM) SP [facility] Lab Results: +/- 30 days of the encounter This section includes the Chemistry and Hematology Lab Results on record with [place] for the patient. Radiology Reports and Pathology Reports are provided separately, in subsequent sections. Lab Results This section contains the Chemistry/Hematology Results that were resulted 30 days before or 30 daysafter the date of the Encounter. Date/Time Source Result Type Result - Unit Interpretation Reference Range Specimen Type Comment Oct 27, 2024 02:50 PM [facility] HEMOGLOBIN A1C PANEL BLOOD Specimen Type: [...] Oct 27, 2024 02:44 PM Reporting Lab: [facility] [address] [facility] [address] Performing Lab: [address] [address] HEMOGLOBIN A1C 6.0 H 4.0-5.6 Oct 27, 2024 02:50 PM [facility] CBC BLOOD Specimen Type: BLOOD No comment entered. Ordering Provider: ADIEL THOMPSON Report Released Date/Time: Oct 27, 2024 02:44 PM Reporting Lab: [facility] [address] [facility] [address] Performing Lab: [address] [address] WBC 6.22 10*3/uL 4.50-11.00 RBC 5.33 10*6/uL 4.23-5.66 HGB 16.2 g/dL 12.8-17 HCT 48.3 39.2-50.4 MCV 90.6 fL 82-99 MCHC 33.5 g/dL 30.8-35.1 PLT 252 10*3/uL 140-360 RDW-CV 13.6 12.0-16.0 MCH 30.4 pg 26.2-32.6 Oct 27, 2024 02:50 PM [facility] BASIC METABOLIC PANEL (non-fasting) SERUM Spe cimen Type: SERUM No comment entered. Ordering Provider: ADIEL THOMPSON Report Released Date/Time: Oct 27, 2024 02:44 PM Reporting Lab: [address] [id number] Performing Lab: [address] [address] UREA NITROGEN 19 mg/dL 7-25 GLUCOSE 92 [...] and tobacco- related health factors from the [place] facility where the Encounter took place. Current Smoking Status This section includes the most current smoking, or tobacco-related health factor, from the [place] facility where the Encounter took place. Date/Time Current Smoking Status Comment Otf hamm Dec 10, 2023 01:11 PM [place]-TOBACCO NEVER USED [place] [facility] [place] [facility] Advance Directives: All historical and current Section Date Range: From patient's date of to the date document was created. This section includes ALL of a patient's completed or amended [place] Advance and Rescinded Directives. The entries below indicate that a directive exists for the patient, but an actual copy is not included with this document. The data comes from all [place] facilities. Date Advance Directives Provider Source Aug 07, 2015 ADVANCE DIRECTIVE BEN BERNABE [facility] Encounter Notes: All associated encounter notes This section contains the clinical notes associated to the Encounter. Date/Time Encounter Note(s) Provider Source Sep 28, 2024 07:55 AM AUDIOLOGY E & M NOTE: LOCAL TITLE: AUDIOLOGY CLINIC STANDARD TITLE: AUDIOLOGY E & M NOTE DATE OF NOTE: SEP 28, 2024@07:55 ENTRY DATE: SEP 28, 2024@07:55:20 AUTHOR: GEOVANY MOYA COSIGNER: URGENCY: STATUS: COMPLETED AUDIOLOGY CLINIC Has ADDENDA Dx CODE: Z46.1- Encounter for Fitting/Programming Hearing Aid(s); H90.3- Sensorineural Hearing Loss, Bilateral APPOINTMENT TYPE: Hearing Aid Fitting SUBJECTIVE (S): The patient was seen for hearing aid fitting and issuance. He had previously been evaluated and found to exhibit significant hearing loss for which amplification was recommended. He is a previous user of [employer] Muse P90-312 RICs. A new left earmold was ordered at previous appointment, however forgot to bring in these devices. The new earmold was placed in his new hearing aid box and he was advised to bring it to a future appointment to be attached to his old left hearing aid. How does the patient best learn? Verbal instruction, demonstration Does the patient have any cultural and orthodox beliefs, emotional barriers, physical or cognitive limitations, and communication barriers which may impact his ability to learn? No Desire and motivation to learn? Good OBJECTIVE (O): Physical fit of hearing aids was good. Patient verified comfort. Verification of an appropriate acoustic response was obtained using Real Ear measurements (speech mapping) and NAL-NL2 targets. The patient reported good subjective benefit as well. Feedback emergency department manager was run. Hearing aids were found to be meeting targets adequately and MPO was not exceeding estimated UCL. Settings stored in NAMITA. ASSESSMENT (A): The following devices were issued: Make: Oticon Model: Intent 1 miniRITE-R Right Serial Number: [id number] Left Serial Number: [id number] Battery size: RECHARGEABLE Warranty ends: 10/06/27 Trial Period ends: 03/05/25 Wax guards: prowax Earmold: acrylic canal lock Route Jumper: size 3 85 gain Program(s): Automatic Button(s): Short press= right raise, left lower Long press= on/off Fitting Formula: NAL-NL2 Counseling was completed throughout todays appointment using a standardized curriculum that includes but is not limited to; realistic expectations with amplification in adverse listening environments, acclimatization to own voice and environmental sounds (following real-ear measurements), the importance of consistent use of amplification, proper insertion/removal, care and maintenance (including wax guards/domes if applicable), signal and alerts of devices, and charging/batteries. The was provided the opportunity to practice in office and reports confidence/understanding in all items reviewed. Time Spent= 20 minutes The patient was informed of and signed/agreed to [place] policy on hearing aid issuance: Yes Users are responsible for the maintenance and security of their devices. Determination of need to replace a hearing aid is made by the [place] ben day artist. Hearing aids will not be replaced in cases of neglect, abuse, or excessive loss. Items issued are for personal use only. Prognosis for successful hearing aid use is good. PLAN (P): 1. Follow-up for programming/adjustments as needed. 2. The International Outcome Inventory-Hearing Aids (IOI-GALINDO) will be mailed to the in four weeks. He was asked to complete and mail back to clinic after completion. Patient Education Education provided on the following topics: Hearing aid use, care, maintenance Education provided to: P Response to Education: VU, RD, PI Cloud Patient P Family F Significant Other SO Verbalizes Understanding VU Returns Demonstration RD Performs Independently PI Lacks Comprehension LC Refused Education RE Not Applicable NA /damaris/ GEOVANY MOYA STAFF BANJO REPAIRER Signed: 09/28/2024 15:58 11/17/2024 ADDENDUM STATUS: COMPLETED returned IOI-GALINDO Outcome Measure to the clinic via mail with an overall score of 33 Based on this score: i. No follow-up call is indicated _XX_ ii. Follow-up call is indicated and fitting clinician will be notified __ /damaris/ CARYL BARR Audiology Health Brushing Operator Signed: 11/17/2024 13:42 GEOVANY MOYA [facility] [place] [facility]
--- OUTSIDE RECORDS SUMMARY | 2025-03-09 15:44 | XMS_ITS | Encounter Summary ---
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 Name Role Phone HUNTER MARTINEZ Primary Care [...] [place] H Nov 16, 2014 01 [id number] LAUREL,JARRETT MEJIASONY PATIENT MEDICARE (WNR) MEDICARE (M) PART B Jul 17, 2018 PART B [id number] LAUREL,AN WIL PATIENT MEDICARE (WNR) MEDICARE (M) PART A Jul 17, 2018 PART A [id number] LAUREL,AN WIL PATIENT MEDICARE (WNR) MEDICARE (M) PART A Jul 17, 2018 PART A [id number] [id number] LAUREL,AN WIL PATIENT MEDICARE (WNR) MEDICARE (M) PART B Jul 17, 2018 PART B [id number] LAUREL,JARRETT DE [place] PATIENT Selected Encounter This section includes the information on record at [place] for the Encounter. Date/Time Encounter Type Encounter Description Reason Provider Source Apr 21, 2024 01:00 PM MTMS BY PHARM RAFA 15 MIN CLINICAL PHARMACY ICD-10-CM E11.65 Type 2 diabetes mellitus with hyperglycemia KRISTEL THOMPSON [facility] Encounter Template Text not used by [place] Assessments - Encounter Diagnoses This section includes the primary and secondary diagnoses documented for the Encounter. Date/Time Primary/Secondary Diagnosis Diagnosis Name Provider Source Apr 25, 2024 08:13 AM PRIMARY Type 2 diabetes mellitus with hyperglycemia RITO THOMPSON [place] Plan of Treatment: Future Appointments (+ 6 months) and Future Tests (+/- 45 days) The Plan of Treatment section includes future care activities for the patient from all [place] [facility]. This section includes future appointments and future orders which are active, pending or scheduled. Future Appointments This section includes appointments that were scheduled to occur 6 months from the date of the Encounter, up to a maximum of 20 appointments. The data comes from all [place] treatment facilities. Appointment Date/Time Appointment Type Appointme nt Facility Name Apr 28, 2024 11:00 AM AMBULATORY - NONE [place] Apr 28, 2024 01:30 PM AMBULATORY - [place]ICINE [place] [facility] [facility] May 05, 2024 11:00 AM AMBULATORY - NONE [place] May 10, 2024 12:00 PM AMBULATORY - NONE [place] [facility] [place] [facility] May 12, 2024 11:00 AM AMBULATORY - NONE [place] May 17, 2024 03:00 PM AMBULATORY - MEDICINE [facility] May 26, 2024 11:00 AM AMBULATORY - NONE [place] Jun 02, 2024 11:00 AM AMBULATORY - NONE [place] Jun 07, 2024 12:00 PM AMBULATORY - NONE [place] [facility] [place] [facility] Jun 09, 2024 11:00 AM AMBULATORY - NONE [place] Jun 16, 2024 10:00 AM AMBULATORY - MEDICINE [place] [facility] [facility] Jun 16, 2024 11:00 AM AMBULATORY - NONE [place] Jun 23, 2024 11:00 AM AMBULATORY - NONE [place] Jun 28, 2024 12:00 PM AMBULATORY - NONE [facility] [place] [facility] Jul 05, 2024 01:00 PM AM[facility]ULATORY - MEDICINE [facility] Jul 12, 2024 12:00 PM AMBULATORY - NONE [facility] [place] [facility] Jul 14, 2024 11:00 AM AMBULATORY - NONE [place] Jul 21, 2024 11:00 AM AMBULATORY - NONE [place] Jul 26, 2024 12:00 PM AMBULATORY - NONE [facility] [place] [facility] Jul 28, 2024 01:00 PM [facility] Lab Results: +/- 30 days [...] Type Comment Apr 21, 2024 01:35 PM [facility] MICROALBUMIN CREATININE RATIO PANEL URINE Spe cimen Type: URINE No comment entered. Ordering Provider: ADIEL THOMPSON Report Released Date/Time: Apr 21, 2024 01:11 PM Reporting Lab: [facility] [address] [facility] [address] Performing Lab: [facility] [address] [facility] [address] MICROALBUMIN/CREATININE RATIO canc mg/g 0-29.9 MICROALBUMIN,QUANTITATIVE < 0.5 mg/dL RR UNAVAIL CREATININE URINE 13.76 mg/dL Apr 21, 2024 01:35 PM [facility] HEMOGLOBIN A1C PANEL BLOOD Specimen Type: BLO OD Comment: Values obtained from A1C measurements can vary. For atypical A1C assays, a reported value of 7.0 could actually be between 6.72 and 7.28 if measured by a reference method. A reported value of 9.0 could actually be between 8.73 and 9.27. Ref: http://www.ngsp.org/CAPdata.asp Ordering Provider: ADIEL THOMPSON Report Released Date/Time: Apr 21, 2024 01:11 PM Reporting Lab: [address] [address] Performing Lab: [facility] [address] [facility] [address] HEMOGLOBIN A1C 6.2 H 4.0-5.6 Apr 21, 2024 01:35 PM [facility] BASIC METABOLIC PANEL (non-fasting) SERUM Spe cimen Type: SERUM No comment entered. Ordering Provider: ADIEL THOMPSON Report Released Date/Time: Apr 21, 2024 01:11 PM Reporting Lab: [facility] [address] [facility] [address] Performing Lab: [facility] [address] [facility] [address] UREA NITROGEN 21 mg/dL 7-25 GLUCOSE 95 [...] Otf hamm May 27, 2022 09:30 AM [place]-TOBACCO NEVER USED [place] Tobacco Use History This section includes a history of the smoking, or tobacco-related health factors, that were collected on or before the date of the Encounter. The data comes from the [place] facility where the Encounter took place. Date/Time Smoking Status/Tobacco Use Comment F acility Jan 11, 2020 10:38 AM [place]-TOBACCO NEVER USED [place] Jan 25, 2019 01:47 PM [place]-TO[place]ACCO NEVER USED [place] Feb 04, 2018 01:53 PM LIFETIME NON-TOBACCO USER [place] Feb 04, 2017 10:10 AM LIFETIME NON-TOBACCO USER [place] Jul 12, 2015 08:31 AM LIFETIME NON-TOBACCO USER [place] Advance Directives: All historical and current Section [...] Aug 07, 2015 ADVANCE DIRECTIVE BEN BERNABE [facility] Encounter Notes: All associated encounter notes This section contains the clinical notes associated to the Encounter. Date/Time Encounter Note(s) Provider Source Apr 21, 2024 01:08 PM PHARMACY OUTPATIEN T NOTE: LOCAL TITLE: PHARMACY CLINIC NOTE STANDARD TITLE: PHARMACY OUTPATIENT NOTE DATE OF NOTE: APR 21, 2024@13:08 ENTRY DATE: APR 21, 2024@13:08:06 AUTHOR: ADIEL THOMPSON COSIGNER: URGENCY: STATUS: COMPLETED Patient Name: JUSTIN BARRAGAN was seen via f for follow-up for diabetes management treatment. : Jul Age: 68 Sex: MALE Race: WHITE Subjective: Pt comes to the appt stating he [...] non-VA MD: Dr. Juan Jose Martinez MD [facility] Endocrinology on 10/21/24 A1C: 6.4% -repeated that day. Pt was trained on dexcom at the last visit w/ CPP> Per prev: Sees Dr. Reid from [facility] in October,. Pt states his BG levels are dropping but he is not loosing as much weight as he desires. Per prev: Pt presents to the visit w/ outside non-VA rx for semaglutide. [facility]. This rfp writer checked w/ community care pharmacist and pt does not have a current/active CC consult to endocrine. Informed the pt this rx cannot be filled at the va and explained the rationale. Pt wishes to proceed to obtain GLP-1 agent from the [facility] but does commment that he did not have to pay copay for this rx in [facility]. Per prev: Pt presents for carine upload [...] HEMOGLOBIN A1C TREND Collection DT Spec HGBA1c 12/10/2023 13:50 BLOOD 6.1 H 09/18/2023 14:30 BLOOD 6.0 H 02/26/2023 09:14 BLOOD 6.0 H 11/28/2022 08:23 BLOOD 7.4 H 08/22/2022 08:14 BLOOD 8.5 H CBC TREND Collection DT Spec WBC RBC HGB HCT MCV MCH PLT 12/10/2023 13:50 BLOOD 6.82 5.19 15.8 47.5 91.5 30.4 254 01/13/2020 07:11 BLOOD 5.39 4.24 13.4 40.2 94.8 31.6 205 01/27/2018 09:02 BLOOD 4.80 4.56 14.3 41.8 91.7 31.4 295 02/02/2017 09:24 BLOOD 6.57 5.03 15.5 46.2 91.8 30.8 270 01/08/2016 08:28 BLOOD 4.88 5.22 15.3 46.0 88.1 29.3 272 CHEM 7 TREND LAB CUMULATIVE SELECTED Collection DT Spec GLUCOSE BUN CREATIN Sodium K+/Pot CL CO2 12/10/2023 13:50 SERUM 88 22 0.95 139 4.6 104 25 09/18/2023 14:30 SERUM 122 H 24 0.93 137 4.0 105 22 02/26/2023 09:14 SERUM 123 H 22 0.84 138 4.6 105 23 11/28/2022 08:22 SERUM 85 18 0.89 3.9 08/22/2022 08:14 SERUM 212 H 21 1.03 138 4.6 105 23 LAB CUMULATIVE SELECTED 2 No selection items chosen for this component. CHEM 7 Results Collection DT Spec Sodium K+/Pot CL CO2 GLUCOSE BUN 12/10/2023 13:50 SERUM 139 4.6 104 25 [...] Specimen Test Name Result Units Ref Range 12/10/2023 13:50 SERUM TSH 0.74 uIU/mL 0.35 - 5.00 01/13/2020 07:11 SERUM THYROID T4 FREE(F 1.41 ng/dL 0.6 - 1.6 VITAMIN D 25-OH Collection DT Specimen Test Name Result Units Ref Range 12/10/2023 13:50 SERUM VITAMIN D (25-OH) 39 ng/mL 20 - 50 ---- LIPID PANEL ---- SERUM Darwin Nov 28 Reference 2023 2022 13:50 08:22 Units Ranges CHOL 151 130 mg/dL <7 - 199 TRIG 187 H 83 mg/dL 0 - 150 HDL 53 53 mg/dL 40 - 60 LDL 61 60 mg/dL 0 - 129 CHO/HDL 2.8 2.5 Comments: kameron garcia SrCr (last 6 weeks): CREATININE-EGFR - NONE FOUND CRCL IBW: CrCl(est): 87.1 mL/min (Creat:0.95 12/10/23) CRCL ACT: 100 mL/min CRCL ADJ: 87.1 mL/min (12/10/23) ---- GENERAL CHEMISTRY ---- SERUM Dec 10 Sep 18 Feb 26 Nov 28 Reference 2023 2022 2022 2022 13:50 14:30 09:14 08:22 Units Ranges AST 38 H 47 H U/L 5 - 34 ALT 37 34 U/L <6 - 55 Vitals: Weight (BMI): 238 lb [107.95 kg] (01/21/2024 11:00) Height: 71 in [180.3 cm] (06/03/2023 15:46) [...] ONE TABLET BY MOUTH ONCE DAILY ACTIVE FOR DIABETES FLUTICAS 250/SALMETEROL 50 INHL DISK 60 INHALE 1 PUFF BY ACTIVE MOUTH TWICE DAILY GLUCOSE SENSOR DEXCOM G7 USE 1 SENSOR DIRECTED EVERY 10 ACTIVE DAYS INSULIN,GLARGINE-YFGN 100UNIT/ML PEN 3ML INJECT 26 UNITS ACTIVE SUBCUTANEOUSLY ONCE DAILY LANCET,SOFTCLIX USE 1 LANCET TOPICALLY TWICE DAILY [...] DAILY ACTIVE FOR USE WITH PEN DEVICE NIACIN (SLO-NIACIN) 500MG TAB,SA TAKE THREE TABLETS BY ACTIVE MOUTH ONCE DAILY PER DR. PREIBESZ SODIUM FLUORIDE 1.1% (FL 0.5%) DENT GEL APPLY PEA SIZE ACTIVE AMOUNT TO TEETH AT BEDTIME FOR TOOTH DECAY PREVENTION Non-VA ASCORBIC ACID [...] 40MG BY MOUTH AT BEDTIME ACTIVE MEDICATION RECONCILIATION:done BLOOD GLUCOSE MONITORING INFORMATION OBTAINED FROM CARINE [...] range 102-167 mg/dl) ======= 10/17/22: Taken from [facility]: BLOOD GLUCOSE MONITORING 15 DAY AVERAGE = [...] n=6; range: 91-163mg/dl Bedtime: 99 mg/dl ;n=1 NUTRITION: Diet Patterns: patient eats on avg.3 x/day: B: yogurt or cottage cheese and bannana L: mac and cheese w/ green beans and potatoes D: 3:30-4:30PM: pt cooks ; tacos, once in a while he takes out food i..e [employer] Snacks: cut down ; popcorn 4-5 carbs [...] 238 lbs weight 04/20/24 => 238 lbs goal weight: 217 lbs [...] from day to day. f/up in July. 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 Clinic's Next Scheduled Follow-up: 07/28/24 No barriers; Patient understands and agrees to current treatment plan. If he has any questions, concerns, or changes in current health status he will call or come in to the [facility]. FUTURE APPOINTMENTS: 02/23/2024 15:00 CWM/SO/PODIATRY/ORA 05/17/2024 15:00 CWM/SO/PODIATRY/ORA 06/06/2024 13:30 CWM/SO/PACT 2 09/05/2024 08:30 CWM/NO/OPTOMETRY/MERHAR DM type is :T2D Length of Visit: 30 minutes PBM PharmD Pharmacotherapy Rem V12: PHARMACIST INTERVENTIONS: TYPE 2 DIABETES MELLITUS Medication Intervention(s) Adjust dose or frequency of current medication due to hypoglycemia Plan: reduce dose of insulin glargine Medication monitoring, no dosage change required, continue to monitor and assess /damaris/ ADIEL THOMPSON CLINICAL CULINARY DIRECTOR Signed: 04/25/2024 08:21 Receipt Acknowledged By: 05/17/2024 10:37 /es/ DARCY MICHAUD MD PHYSICIAN ADIEL THOMPSONFIELD
--- OUTSIDE RECORDS SUMMARY | 2025-03-09 15:44 | XMS_ITS | Encounter Summary ---
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 Name Role Phone HUNTER MARTINEZ Primary Care [...] Carmona's Name Patient's Relationship to Policy Carmona [facility] MEDICAID [facility] Nov 16, 2014 01 [id number] JARRETT BARRAGAN PATIENT MEDICARE (WNR) MEDICARE (M) PART A Jul 17, 2018 PART A [id number] LAUREL,JARRETT [place] PATIENT MEDICARE (WNR) MEDICARE (M) PART B Jul 17, 2018 PART B [id number] LAUREL,JARRETT MEJIASONY PATIENT MEDICARE (WNR) MEDICARE (M) PART A Jul 17, 2018 PART A [id number] JARRETT BARRAGAN PATIENT MEDICARE (WNR) MEDICARE (M) PART B Jul 17, 2018 PART B [id number] JARRETT BARRAGAN PATIENT Selected Encounter This section includes the information on record at [place] for the Encounter. Date/Time Encounter Type Encounter Description Reason Provider Source Mar 08, 2025 07:30 AM EXERCISE CLASS HEALTH/WELLBEING SRVS ICD-10-CM Z72.3 Lack of physical exercise DESTINEY HORTON [facility] Encounter Template Text not used by [place] Assessments - Encounter Diagnoses This section includes the primary and secondary diagnoses documented for the Encounter. Date/Time Primary/Secondary Diagnosis Diagnosis Name Provider Source Mar 08, 2025 10:49 AM PRIMARY Lack of physical exercise [facility] Plan of Treatment: Future Appointments (+ 6 months) and Future Tests (+/- 45 days) The Plan of Treatment section includes future care activities for the patient [facility] [place] [facility] This section includes future appointments and future [...] 09, 2025 11:00 AM AMBULATORY - NONE [facility] Mar 09, 2025 01:30 PM AMBULATORY - MEDICINE [facility] [place] [facility] April 04, 2025 02:00 PM AMBULATORY - MEDICINE [facility] Jun 13, 2025 03:00 PM AMBULATORY - MEDICINE [facility] Jun 29, 2025 03:00 PM AMBULATORY - MEDICINE [facility] [place] [facility] Sep 07, 2025 08:00 AM AMBULATORY - MEDICINE [facility] Active, Pending, and Scheduled Orders This [...] 09:49 AM Consult Order COMMUNITY CARE-PULMONARY Cons Freight Checker's Choice [place] Social History: Smoking Status (Most current) and [...] 10, 2023 01:11 PM VA-TOBACCO NEVER USED [facility] Advance Directives: All historical and current Section Date Range: From patient's date of to the date document was created. This section includes ALL of a patient's completed or amended [place] Advance and Rescinded Directives. The entries below [...] Encounter. Date/Time Encounter Note(s) Provider Source Mar 08, 2025 10:48 AM PHYSICAL MEDICINE REHAB NOTE: LOCAL TITLE: GEROFIT-SUPERVISED EXERCISE NOTE STANDARD TITLE: PHYSICAL MEDICINE REHAB NOTE DATE OF NOTE: MAR 08, 2025@10:48 ENTRY DATE: MAR 08, 2025@10:48:41 AUTHOR: JACQUI HORTON EXP COSIGNER: URGENCY: STATUS: [...] neuromotor exercises. Exercise participation was supervised by [facility] staff and any questions/concerns were addressed with the patient. Modifications were made to programming as appropriate to suit Veterans individual needs, preferences, and whole health concerns. /damaris/ MILLY BALTAZAR LICENSE BASKETBALLS AND FOOTBALLS REVERSER Signed: 03/08/2025 10:54 JACQUI HORTON [facility]
--- OUTSIDE RECORDS SUMMARY | 2025-03-09 15:44 | XMS_ITS ---
Author Name [place] Address [address] [place] [address] Care Team Providers Care Masseur/Masseuse Name Role Phone HUNTER MARTINEZ Primary Care [...] Carmona's Name Patient's Relationship to Policy Carmona [facility] MEDICAID [facility] Nov 16, 2014 01 [id number] LAUREL,JARRETT DE [place] PATIENT MEDICARE (WNR) MEDICARE (M) PART A Jul 17, 2018 PART A [id number] LAUREL,JARRETT MEJIASONY PATIENT MEDICARE (WNR) MEDICARE (M) PART B Jul 17, 2018 PART B [id number] LAUREL,JARRETT MEJIASONY PATIENT MEDICARE (WNR) MEDICARE (M) PART A Jul 17, 2018 PART A [id number] LAUREL,JARRETT MEJIASONY PATIENT MEDICARE (WNR) MEDICARE (M) PART B Jul 17, 2018 PART B [id number] LAUREL,JARRETT DE [place] PATIENT Selected Encounter This section includes the information on record at [place] for the Encounter. Date/Time Encounter Type Encounter Description Reason Pro vider Source Sep 16, 2024 11:50 AM Outpatient Encounter ADMIN PAT ACTIVTIES (SUNGNONCT) IHE Encounter Template Text not used by [place] Plan of Treatment: Future Appointments (+ 6 months) and Future Tests (+/- 45 days) The Plan of Treatment section includes future care activities for the patient from all [place] treatmentfacilities. This section includes future appointments and future orders which are active, pending or scheduled. Future Appointments This section includes appointments that were scheduled to occur 6 months from the date of the Encounter, up to a maximum of 20 appointments. The data comes from all [place] treatment facilities. Appointment Date/Time Appointment Type Appointme nt Facility Name Sep 22, 2024 11:00 AM AMBULATORY - NONE [facility] Sep 27, 2024 12:00 PM AMBULATORY [facility] NONE [facility] [place] [facility] Sep 28, 2024 04:00 PM AMBULATORY - [facility]HAB [facility]ICIN [facility] [place] [place] [facility] Oct 04, 2024 03:00 PM [facility] Oct 06, 2024 11:00 AM AMBULATORY - NONE [facility] Oct 11, 2024 12:00 PM AMBULATORY - NONE [facility] [place] [place] [facility] Oct 20, 2024 11:00 AM AMBULATORY - NONE [facility] [facility] Oct 25, 2024 12:00 PM AMBULATORY - NONE [facility] [place] [place] [facility] Oct 27, 2024 11:00 AM AMBULATORY - NONE [facility] Oct 27, 2024 02:30 PM AMBULATORY - MEDICINE [facility] [place] [place] [facility] Nov 03, 2024 09:00 AM AMBULATORY - MEDICINE [facility] [place] [place] [facility] Nov 03, 2024 11:00 AM AMBULATORY - NONE [facility] [facility] Dec 01, 2024 08:30 AM AMBULATORY - REHAB MEDICIN [facility] [place] [place] [facility] Dec 06, 2024 01:30 PM AMBULATORY - MEDICINE [facility] [place] Dec 08, 2024 11:00 AM AMBULATORY - NONE [facility] Dec 13, 2024 12:00 PM AMBULATORY - NONE [facility] [place] [place] [facility] Dec 15, 2024 11:00 AM AMBULATORY - NONE [facility] [facility] Dec 15, 2024 02:30 PM [facility] Dec 29, 2024 11:00 AM AMBULATORY - NONE [facility] Jan 05, 2025 11:00 AM AMBULATORY - NONE [facility] Active, Pending, and Scheduled Orders This section includes a listing of several types of active, pending, and scheduled orders, including clinic medications orders, diagnostic test orders, procedure orders and consult orders; where the start date of the order is 45 days before the date of the Encounter or 45 days after the date of theEncounter. The data comes from all [place] treatment facilities. Test Date/Time Test Type Test Details Facility Name Oct 27, 2024 12:00 AM Laboratory - Chemistry Order MICROALBUMIN CREATININE RATIO PANEL URINE (RANDOM) SP [facility] Social History: Smoking Status (Most current) and Tobacco Use (All prior to encounter date) This section includes the most current, and the historical, smoking and tobacco- related health factors from the [place] facility where the Encounter took place. Current Smoking Status This section includes the most current smoking, or tobacco-related health factor, from the [place] facility where the Encounter took place. Date/Time Current Smoking Status Comment Facil ity Dec 10, 2023 01:11 PM VA-TOBACCO NEVER USED [facility] Advance Directives: All historical and current Section Date Range: From patient's date of to the date document was created. This section includes ALL of a patient's completed or amended [place] Advance and Rescinded Directives. The entries below indicate that a directive exists for the patient, but an actual copy is not included with this document. The data comes from all [place] facilities. Date Advance Directives Provider Source Aug 07, 2015 ADVANCE DIRECTIVE BEN BERNABE [facility] Encounter Notes: All associated encounter notes This section contains the clinical notes associated to the Encounter. Date/Time Encounter Note(s) Provider Source Sep 16, 2024 11:50 AM PHARMACY NOTE: LOCAL TITLE: V1 PHARMACY CUSTOMER CARE MEDICATION RENEWAL STANDARD TITLE: PHARMACY NOTE DATE OF NOTE: SEP 16, 2024@11:50 ENTRY DATE: SEP 16, 2024@11:50:09 AUTHOR: JUANA VALENZUELA COSIGNER: URGENCY: STATUS: COMPLETED Date: Sep Division: [facility] referred by Pharmacy Call Center for medication renewal: Non-controlled/maintenanc e medication Medications requested: [id number] ALBUTEROL 90MCG (CFC-F) 200D ORAL INHL Defer to primary care provider To be mailed . Please review and renew if appropriate. *This note was generated by [facility]/[place] Pharmacy Customer Care. If you have any questions or need assistance, do not contact this author. Please refer all questions to your local, on-site pharmacy departments. /damaris/ JUANA VALENZUELA CPhT Administrative Assistant Data Entry, [place]/Pharmacy Customer Care Signed: 09/16/2024 11:50 Receipt Acknowledged By: 09/21/2024 14:41 /es/ HUNTER MARTINEZ NP NURSE PRACTITIONER 09/16/2024 12:43 /damaris/ LUCY WILSONN RN-BC REGISTERED NURSE for JUANA HARRIS [place] [facility]
--- OUTSIDE RECORDS SUMMARY | 2025-03-09 15:44 | XMS_ITS | Encounter Summary ---
Author Name [place] Organization [place] Address [address] [place] [id number] Care Team Providers Care Sport Intern Name Role Phone HUNTER MARTINEZ Primary Care [...] Carmona's Name Patient's Relationship to Policy Carmona [facility] MEDICAID [facility] Nov 16, 2014 01 [id number] JARRETT BARRAGAN PATIENT MEDICARE (WNR) MEDICARE (M) PART A Jul 17, 2018 PART A [id number] LAUREL,JARRETT DE [place] PATIENT MEDICARE (WNR) MEDICARE (M) PART B Jul 17, 2018 PART B [id number] LAUREL,JARRETT MEJIASONY PATIENT MEDICARE (WNR) MEDICARE (M) PART A Jul 17, 2018 PART A [id number] JARRETT BARRAGAN PATIENT MEDICARE (WNR) MEDICARE (M) PART B Jul 17, 2018 PART B [id number] JARRETT BARRAGAN PATIENT Selected Encounter This section includes the information on record at [place] for the Encounter. Date/Time Encounter Type Encounter Description Reason Pro vider Source Apr 28, 2024 01:22 PM Outpatient Encounter COMMUNITY CARE CONSULT IHE Encounter Template Text not used by [place] Plan of Treatment: Future Appointments (+ 6 [...] Appointment Type Appointme nt Facility Name May 05, 2024 11:00 AM AMBULATORY - NONE [facility] [facility] May 10, 2024 12:00 PM AMBULATORY [facility] NONE [facility] [place] [facility] May 12, 2024 11:00 AM AMBULATORY - NONE [place] May 17, 2024 03:00 PM [facility]ORY [facility]ICINE [facility] May 26, 2024 11:00 AM AMBULATORY - NONE [place] Jun 02, 2024 11:00 AM AMBULATORY - NONE [place] Jun 07, 2024 12:00 PM AMBULATORY - NONE [facility] [place] [facility] Jun 09, 2024 11:00 AM AMBULATORY - NONE [place] Jun 16, 2024 10:00 AM AMBULATORY - MEDICINE [facility] [place] [place] [facility] Jun 16, 2024 11:00 AM AMBULATORY - NONE [place] Jun 23, 2024 11:00 AM AMBULATORY - NONE [place] Jun 28, 2024 12:00 PM AMBULATORY - NONE [facility] [place] [facility] Jul 05, 2024 01:00 PM [facility]ULATORY - [facility]ICINE [facility] Jul 12, 2024 12:00 PM AMBULATORY - NONE [facility] [place] [facility] Jul 14, 2024 11:00 AM AMBULATORY - NONE [place] Jul 21, 2024 11:00 AM AMBULATORY - NONE [place] Jul 26, 2024 12:00 PM AMBULATORY - NONE [facility] [place] [facility] Jul 28, 2024 01:00 PM AMBULATORY - MEDICINE [facility] [place] [place] [facility] Aug 09, 2024 12:00 PM AMBULATORY - NONE [facility] [place] [facility] Aug 11, 2024 11:00 AM AMBULATORY - NONE [facility] Lab Results: +/- 30 [...] Type Comment Apr 21, 2024 01:35 PM [facility] MICROALBUMIN CREATININE RATIO PANEL URINE Spe cimen Type: URINE No comment entered. Ordering Provider: ADIEL THOMPSON Report Released Date/Time: Apr 21, 2024 01:11 PM Reporting Lab: [address] [address] Performing Lab: [address] [address] MICROALBUMIN/CREATININE RATIO canc mg/g 0-29.9 MICROALBUMIN,QUANTITATIVE < 0.5 mg/dL RR UNAVAIL CREATININE URINE 13.76 mg/dL Apr 21, 2024 01:35 PM [facility] HEMOGLOBIN A1C PANEL BLOOD Specimen Type: [...] Apr 21, 2024 01:11 PM Reporting Lab: [address] [address] Performing Lab: [address] [address] HEMOGLOBIN A1C 6.2 H 4.0-5.6 Apr 21, 2024 01:35 PM [facility] BASIC METABOLIC PANEL (non-fasting) SERUM Spe cimen Type: SERUM No comment entered. Ordering Provider: ADIEL THOMPSON Report Released Date/Time: Apr 21, 2024 01:11 PM Reporting Lab: [facility] [address] [facility] [address] Performing Lab: [facility] [address] [facility] [address] UREA NITROGEN 21 mg/dL 7-25 GLUCOSE 95 [...] 10, 2023 01:11 PM VA-TOBACCO NEVER USED [facility] Advance Directives: All historical and current Section Date Range: From patient's date of to the date document was created. This section includes ALL of a patient's completed or amended [place] Advance and Rescinded Directives. The entries below [...] Encounter. Date/Time Encounter Note(s) Provider Source Apr 28, 2024 01:22 PM ADMINISTRATIVE NOTE: LOCAL TITLE: ADMINISTRATIVE NOTE STANDARD TITLE: ADMINISTRATIVE NOTE DATE OF NOTE: APR 28, 2024@13:22 ENTRY DATE: APR 28, 2024@13:22:54 AUTHOR: MARYSE BARBOSA COSIGNER: URGENCY: STATUS: COMPLETED ADMINISTRATIVE NOTE Has ADDENDA [facility] provider is requesting new consult. [facility] [address] [place], [place] [address] Appt 04/28/2024 at 13:30. If in agreement please enter new [facility] pulm consult. Thank you. /lindsay BARBOSA [facility] Care RN Signed: 04/28/2024 13:25 Receipt Acknowledged By: 05/02/2024 07:47 /damaris/ HUNTER MARTINEZ NP NURSE PRACTITIONER 04/28/2024 13:45 /damairs/ TERESE MAYER RN REGISTERED NURSE 04/28/2024 ADDENDUM STATUS: COMPLETED Consult placed and awaiting PCP's signature. /damaris/ TERESE MAYER RN REGISTERED NURSE Signed: 04/28/2024 13:45 MARYSE BARBOSA [facility]
== END 2025-03-09 13:38 | disposition home or self-care (01) ==
LOC: HO.HPS 13:23
PROVIDERS: PCP Hospitalist; Visit Provider Internal Medicine Pulmonary Disease
DX: D86.9 Sarcoidosis, unspecified (principal); J45.909 Unspecified asthma, uncomplicated
CPT/HCPCS: 99214

== ENCOUNTER → 2025-03-09 13:23 | Outpatient (BNVA) | payer OTHER, SELFPAY | PROVIDERS: PCP Hospitalist; Visit Provider Internal Medicine Pulmonary Disease | DX: D86.9 Sarcoidosis, unspecified (principal); J45.909 Unspecified asthma, uncomplicated | CPT/HCPCS: 99212 ==

== ENCOUNTER 2025-07-12 12:30 | Outpatient (AMB) | payer OTHER, SELFPAY ==
[2025-07-12 12:51] VITALS: BP 124/78; PULSE 133; O2SAT 95; BMI 33.8
--- NOTE | 2025-07-12 12:51 | MHC.OFFVIS ---
Vital Signs 07/12/25 12:51 Height 5 ft 11 in Weight 242 lb 8.136 oz BMI 33.8 BP 124/78 Blood Pressure Location Lt brachial Position Sitting Pulse 133 H Pulse Source Pulse Oximeter Pulse Oximetry (%) 95 Oxygen Delivery Method Room Air Intake Visit Reasons: copd Photolithographic Stripper Required: No Accompanied by: Self / Same As Patient Allergies penicillin V Allergy (Unknown, Verified 07/12/25 12:54) Unknown bee stings Allergy (Severe, Uncoded 09/25/23 14:44) Anaphylaxis HPI HPI copd: Details: 69-year-old gentleman, lifetime nonsmoker, followed for underlying sarcoidosis diagnosed with cervical lymph node biopsy.? After the last office visit he was switched from Advair to Symbicort secondary to poor viability tolerate powder inhalers he now reports significantly improved symptom control. He denies any recent exacerbations. [facility] Social History (Updated 07/12/25 @ 12:55 by Selin Castillo CMA) Patient Tobacco Use Status: Never used Tobacco Advance Directives Date on File: 08/31/20 Review of Systems Const Denies daytime sleepiness, Denies excessive sweating, Denies fatigue, Denies fever(s), Denies lethargy, Denies malaise, Denies night sweats, Denies snoring and Denies weight loss Eyes Denies blurry vision and Denies itchy eyes ENT Denies nasal congestion, Denies post nasal drip, Denies sinus pain, Denies sinus pressure and Denies other ( Thrush) Card Denies chest pain, Denies pedal edema, Denies dyspnea, Denies orthopnea and Denies paroxysmal nocturnal dyspnea Resp Denies cough, Denies hemoptysis, Denies excessive phlegm production, Denies dyspnea, Denies snoring and Denies wheezing GI Denies abdominal pain and Denies heartburn Musc Denies myalgias, Denies arthralgias and Denies joint swelling Skin/Breast Denies rash Neuro Denies memory loss and Denies seizure-like activity Psych Denies abnormal sleep pattern, Denies anxiety and Denies memory loss Endo Denies excessive sweating, Denies fatigue and Denies heat intolerance Nitin/Lymph Denies easy bruising Aller/Immun Denies itchy eyes, Denies seasonal rhinorrhea and Denies wheezing Physical Exam Vital Signs: Last Vital Signs Pulse 133 H 07/12/25 12:51 BP 124/78 07/12/25 12:51 Pulse Ox 95 07/12/25 12:51 Oxygen Delivery Method Room Air 07/12/25 12:51 BMI result Body Mass Index 33.8 Const General: no acute distress and alert Nutritional Appearance: not obese Orientation/consciousness: Other orientation findings ( oriented) HEENT Head: Yes atraumatic Eyes General: appearance normal, both eyes and all related structures Sclerae: sclerae normal EOM: EOMs intact bilaterally Neck Neck: Yes supple Lymphatic: no lymphadenopathy noted Resp Effort & Inspection: normal respiratory effort and no use of accessory muscles Auscultation: clear to auscultation bilaterally Cardio Rate: regular rate Rhythm: regular rhythm Heart sounds: no gallops, no murmurs and no rubs Skin General skin exam: other ( warm) Extrem General: No clubbing, No cyanosis and No edema Assessment & Plan Assessment & Plan (1) Sarcoidosis: Code(s): D86.9 - Sarcoidosis, unspecified Category: Medical Plan: No recent exacerbations. Continue to monitor clinically. (2) Reactive airway disease: Code(s): J45.909 - Unspecified asthma, uncomplicated Category: Medical Plan: Well controlled on Symbicort and albuterol MDI. Continue current regimen. Coding Level of Care Code Est Pt Level 4 (81285) Diagnoses Sarcoidosis D86.9 Reactive airway disease J45.909
== END 2025-07-12 13:07 | disposition home or self-care (01) ==
LOC: HO.HPS 12:31
PROVIDERS: PCP Hospitalist; Referring Provider Internal Medicine Pulmonary Disease; Visit Provider Internal Medicine Pulmonary Disease
DX: D86.9 Sarcoidosis, unspecified (principal); J45.909 Unspecified asthma, uncomplicated
CPT/HCPCS: 99214

== ENCOUNTER → 2025-07-12 12:30 | Outpatient (BNVA) | payer OTHER, SELFPAY | PROVIDERS: PCP Hospitalist; Visit Provider Internal Medicine Pulmonary Disease | DX: D86.9 Sarcoidosis, unspecified (principal); J45.909 Unspecified asthma, uncomplicated | CPT/HCPCS: 99212 ==